=== PATIENT | female | born 1955 | race Caucasian/White ===

== ENCOUNTER → 2023-04-02 11:28 | Outpatient (CLI) | payer OTHER, SELFPAY | PROVIDERS: PCP Family Medicine; Visit Provider Specialist | DX: G47.33 Obstructive sleep apnea (adult) (pediatric) (principal) | CPT/HCPCS: 94762 ==

== ENCOUNTER 2025-02-22 16:36 | Outpatient (CLI) | payer MEDICARE, SELFPAY ==
--- OUTSIDE RECORDS SUMMARY | 2025-01-25 20:07 | XMS_ITS | Encounter Summary ---
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 No 01/26/2025 Overall Financial Resource Strain (CARDIA) Answe r Date Recorded How hard is it for you to pa y for the very basics like food, housing, medical care, and heating? Not very hard 01/26/2025 PHQ-2 Answer Date Recorded PHQ-2 Total Score 0 01/26/2025 [facility] - Occupational Stress Questionnaire Answer Date Recorded Do you feel stress - tense, restless, nervous, or anxious, or unable to sleep at night because your mind is troubled all the time - these days? Not at all 01/26/2025 Exercise Vital Sign Answer Date Recorde d On average, how many days pe r week do you engage in moderate to strenuous exercise (like a brisk walk)? 5 days 01/26/2025 On average, how many minutes do you engage in exercise at this level? 30 min 01/26/2025 Hunger Vital Sign Answer Date Recorded Within the past 12 months, y ou worried that your food would run out before you got the money to buy more. Never true 01/27/20 25 Within the past 12 months, t he food you bought just didn't last and you didn't have money to get more. Never true 01/26/2025 PRAPARE - Transportation Answer Date Re corded In the past 12 months, has l ack of transportation kept you from medical appointments or from getting medications? No 09/21 In the past 12 months, has l ack of transportation kept you from meetings, work, or from getting things needed for daily living? No 10/10/2021 [facility] IP Transportation Answer D ate Recorded In the past 12 months, has l ack of reliable transportation kept you from medical appointments, meetings, work or from getting things needed for daily living? No 01/26/2025 Sexually Active Control Partners Comments Yes Post-menopausal Male Comments No Sex and Gender Information Value Date Recorded Sex Assigned at Not on file Legal Sex Female 8:34 PM EDT Gender Identity Not on file Sexual Orientation Not on file documented as of this encounter Last Filed Vital Signs Vital Sign Reading Time Taken Comments Blood Pressure 135/60 01/27/2025 12:04 PM EDT Pulse 67 01/27/2025 12:04 PM EDT Temperature 36.4 C (97.5 F) 01/27/2025 12:04 PM EDT Respiratory Rate 16 01/27/2025 12:04 PM EDT Oxygen Saturation 95% 01/27/2025 12:04 PM EDT Inhaled Oxygen Concentration - - Weight - - Height - - Body Mass Index - - documented in this encounter Functional Status * Alcohol Screening Score Answer Date of Assessment Author 0 01/25/2025 10:00 PM EDT Cindi Lozano RN * Drug Screening Score Answer Date of Assessment Author 0 01/25/2025 10:00 PM EDT Cindi Lozano RN * Question Answer Date of Assessment Author How often do you have a drin k containing alcohol? 0 01/25/2025 10:00 PM EDT Deja Lozano R N How many drinks containing a lcohol do you have on a typical day when you are drinking? 0 01/25/2025 10:00 PM EDT Deja Lozano R N How often do you have six or more drinks on one occasion? 0 01/25/2025 10:00 PM BENITEZT Donta Lozano RN AUDIT-C to Determine Rows 4-10 0 01/25/2025 10:00 PM EDT Deja Lozano RN * Is the person deaf or does he/she have serious difficulty hearing? Answer Date of Assessment Author No 10/17/2021 11:46 AM Latha Atkins RN * Is the person blind or does he/she have serious difficulty seeing even when wearing glasses? Answer Date of Assessment Author No 10/17/2021 11:46 AM Latha Atkins RN * Does this person have serious difficulty walking or climbing stairs? Answer Date of Assessment Author No 10/17/2021 11:46 AM Latha Atkins RN * Does this person have difficulty dressing or bathing? Answer Date of Assessment Author No 10/17/2021 11:46 AM Latha Atkins RN * Because of a physical, mental or emotional condition, does this person have difficulty doing errands alone such as visiting a doctor's office or shopping? Answer Date of Assessment Author No 10/17/2021 11:46 AM Latha Atkins RN * Question Answer Date of Assessment Author Little interest or pleasure in doing things 0 01/26/2025 2:26 PM EDT Leatha Mansfield RN Feeling down, depressed, or hopeless 0 08/0 12/2024 2:26 PM EDT Leatha Mansfield RN PHQ-2 Total Score 0 01/26/2025 2:26 PM EDT Leatha Mansfield RN * PHQ-9 Total Score Answer Date of Assessment Author 0 01/26/2025 2:26 PM EDT Lyle Mansfield RN * PHQ-2 Total Score Answer Date of Assessment Author 0 01/26/2025 2:26 PM EDT Lyle Mansfield RN * Suicide Severity Rating Answer Date of Assessment Author No Risk 01/25/2025 10:49 PM EDT Cindi Lozano RN * [place] Suicide Severity Rating Scale (Q shift for moderate and high) Question Answer Date of Assessment Author 1. In the past month, have y ou wished you were or wished you could go to sleep and not wake up? 0 01/25/2025 10:49 PM EDT Deja Trujillo RN 2. In the past month, have y ou actually had any thoughts of killing yourself? (If no, skip to question 6) 0 01/25/2025 10:49 PM EDT Deja Lozano R N 6. Have you ever done anythi ng, started to do anything, or prepared to do anything to end your life? 0 01/25/2025 10:49 PM EDT Deja Oates RN documented as of this encounter Mental Status * Because of a physical, mental or emotional condition, does this person have serious difficulty concentrating, remembering or making decisions? Answer Entry Date Author No 10/17/2021 11:46 AM EDT Latha Loza RN documented in this encounter Discharge Summaries * Jone Watkins MD - 01/27/2025 12:00 PM EDT [facility] Discharge Summary Patient Name: Juani Arenas : 1955 Admit Date: 01/25/2025 Discharge Date: 01/27/2025 Admitting Physician: Edenilson Hirsch MD Discharging Physician: Jone Watkins MD Reason for Hospitalization: Active Hospital Problems *TIA (transient ischemic attack) Expressive aphasia Chronic a-fib (HCC) Coronary artery disease involving confederated salish coronary artery of confederated salish heart without angina pectoris Type 2 diabetes mellitus (HCC) Mild intermittent asthma without complication Hypothyroid Pure hypercholesterolemia Brief Hospital Summary: Juani Arenas is a 69 y.o. female admitted for transient neurologic event suspected to have beenTIA or recrudescence of prior stroke symptoms. Neurology consulted. Patient underwent CT head, CT angiogram head and neck, and MRI brain. EEG and echocardiogram completed as well. She was recommendedto remain on aspirin, Eliquis, and Crestor. LDL noted to be <70. Patient discharged home. ADDENDUM 02/01/2025: UA and urine culture results suggestive of UTI. Called patient and discussed. She denies any typical UTI symptoms, but reports she has had issues with UTI in the past with minimalsymptoms. Course of Keflex 500mg BID for 7 days sent to pharmacy. Patient in agreement with plan. Labs and imaging follow-up needed: Pending Labs Order Current Status Collection Date and Time URINE CULTURE (NO STAIN) In process 01/26/2025 11:39 AM Consultants: IP CONSULT TO NEUROLOGY Discharge Exam: General: Well appearing female. No acute distress. Lungs: Clear to auscultation bilaterally. Normal effort. Cardiac: Regular rate and rhythm. Abdomen: Soft. No tenderness. No distention. Normal bowel sounds. Extremities: No edema. Skin: Warm, dry. Neurologic: Alert. Oriented to person, place, time. Symmetrical face. PERRL, EOMI. Normal speech. Correct Full Discharge Med List: Medication List START taking these medications cephALEXin 500 mg Cap Dose: 500 mg Qty: 14 Capsule Refills: 0 Commonly known as: KEFLEX 500 mg, Oral, 2 TIMES DAILY CONTINUE taking these medications ACCU-CHEK GUIDE GLUCOSE METER Misc Refills: 0 Generic drug: Blood-Glucose Meter albuterol 90 mcg/actuation Hfaa Dose: 1 Puff Refills: 0 Commonly known as: PROVENTIL HFA;VENTOLIN HFA albuterol-ipratropium 3 mg-0.5 mg(2.5 mg base)/3 mL Nebu Dose: 3 mL Refills: 0 Commonly known as: DUO-NEB apixaban 5 mg Tab Dose: 5 mg Refills: 0 Commonly known as: ELIQUIS aspirin 81 mg Cap Dose: 1 Capsule Refills: 0 Blood Sugar Diagnostic Strp Refills: 0 BREZTRI AEROSPHERE 160-9-4.8 mcg/actuation Hfaa Dose: 1 Puff Refills: 0 Generic drug: zgugsofaxu-cefnexba-xfbsryhbod dilTIAZem 30 mg Tab Dose: 30 mg Refills: 0 Commonly known as: CARDIZEM fUROsemide 20 mg Tab Dose: 20 mg Refills: 0 Commonly known as: LASix Lancets Misc Refills: 0 LEVOthyroxine 88 mcg Tab Dose: 88 mcg Refills: 0 Commonly known as: SYNTHROID montelukast 10 mg Tab Dose: 10 mg Refills: 0 Commonly known as: SINGULAIR pantoprazole 40 mg Tbec Dose: 1 Tablet Refills: 0 Commonly known as: PROTONIX rosuvastatin 5 mg Tab Dose: 5 mg Refills: 0 Commonly known as: CRESTOR VITAMIN D3 10 mcg (400 unit) Cap Dose: 2 Capsule Refills: 0 Generic drug: cholecalciferol (vitamin D3) STOP taking these medications tirzepatide (weight loss) 2.5 mg/0.5 mL Pnij Commonly known as: Zepbound Where to Get Your Medications These medications were sent to [facility] [place] [id number] - [phone] - [phone] [facility] [address], [facility] [address] cephALEXin 500 mg Cap Condition at Discharge: good Disposition: Home Follow-up: MD Referral Line [phone] Please Call This Number To Establish A Family Physician. [phone] Follow up in 3 day(s) Primary care follow up Time spent on discharge: 30 to 74 minutes Jone Watkins MD documented in this encounter Medications at Time of Discharge albuterol (PROVENTIL HFA;VENTOLIN HFA) 90 mcg/actuation Inhl HFA Aerosol Inhaler Inhale 1 Puff into the lungs as needed. albuterol-ipratro pium (DUO-NEB) 0.5 mg-3 mg(2.5 mg base)/3 mL Inhl Solution for Nebulization Take 3 mL by nebulization as needed. apixaban (ELIQUIS) 5 mg Oral Tablet Take 5 mg by mouth 2 times daily. Blood Sugar Diagnostic Misc Strip by [facility].(Non-Drug; Combo Route) route 2 times daily. Blood-Glucose Meter (ACCU-CHEK GUIDE GLUCOSE METER) Misc Misc by [facility].(Non-Drug; Combo Route) route once. budesonide-glycop yr-formoterol (BREZTRI AEROSPHERE) 160-9-4.8 mcg/actuation Inhl HFA Aerosol Inhaler Inhale 1 Puff into the lungs daily. dilTIAZem (CARDIZEM) 30 mg Oral Tablet Take 30 mg by mouth 2 times daily. fUROsemide (LASIX) 20 mg Oral Tablet Take 20 mg by mouth daily as needed. 08/21/2021 Lancets Misc Misc by [facility].(Non-Drug; Combo Route) route 2 times daily. LEVOthyroxine (SYNTHROID) 88 mcg Oral Tablet Take 88 mcg by mouth every morning. 10/01/2021 montelukast (SINGULAIR) 10 mg Oral Tablet Take 10 mg by mouth daily. 10/01/2021 pantoprazole (PROTONIX) 40 mg Oral Tablet, Delayed Release (E.C.) Take 1 Tablet by mouth daily. 07/15/2022 rosuvastatin (CRESTOR) 5 mg Oral Tablet Take 5 mg by mouth daily. 07/21/2024 VITAMIN D3 10 mcg (400 unit) Oral Capsule Take 2 Capsules by mouth daily. 08/23/2021 aspirin 81 mg Oral Capsule Take 1 Capsule by mouth daily. cephALEXin (KEFLEX) 500 mg Oral Capsule Take 1 Capsule by mouth 2 times daily for 7 days. 14 Capsule 02/01/2025 5 documented as of this encounter Ordered Prescriptions Prescription Sig Dispense Quantity Refills Last Filled Start Date End Date cephALEXin (KEFLEX) 500 mg Oral Capsule Take 1 Capsule by mouth 2 times daily for 7 days. 14 Capsule 02/01/2025 5 documented in this encounter Discharge Disposition Disposition Code Departure Means Destination Comment s Home or Self [facility] documented in this encounter Progress Notes * Paige Hansen RN - 01/27/2025 12:30 PM EDT Patient being discharged. Discharge paperwork reviewed with patient, all questions/concerns answered at this time. IV removed, no complications. Heart monitor removed. All belongings are accounted for. * Juan Sneed MD - 01/27/2025 8:09 AM EDT Patient not seen. Discussed with this morning. No new symptoms reported and the patient continues to remain at baseline. EEG did not reveal any epileptiform abnormalities. Echo with no embolic sources. As such, the patient can continue aspirin and Eliquis as well as Crestor at home dose. No need for ASMs. Needs aggressive vascular risk factor modification as outpatient. Appreciate rest of the care per primary and consulting teams. No further recommendations from a neurological standpoint. We will sign off. Please call us with any questions or concerns. Thank you for allowing us to participate in this patient's care. Neurology Disposition- Will Sign off?: Yes (work up complete) Timeframe for follow-up?: No neurology follow up needed * Leatha Mansfield RN - 01/26/2025 2:34 PM EDT 01/26/25: CC initial/final note. CC met with patient at bedside. Pt lives with her spouse Garrett in [facility]. Pt has a rollator otherwise no further DME, home health or oxygen use prior to admit.PCP Paul, uses [facility]. PT recs reviewed and discussed. Patient declining home health and outpatient PT as recommended. PT aware she can follow up with PCP if decideonce discharged. Pt does drive, but states family will transport at time of discharge. CC to follow. * Nanda Arnold NA - 01/26/2025 12:22 PM EDT Followed up with patient on their request for additional information on Advance Directives. Patient declined information. * Jacob Caicedo PharmD - 01/26/2025 12:19 PM EDT The patient and/or family/caregiver has been educated on their direct oral anticoagulant therapy and provided with written anticoagulant education material including: Indication for the medication and what to do if they miss a dose Importance of compliance with medication regimen and physician follow-up visits. Medications that will increase their bleeding risk Signs and symptoms of bleeding Jacob Caicedo PharmD * Yanna Segal, PT - 01/26/2025 10:22 AM EDT 01/26/25 0857 PT Subjective Note Type Evaluation Patient Room/Unit 3610 PT Subjective Comments #1 Pt was agreeable, pleasant and cooperative. Second attempt. 1st attempt at 0730, pt at ECHO. Others Present/Assisting MENA Herndon in to do neuro check, Neurology student in to see pt. Discharge Information Evaluation to serve as discharge summary if no further treatment provided before the facility discharge Admitting Diagnosis Stroke Like Symptoms. Past Med Hx has a past medical history of A-fib (HCC), Asthma, Atrial fibrillation (HCC), Bladder infection, Diabetes mellitus (HCC), Hyperlipidemia, Kidney failure, Kidney infection, Obesity, Pulmonary embolism (HCC), Sleep apnea, Stroke (HCC), Thyroid disease, and Tuberculosis. has a past surgical history that includes Mediastinoscopy; hip surgery (Bilateral); knee surgery (Right); ERCP (N/A, 10/11/2021); ERCP (N/A, 10/15/2021); and Cholecystectomy, laparoscopic (N/A, 2021). Diagnostic Testing CT/CTA and MRI negative for acute process. Clinical Course Pt describes sudden onset of expressive aphasia and a few minutes of being completely unable to speak. Once she could say some words, she was still struggling to process and get wordsout. She also had some RUE weakness. She reports the weakness feels resolved but she still feels her processing and speaking is not back to baseline. Pt was slightly tearful with giving this information (labile?) and did state that when the sudden onset occurred, she had a feeling she was going to . Pain Screening PT/OT Patient Currently in Pain No Cognition Orientation Intact Arousal Impaired Arousal Impairment Delayed responses to stimuli (Very slight delay in processing and forumlating responses.) Safety Awareness Normal Affect/Ability to cope Impaired Affect/Ability to cope impairment Tearful Command Following Normal Memory Intact Communication Impaired Verbal processing While no speficic aphasia noted, no word finding or wrong words noted, pt does take slightly more time to think/process and respond. She has a perception that this has not yet fullyresolved. Additional comments Pt is able to answer, respond and give details. She is very engaged and puts forth good effort. Precautions Therapy Precautions Yes Precaution Info Given Yes;To use call light to request assistance with all mobility Other precautions Pt is a high falls risk due to previous RLE weakness. Home Living/Prior Function Type of Home Apartment Home Layout One level;Tub/Shower Number of Steps 0 Additional Comments Pt has an old rollator that was given to her by a neighbor. It is in poor repair. Pt does use 4WW at all times for gt. Home Equipment 4 wheeled walker;Grab bars Level of Assistance Independent with ADLs ;Independent with functional transfers;Needs assistance with homemaking;Ambulatory in home Lives With Spouse Additional Comments Pt reports she had a blood clot in R leg about 2 years ago that required extensive treatment. She states that it damaged her femoral nerve and that she has catastropic weakness inLLE and no sensation in LLE. This is why she always uses a RW. Coord/Sensation Assessed Impaired Light Touch Partial deficits in the RUE;Severe deficits in the LLE Perception Perception Grossly intact/normal Observation Presentation Patient seated edge of bed Posture 5'6 233# Observation Telemetry UE Assessment LUE Assessment WFL RUE Assessment X RUE Additional Comments RUE is WFL for AROM and strength, but there is a very slight asymmetry noted that RUE is slightly weaker than LUE. Sensation RUE intact, but takes longer to verbalize. LE Assessment LLE Assessment X LLE Additional Comments LLE has catastrophic weakness noted in hip flexors, quads. She is not able to hold RLE in LAQ with any resistance. She can take very touch resistance to hamstrings. She reports this is baseline for her since the blood clot in LLE. RLE Assessment WFL Bed Mobility Additional Comments Not tested, sitting on side of bed just back from ECHO with transport. Transfers Sit to Stand Contact guard assist Stand to Sit Contact guard assistance Bed to/from chair Contact guard assist Gait Gait Contact guard assist Gait Distance (Feet) 20 Feet (x3) Assistive Device 2 Wheel walker Pattern Decreased stance time L;Antalgic;Hip hike L;Foot flat L;L genurecurvatum;Decreased step length L Additional Comments Pt stands with LLE locked into extension-into some genurecurvatum. She does notuse knee motion in gt, but hikes hip to clear foot and ambulates with a straight leg. She states this is her baseline. PT/OT Mobility Documentation PT/OT Mobility Score 6 AM PAC: How much help from another person does the patient currently need... turning from your back to your side while in a flat bed without using bedrails? 3 moving from lying on your back to sitting on the side of a flat bed without using bedrails? 3 moving to and from a bed to a chair? 3 standing up from a chair using your arms (e.g. wheelchair, or bedside chair)? 3 need to walk in hospital room? 3 climbing 3-5 steps with a railing? 2 AM PAC: BASIC MOBILITY SCORING AM PAC Moblity Raw Score 17 AM PAC Mobility CMS 0-100% Functional Percentage 43.83 AM PAC Mobility CMS G Code Modifier CK Balance Sitting Balance 4/5 moves/returns trunkal midpoint 1-2 inches in multiple planes Standing Balance 2/5 indep, requires both UE support Additional comments Pt definately needs UE support for gt. Exercise Additional Comments Assisted to BR, pt washed hands/face, brushed teeth, combed hair. Then had pt ambulate again for neuro to observe. Menu obtained for pt to order breakfast. Education Education To use call light to request assistance with all mobility Patient Safety Patient Safety Patient left in chair with needs in reach;Nursing notified of status;Chair/personal alarm activated Assessment Assessment Decreased gait;Decreased Left Lower Extremity strength;Decreased Right Upper Extremity ROM Prognosis Good Rationale for Skilled Therapy Fall Risk;Balance Deficits;Not safe ambulating independently Additional Comments Pt is near baseline. She has baseline issues with LLE. She does have some very mild weakness RUE and still feels like her speech is not back to baseline. Goals Patient and/or Family Goal To go home. PT GOALS (Yes/No) Yes Add Goals Will Ambulate With 2 wheel walker;51-100 feet Goal Formulation With patient Time for Goal Achievement/Duration of Treatment 1 week Plan Treatment/Interventions Gait training PT Frequency 3-5x/week Recommendation PT Recommendation Home with prior support;Low frequency therapy with intensity appropriate for patient need recommended. Additional PT discharge information Pt may benefit from OP PT to address slight weakness in RUE andto possibly work towards strengthening of LLE to improve safety and decrease risk of falls with injury. Time In / Time Out [id number] IP PT Evaluation Minutes 10 IP PT Treatment Minutes 43 (23gt, 20 TA) * Edenilson Hirsch MD - 01/26/2025 9:54 AM EDT HOSPITALIST PROGRESS NOTE Admit Date: 01/25/2025 LOS: 1 day FOLLOW UP REASON (S): Transient expressive aphasia with right upper extremity weakness, history of A-fib, history of DVT/PE Subjective: Seen today, doing well. No fever. No sob. No nausea vomiting. Was transient expressive aphasia felt I was going to while eating with her . No recent headache. No recent stress. Was placed on aricept recently for memory loss (has not picked up med yet). Objective: I have reviewed all labs, imaging studies and current inpatient medications as of this date Scheduled Meds: apixaban 5 mg Oral BID aspirin 81 mg Oral Daily budesonide-formoteroL 2 Puff Inhalation RESP BID cholecalciferol (vitamin D3) 800 Units Oral Daily dilTIAZem 30 mg Oral 2 times per day Insulin Calculator (AMMONIA REFRIGERATION TECHNICIAN) - FSBS (Correction Only) Input 1 Each MISCELLANEOUS QID MEALTIME/HS And insulin aspart (NovoLOG) - Correction - Calculator 0-40 Units Subcutaneous QID MEALTIME/HS LEVOthyroxine 88 mcg Oral QAM montelukast 10 mg Oral Daily pantoprazole 40 mg Oral Daily rosuvastatin 5 mg Oral Daily Continuous Infusions: BP 135/62 (BP Location: Right arm, Patient Position: Sitting) Pulse 62 Temp 97.1 ??F (36.2 ??C)(Oral) Resp 16 SpO2 99% Patient is alert, awake, oriented x3 Clear lungs auscultation Regular heart rate, no audible murmur Soft, nontender to palpation No leg edema Radiology: EK EKG 12 LEAD Result Date: 01/26/2025 [facility] Test Date: 2025-01-25 Pat Name: JUANI ARENAS Department: DEPID Room: E3610 Gender: Female Instrument Designer: : 1955 Requested By: EDENILSON HIRSCH OrderNumber: [id number] Reading MD: Rikki Calderon Measurements Intervals [place] Rate: 60 P: 61 WA: 168 QRS: -8 QRSD: 92 T: 23 QT: 428 QTc: 430 Interpretive Statements SINUS RHYTHM BORDERLINE LEFT AXIS DEVIATION NONSPECIFIC T WAVE ABNORMALITY WARNING: DATA QUALITY MAY AFFECT INTERPRETATION Electronically Signed On 01-26-2025 06:47:17 EDT by Rikki Calderon MRI BRAIN WO CONTRAST Result Date: 01/25/2025 MRI BRAIN WITHOUT CONTRAST, 01/25/2025 10:16 PM CLINICAL HISTORY: -stroke. COMPARISON: None. PROCEDURE COMMENTS: Multiplanar multiecho MR imaging of the brain including standard spin echo and diffusionsequences. FINDINGS: Moderate motion degradation of the examination is noted. Background involutional change including white matter hyperintensities typical of chronic microvascular ischemic disease.No acute stroke, hemorrhage, or mass lesion identified. Included portions of the paranasal sinuses,mastoids, and orbits unremarkable. Moderate degenerative changes of the cervical spine are partially imaged. * No acute intracranial abnormality. - Note: Radiology results need to be interpreted within a comprehensive clinical context. If you have questions about the radiology report, please contact the office of the ordering clinician. 69-year-old female with history of A-fib, DVT PE on Eliquis, came in from [facility] for evaluation of expressive aphasia. MRI of the brain with no stroke. Pending EEG. Seen by neurology. Expect home later or in a.m. ASSESSMENT AND RECOMMENDATIONS: Transient expressive aphasia. Differential include TIA. 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 MRI of the brain here with no stroke Echocardiogram pending Currently has no neurological deficit Continue with telemetry Currently on Eliquis and aspirin, statin PT eval Seen by neurology, EEG pending History of atrial fibrillation On Eliquis, diltiazem History of DVT and PE Continue with Eliquis History of prior stroke Hypothyroidism Levothyroxine Previous retroperitoneal hemorrhage on coumadin History of obesity Discussed with patient Edenilson Hirsch MD * Jesse Merino MD - 01/26/2025 12:04 AM EDTAssociated Problem(s): TIA (transient ischemic attack) Likely TIA given near complete resolution of symptoms CT head, CTA head/neck negative for any acute abnormalities MRI brain here at [facility] showed no evidence of acute stroke Resume 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 Eliquis/aspirin/Crestor Patient inquiring if there is benefit for adding Plavix, will check with neurology 2D echo with bubble study Neurology consult No evidence of recurrent A-fib on EKG/telemetry so far Risk factor reduction * Jesse Merino MD - 01/26/2025 12:04 AM EDTAssociated Problem(s): Expressive aphasia Likely TIA given near complete resolution of symptoms CT head, CTA head/neck negative for any acute abnormalities MRI brain here at [facility] showed no evidence of acute stroke Resume 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 Eliquis/aspirin/Crestor Patient inquiring if there is benefit for adding Plavix, will check with neurology 2D echo with bubble study Neurology consult No evidence of recurrent A-fib on EKG/telemetry so far Risk factor reduction * Jesse Merino MD - 01/26/2025 12:04 AM EDTAssociated Problem(s): Pure hypercholesterolemia 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 Crestor Lipid panel in a.m. ordered * Jesse Merino MD - 01/26/2025 12:04 AM EDTAssociated Problem(s): Hypothyroid 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 levothyroxine Appears clinically euthyroid * Jesse Merino MD - 01/26/2025 12:04 AM EDTAssociated Problem(s): Mild intermittent asthma without complication Resume albuterol and Symbicort inhalers * Jesse Merino MD - 01/26/2025 12:04 AM EDTAssociated Problem(s): Type 2 diabetes mellitus (HCC) Sliding scale insulin Last A1c 5.9 in July * Jesse Merino MD - 01/26/2025 12:04 AM EDTAssociated Problem(s): Chronic a-fib (HCC) On rate control with Cardizem 30 Mg twice daily Resume 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 Eliquis Currently in sinus rhythm * Jesse Merino MD - 01/26/2025 12:04 AM EDTAssociated Problem(s): Coronary artery disease involving confederated salish coronary artery of confederated salish heart with out angina pectoris Resume aspirin, statin for secondary prevention Follows with cardiology at [place] documented in this encounter H&P Notes * Jesse Merino MD - 01/25/2025 8:28 PM EDT Images from the original note were not included. HISTORY AND PHYSICAL Name: Juani Arenas : 1955 AGE: 69 y.o. PCP: No primary care provider on file. Admitting Physician: Jesse Merino MD Date of Admit: 01/25/2025 ASSESSMENT AND PLAN Active Hospital Problems Diagnosis *Stroke-like symptoms Expressive aphasia Chronic a-fib (HCC) Coronary artery disease involving confederated salish coronary artery of confederated salish heart without angina pectoris Type 2 diabetes mellitus (HCC) Mild intermittent asthma without complication Hypothyroid Pure hypercholesterolemia Assessment & Plan Stroke-like symptoms Expressive aphasia Likely TIA given near complete resolution of symptoms CT head, CTA head/neck negative for any acute abnormalities MRI brain here at [facility] showed no evidence of acute stroke 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 ordered Hypothyroid 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 levothyroxine Appears clinically euthyroid Mild intermittent asthma without complication Resume albuterol and Symbicort inhalers Type 2 diabetes mellitus (HCC) Sliding scale insulin Last A1c 5.9 in July Chronic a-fib (HCC) On rate control with Cardizem 30 Mg twice daily Resume 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 Eliquis Currently in sinus rhythm Coronary artery disease involving confederated salish coronary artery of confederated salish heart without angina pectoris Resume aspirin, statin for secondary prevention Follows with cardiology at [place] 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 meds to be restarted/held as appropriate above once med rec is completed VTE Prophylaxis: Qualifying Pharmacologic Prophylaxis apixaban (ELIQUIS) tablet 5 mg 2 TIMES DAILY FEN: NPO DIET Dispo: Condition requiring admission to observation for further evaluation and management. Code Status: Full CHIEF COMPLAINT: Transfer from [facility] for strokelike symptoms HISTORY OF PRESENT ILLNESS: Juani Arenas is a 69 y.o. female who presented to the ED for above complaints. Pt has a pmhx significant for stroke 3 years ago, A-fib on Eliquis, CAD, type II DM, asthma, hypothyroidism, HLD Patient presented to the ED at [facility] in [facility] earlier today with speech problems. She reported at around 11:30 AM when she was consuming lunch she had sudden onset difficulty with her speech. She reported she was mispronouncing the words and could not bring out all the words that she wanted to speak. She reported her right upper extremity was slightly weak. Denied any numbness or tingling in the extremities. Denied any facial droop or facial numbness. Denied any vision problems. She reported she had some lightheadedness along with the speech problems. She went to the ED at [place]. They obtained CT scan of the head which was negative. CTA head and CTA neck was done which was negative as well. She was considered not a candidate for TNK because symptoms were getting better and that she was on Eliquis. Patient reported symptoms have gradually been getting better and her speech is almost back to normal but not there yet. She does report compliance with Eliquis and aspirin daily. Gets most of her care at [facility]. She denied any chest pain or palpitations. ROS: All other ROS negative except as noted above ALLERGIES: Allergies Allergen Reactions Venom-Honey Bee Anaphylaxis Latex Other (See Comments) Not specified Penicillins HOME MEDS: Prior to Admission medications Medication Sig Start Date End Date Taking? Authorizing Provider albuterol (PROVENTIL HFA;VENTOLIN HFA) 90 mcg/actuation Inhl HFA Aerosol Inhaler Inhale 1 Puff intothe lungs as needed. Provider, Historical albuterol-ipratropium (DUO-NEB) 0.5 mg-3 mg(2.5 mg base)/3 mL Inhl Solution for Nebulization Take 3mL by nebulization as needed. Provider, Historical apixaban (ELIQUIS) 5 mg Oral Tablet Take 5 mg by mouth 2 times daily. Provider, Historical aspirin 81 mg Oral Capsule Take 1 Capsule by mouth daily. Provider, Historical Blood Sugar Diagnostic Misc Strip by [facility].(Non-Drug; Combo Route) route 2 times daily. Provider, Historical Blood-Glucose Meter (ACCU-CHEK GUIDE GLUCOSE METER) [facility] Misc by [facility].(Non-Drug; Combo Route) routeonce. Provider, Historical budesonide-formoteroL (SYMBICORT) 160-4.5 mcg/actuation Inhl HFA Aerosol Inhaler Inhale 2 Puffs into the lungs 2 times daily. Provider, Historical dilTIAZem (CARDIZEM LA) 180 mg Oral Tablet Sustained Release 24 hr Take 180 mg by mouth daily. Provider, Historical fUROsemide (LASIX) 20 mg Oral Tablet Take 20 mg by mouth daily as needed. 08/21/21 Provider, Historical Lancets Misc Misc by [facility].(Non-Drug; Combo Route) route 2 times daily. Provider, Historical LEVOthyroxine (SYNTHROID) 88 mcg Oral Tablet Take 88 mcg by mouth every morning. 10/01/21 Provider, Historical montelukast (SINGULAIR) 10 mg Oral Tablet Take 10 mg by mouth daily. 10/01/21 Provider, Historical pantoprazole (PROTONIX) 40 mg Oral Tablet, Delayed Release (E.C.) Take 1 Tablet by mouth daily. 07/15/22 Provider, Historical rosuvastatin (CRESTOR) 5 mg Oral Tablet Take 5 mg by mouth daily. 07/21/24 Provider, Historical tirzepatide, weight loss, (ZEPBOUND) 2.5 mg/0.5 mL SubQ Pen Injector Subcutaneous (Inject under theskin) 2.5 mg once a week. 08/17/24 Ysabel Bhatt MD VITAMIN D3 10 mcg (400 unit) Oral Capsule Take 2 Capsules by mouth daily. 08/23/21 Provider, Historical PMH: Past Medical History: Diagnosis Date A-fib (HCC) Asthma Atrial fibrillation (HCC) Bladder infection Diabetes mellitus (HCC) pt states she is no longer diabetic 10/11/21 Hyperlipidemia Kidney failure Kidney infection Obesity Pulmonary embolism (HCC) Sleep apnea Stroke (HCC) Thyroid disease Tuberculosis PMHx reviewed. Pertinent history as listed in HPI. SURGICAL HX: Past Surgical History: Procedure Laterality Date CHOLECYSTECTOMY, LAPAROSCOPIC N/A 2021 LAPAROSCOPIC CHOLECYSTECTOMY WITH INTRAOPERATIVE CHOLANGIOGRAM, COMMON BILE DUCT EXPLORATION ; Surgeon: Portillo Kerr DO; Location: [facility] MA[facility] OR; Service: General ERCP N/A 10/11/2021 ENDOSCOPIC RETROGRADE CHOLANGIOPANCREOGRAPHY with stent placement; Surgeon: Emily Viveros MD; Location: [facility] ENDOSCOPY; Service: Endoscopy ERCP N/A 10/15/2021 ENDOSCOPIC RETROGRADE CHOLANGIOPANCREOGRAPHY with sphincterotomy and stent exchange; Surgeon: Nathaly Viveros MD; Location: [facility] ENDOSCOPY; Service: Endoscopy HIP SURGERY Bilateral KNEE SURGERY Right MEDIASTINOSCOPY Surgical hx reviewed. Pertinent history as listed in HPI. FHX: Family History Problem Relation Age of Onset Diabetes Mother Heart Attack Mother Diabetes Sister Diabetes Brother Family history reviewed. Pertinent history as listed in HPI. SOCIAL HX: Social History Tobacco Use Smoking status: Never Smokeless tobacco: Never Substance Use Topics Alcohol use: No Social hx reviewed. Pertinent history as listed in HPI. OBJECTIVE: Physical Exam Vitals: 01/25/252019 BP: 153/94 Pulse: 70 Temp: 98.1 ??F (36.7 ??C) BP 153/94 (BP Location: Right arm, Patient Position: Semi Fowlers) Pulse 70 Temp 98.1 ??F (36.7??C) (Oral) Wt Readings from Last 3 Encounters: 08/17/24 233 lb 3.2 oz (105.8 kg) 11/05/21 212 lb 12.8 oz (96.5 kg) 10/10/21 224 lb 6.9 oz (101.8 kg) There is no height or weight on file to calculate BMI. Gen: Pt appears well-developed and well-nourished, in no acute distress; awake; alert HENT: normocephalic, atraumatic, moist oral mucosa, conjunctiva normal, no scleral icterus, Conjunctivae and EOM are normal MMM, Nares patent, neck with normal range of motion. Neck supple. Pulm: Normal respiratory effort; symmetric chest rise, CTAB , no rales, wheeze or ronchi CV: S1-S2 heard, RRR, no murmur, no rub or gallop Extremities - well perfused extremities; distal pulses intact, Abd: soft, non tender, no guarding or rigidity, non-distended, + bowel sounds Skin: warm, No sores, ulcers or rashes visible with pt laying in bed Lymphatic: no retroauricular lymphadenopathy, no cervical lymphadenopathy MSK: No gross deformity or contracture, no LE edema Neuro: alert and oriented to person, place, and time, speech normal Cranial Nerves: No cranial nerve deficit. Sensory: No sensory deficit. Motor: No weakness. Psych: Mood and affect normal. calm and cooperative Radiology/ Procedures/Labs: Pertinent imaging and laboratory studies mentioned above were personally reviewed unless otherwise noted. I reviewed CT head, CTA head/neck done at [facility], no acute intracranial abnormality, no LVO or dissection seen in the intracranial and cervical vessels. I personally reviewed the MRI brain done here at [place], it did not show any evidence of stroke I reviewed the EKG personally, NSR, rate 84, normal intervals, no acute ischemic changes seen Media Information Document Information Clinical Images Ekg 01/25/2025 22:27 Attached To: Hospital Encounter on 01/25/25 Source Information Jesse Merino MD Md Adult Med Document History Labs: CBC: Lab Results Component Value Date WBC 7.8 01/25/2025 RBC 4.45 01/25/2025 HGB 13.5 01/25/2025 HCT 38.8 01/25/2025 MCV 87.2 01/25/2025 MCHC 34.8 01/25/2025 RDW 12.6 01/25/2025 MPV 9.4 01/25/2025 BMP: Lab Results Component Value Date NA 139 01/25/2025 K 3.7 01/25/2025 CL 107 01/25/2025 CO2 19 (L) 01/25/2025 BUN 20 01/25/2025 CREATININE 1.22 01/25/2025 CALCIUM 9.3 01/25/2025 GLU 136 (H) 01/25/2025 Hepatic: Lab Results Component Value Date ALKPHOS 89 01/25/2025 ALT 28 01/25/2025 AST 27 01/25/2025 PROT 6.7 01/25/2025 LABBILI 0.7 01/25/2025 BILIDIR 0.3 01/25/2025 No results found for: AMYLASE , LIPASE U/A:No results found for: SPECGRAV , UAPROTEIN , BLOODU , NITRITE , LEUKOCYTESUR , WBCUA , RBCUA Coagulation: Lab Results Component Value Date INR 1.41 (H) 01/25/2025 Cardiac markers: No results found for: CKMB , MYOGLOBIN ABGs:No results found for: PH , PCO2 , PO2 , HCO3 , TCO2 , BASEEXCESS , O2SAT , INSPIREDO2 , SPECIMENTYPE Radiology: EK EKG 12 LEAD Result Date: 01/25/2025 NOTICE: Preliminary tracing available for review; Final Interpretation by physician to follow. 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 Information might be incomplete. Narrative NOTICE: Preliminary tracing available for review; Final Interpretation by physician to follow. 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 COMPARISON: None. PROCEDURE COMMENTS: Multiplanar multiecho MR imaging of the brain including standard spin echo and diffusion sequences. FINDINGS: Moderate motion degradation of the examination is noted. Background involutional change including white matter hyperintensities typical of chronic microvascular ischemic disease. No acute stroke, hemorrhage, or mass lesion identified. Included portions of the paranasal sinuses, mastoids, and orbits unremarkable. Moderate degenerative changes of the cervical spine are partially imaged. Impression * No acute intracranial abnormality. - Note: Radiology results need to be interpreted within a comprehensive clinical context. If you have questions about the radiology report, please contact the office of the ordering clinician. Jesse Merino MD This chart was completed using voice recognition technology and may contain unintended errors documented in this encounter Consult Notes * Juan Sneed MD - 01/26/2025 8:18 AM EDTAssociated Order(s): IP CONSULT TO NEUROLOGY Neurology Consult Note Admit date: 01/25/2025 Current Length of stay: 1 day(s) Chief Complaint: Transient neurological spell Requesting Provider: Dr. Jesse Merino History of Presenting Illness This is a 69 y.o. female with history of stroke (affected the right side with good recovery, 3 years ago), A fib (on Eliquis), T2DM, HLD, CAD, and sleep apnea who I am seeing in neurologic consultation for evaluation of stroke. Ms. Arenas presented to the ED at [facility] on 01/25/25 due to concerns for speech difficulties. She reported eating lunch around 11:30 am when she experienced sudden onset speech difficulties, headache, and feeling like she was dying. She described difficulty with thinking of what shewanted to say and difficulty with getting words out. She reported her headache being all over thetop of her head. She also reported mild right upper extremity weakness but stated she could still use her arm. CT head and CTA H/N were conducted at the outside hospital with no acute findings, and she was then transferred to [place]. She reported overall subjective worsening of her symptoms throughout the day, with resolution shortly after she was transferred to [facility]. Today, she feelsback to her baseline. She reports compliance with eliquis, aspirin, crestor, and all other medications. She had presented to the [facility] in 2022 with right-sided weakness and at the time, suspicion for stroke was low per documentation review. There was some concern for functional etiology. 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 ROS: Relevant review of system was completed and was negative except as mentioned in HPI Past Medical/ Surgical History Past Medical History: Diagnosis Date A-fib (HCC) Asthma Atrial fibrillation (HCC) Bladder infection Diabetes mellitus (HCC) pt states she is no longer diabetic 10/11/21 Hyperlipidemia Kidney failure Kidney infection Obesity Pulmonary embolism (HCC) Sleep apnea Stroke (HCC) Thyroid disease Tuberculosis Active Hospital Problems Diagnosis *Stroke-like symptoms Expressive aphasia Chronic a-fib (HCC) Coronary artery disease involving confederated salish coronary artery of confederated salish heart without angina pectoris Type 2 diabetes mellitus (HCC) Mild intermittent asthma without complication Hypothyroid Pure hypercholesterolemia Past Surgical History: Procedure Laterality Date CHOLECYSTECTOMY, LAPAROSCOPIC N/A 2021 LAPAROSCOPIC CHOLECYSTECTOMY WITH INTRAOPERATIVE CHOLANGIOGRAM, COMMON BILE DUCT EXPLORATION ; Surgeon: Portillo Kerr DO; Location: [facility] OR; Service: General ERCP N/A 10/11/2021 ENDOSCOPIC RETROGRADE CHOLANGIOPANCREOGRAPHY with stent placement; Surgeon: Emily Viveros MD; Location: [facility] ENDOSCOPY; Service: Endoscopy ERCP N/A 10/15/2021 ENDOSCOPIC RETROGRADE CHOLANGIOPANCREOGRAPHY with sphincterotomy and stent exchange; Surgeon: Nathaly Viveros MD; Location: [facility] ENDOSCOPY; Service: Endoscopy HIP SURGERY Bilateral KNEE SURGERY Right MEDIASTINOSCOPY Medications No current facility-administered medications on file prior to encounter. Current Outpatient Medications on File Prior to Encounter Medication Sig Dispense Refill albuterol (PROVENTIL HFA;VENTOLIN HFA) 90 mcg/actuation Inhl HFA Aerosol Inhaler Inhale 1 Puff intothe lungs as needed. albuterol-ipratropium (DUO-NEB) 0.5 mg-3 mg(2.5 mg base)/3 mL Inhl Solution for Nebulization Take 3mL by nebulization as needed. apixaban (ELIQUIS) 5 mg Oral Tablet Take 5 mg by mouth 2 times daily. Blood Sugar Diagnostic Misc Strip by Misc.(Non-Drug; Combo Route) route 2 times daily. Blood-Glucose Meter (ACCU-CHEK GUIDE GLUCOSE METER) Misc Misc by [facility].(Non-Drug; Combo Route) routeonce. ocilamqxgm-slfcnoxb-hjrwybxvjl (BREZTRI AEROSPHERE) 160-9-4.8 mcg/actuation Inhl HFA Aerosol Inhaler Inhale 1 Puff into the lungs daily. dilTIAZem (CARDIZEM) 30 mg Oral Tablet Take 30 mg by mouth 2 times daily. fUROsemide (LASIX) 20 mg Oral Tablet Take 20 mg by mouth daily as needed. Lancets Misc Misc by Misc.(Non-Drug; Combo Route) route 2 times daily. LEVOthyroxine (SYNTHROID) 88 mcg Oral Tablet Take 88 mcg by mouth every morning. montelukast (SINGULAIR) 10 mg Oral Tablet Take 10 mg by mouth daily. pantoprazole (PROTONIX) 40 mg Oral Tablet, Delayed Release (E.C.) Take 1 Tablet by mouth daily. rosuvastatin (CRESTOR) 5 mg Oral Tablet Take 5 mg by mouth daily. VITAMIN D3 10 mcg (400 unit) Oral Capsule Take 2 Capsules by mouth daily. aspirin 81 mg Oral Capsule Take 1 Capsule by mouth daily. tirzepatide, weight loss, (ZEPBOUND) 2.5 mg/0.5 mL SubQ Pen Injector Subcutaneous (Inject under theskin) 2.5 mg once a week. (Patient not taking: Reported on 01/25/2025) 2 mL 3 Scheduled Meds: apixaban 5 mg Oral BID aspirin 81 mg Oral Daily budesonide-formoteroL 2 Puff Inhalation RESP BID cholecalciferol (vitamin D3) 800 Units Oral Daily dilTIAZem 30 mg Oral 2 times per day Insulin Calculator (AMMONIA REFRIGERATION TECHNICIAN) - FSBS (Correction Only) Input 1 Each MISCELLANEOUS QID MEALTIME/HS And insulin aspart (NovoLOG) - Correction - Calculator 0-40 Units Subcutaneous QID MEALTIME/HS LEVOthyroxine 88 mcg Oral QAM montelukast 10 mg Oral Daily pantoprazole 40 mg Oral Daily rosuvastatin 5 mg Oral Daily Continuous Infusions: PRN Meds:.acetaminophen, budesonide-formoteroL AND albuterol, dextrose, glucagon AND sterile water, melatonin, ondansetron OR ondansetron Allergies Allergen Reactions Venom-Honey Bee Anaphylaxis Latex Other (See Comments) Not specified Penicillins Family History Family History Problem Relation Age of Onset Diabetes Mother Heart Attack Mother Diabetes Sister Diabetes Brother Social History Social History Tobacco Use Smoking status: Never Smokeless tobacco: Never Substance Use Topics Alcohol use: No Physical Examination: Reviewed vitals trend over past 24 hours NEUROLOGICAL EXAMINATION: MENTAL STATUS: Alert and oriented to person place and time, follows 1 and 2 step commands. CORTEX: Speech fluent and without anomia or paraphasic errors. No difficulty with naming or repetition. No neglect. Affect normal. CRANIAL NERVES: Visual perales intact. Pupils 4mm, equal and reactive to light bilaterally. EOMI. Face symmetric. Sensation intact. Palate elevates equally bilaterally, tongue midline. MOTOR: Strength: RUE: 5/5, RLE: 5/5, LUE: 5/5, LLE: 4+/5 chronically ever since retroperitoneal hematoma. Tone is normal, bulk is symmetric. SENSORY: Intact to light touch. REFLEXES: 2+ throughout BL UE, absent patellars bilaterally. No Jiang's, no clonus, downgoing toes COORDINATION: Finger to Nose testing is normal. GAIT: walks with walker, antalgic gait (keeps left leg straight due to femoral nerve issue per patient) Results: Personally reviewed the following imaging studies CT head without contrast - no acute intracranial abnormalities CTA H/N - no LVO or significant stenosis MRI brain without contrast - no acute intracranial abnormality LDL 65 Impression and Plan Ms. Arenas is a 69 year old female with a PMHx of previous stroke affecting her right side with no baseline weakness (3 years ago), A fib (on Eliquis), T2DM, HLD, CAD, and sleep apnea who presented with acute onset aphasia, RUE weakness, and headache with resolution of symptoms within 24 hours. Acute onset expressive aphasia with RUE weakness and central headache History of previous stroke A-fib Differentials include recrudescence of prior stroke symptoms in the setting of hypertensive urgency, TIA. Does need further evaluation for partial seizures. -Continue aspirin and Eliquis for secondary stroke prophylaxis. No evidence of any benefit from switching either antiplatelet agent or anticoagulant - Continue Crestor at home dose. LDL at target - Blood pressure goal normotension - EEG 4. 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 No further workup required from the standpoint. Discussed with the patient and she is in agreement. Thank you for the opportunity to participate in the care of Juani Arenas. Please do not hesitate to call with further questions or concerns. Natalya See, Medical Student Neurology I saw and evaluated this patient with the medical student. I personally obtained the history, performed the physical exam and formulated the assessment and plan in the documentation has been modifiedto reflect accuracy. TIFFANY Riddle Neurology Neurology Disposition- Will Sign off?: No Anticipated discharge timeframe?: Today Discharge when / if?: EEG completion. This note was generated using voice recognition technology. It has been reviewed by the undersigned, however, may still contain unintended errors. documented in this encounter Miscellaneous Notes * Utilization Review Notes - Damaris Cano RN - 01/27/2025 11:31 AM EDT CONT'D STAY REVIEW FROM [facility] TO [facility] 3S TELEMETRY FOR STROKE LIKE SYMPTOMS, EXPRESSIVE APHASIA + OBS ORDER ON CHART ADMIT 01/25/25 TELEMETRY, NEUROLOGY -PT FOLLOWING, ELIQUIS PO BID, INSULIN PROTOCOL, NEBS PER RESP TX, NEURO CHECKS Q4 HRS PER NEUROLOGY: Discussed with this morning. No new symptoms reported and the patient continues to remain at baseline. EEG did not reveal any epileptiform abnormalities. Echo with no embolic sources. As such, the patient can continue aspirin and Eliquis as well as Crestor at home dose. No need for ASMs. Needs aggressive vascular risk factor modification as outpatient. Appreciate rest of the care per primary and consulting teams. No further recommendations from a neurological standpoint. We will sign off. Please call us with any questions or concerns. Thank you for allowing us to participate in this patient's care. Neurology Disposition- Will Sign off?: Yes (work up complete) Timeframe for follow-up?: No neurology follow up needed D/C PLAN: INDEPENDENT PRIOR TO ADMISSION - PT RECOMMENDS HOME HEALTH AND PATIENT DECLINES AT THIS TIME; PENDING FURTHER ASSESSMENTS. * RT Oxygen Plan of Care Note - Luz Higuera RRT - 01/27/2025 8:24 AM EDT Images from the original note were not included. January 27, 2025 Oxygen Therapy: Maintain Oxygen Sat greater than or equal to: O2 Device: Room Air SpO2: 97 % Will continue to wean oxygen as tolerated to maintain titration goal. Luz Higuera, ENERGY DERIVATIVES TRADER * Utilization Review Notes - Damaris Cano RN - 01/26/2025 12:50 PM EDT ADMIT REVIEW FROM [facility] TO [facility] 3S TELEMETRY FOR STROKE LIKE SYMPTOMS,EXPRESSIVE APHASIA + OBS ORDER ON CHART ADMIT 01/25/25 TELEMETRY, NEUROLOGY -PT CONSULT, ELIQUIS PO BID, INSULIN PROTOCOL, NEBS PER RESP TX, NEURO CHECKS Q4 HRS PER H & P: Stroke-like symptoms Expressive aphasia Likely TIA given near complete resolution of symptoms CT head, CTA head/neck negative for any acute abnormalities MRI brain here at T showed no evidence of acute stroke 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 documented in this encounter Plan of Treatment Not on file documented as of this encounter Procedures Procedure Name Priority Date/Time Associated Diagnosis Comments EXTRA TUBES PANEL Routine 01/27/2025 8:46 AM EDT EXTRA LAVENDER Routine 01/27/2025 8:46 AM EDT BASIC METABOLIC PANEL CRISTIANE 01/27/2025 8:46 AM EDT GLUCOSE METER POC Routine 01/27/2025 8:45 AM EDT ECG AND WAVEFORMS - TELEMETRY Routine 01/27/2025 7:49 AM EDT GLUCOSE METER POC Routine 01/26/2025 9:47 PM EDT ECG AND WAVEFORMS - TELEMETRY Routine 01/26/2025 7:03 PM EDT GLUCOSE METER POC Routine 01/26/2025 4:53 PM EDT GLUCOSE METER POC Routine 01/26/2025 12:18 PM EDT URINALYSIS REFLEX Routine 01/26/2025 11:39 AM EDT UA W/REFLEX TO CULTURE Routine 01/26/2025 11:39 AM EDT EXTRA SHORT URINE CX Routine 01/26/2025 11:39 AM EDT URINE CULTURE (NO STAIN) Routine 01/26/2025 11:39 AM EDT EEG AWAKE AND DROWSY Routine 01/26/2025 11:20 AM EDT GLUCOSE METER POC Routine 01/26/2025 8:38 AM EDT EC ECHOCARDIOGRAM COMPLETE W DOPPLER AND COLOR FLOW MAPPING Routine 01/26/2025 7:53 AM EDT ECG AND WAVEFORMS - TELEMETRY Routine 01/26/2025 7:00 AM EDT GLUCOSE METER POC Routine 01/25/2025 11:17 PM EDT MRI BRAIN WO CONTRAST CRISTIANE 01/25/2025 10:16 PM EDT CBC WITH DIFF Early AM 01/25/2025 9:00 PM EDT LIPID PANEL REFLEX Early AM 01/25/2025 8:59 PM EDT PT / INR Routine 01/25/2025 8:59 PM EDT HEMOGLOBIN A1C Routine 01/25/2025 8:59 PM EDT HEPATIC FUNCTION PANEL Routine 01/25/2025 8:59 PM EDT BASIC METABOLIC PANEL Routine 01/25/2025 8:59 PM EDT EK EKG 12 LEAD STAT 01/25/2025 8:48 PM EDT IP CONSULT TO NEUROLOGY Routine 01/25/2025 8:48 PM EDT Procedure Note - Juan Sneed MD - 01/26/2025 8:18 AM EDTThis note is in progress. Neurology Consult Note Admit date: 01/25/2025 Current Length of stay: 1 day(s) Chief Complaint: Transient neurological spell Requesting Provider: Dr. Jesse Merino History of Presenting Illness This is a 69 y.o. female with history of stroke (affected the right sidewith good recovery, 3 years ago), A fib (on Eliquis), T2DM, HLD, CAD, andsleep apnea who I am seeing in neurologic consultation for evaluation ofstroke. Ms. Arenas presented to the ED at [facility] on 01/25/25 due toconcerns for speech difficulties. She reported eating lunch around 11:30am when she experienced sudden onset speech difficulties, headache, and feeling like she was dying. She described difficulty with thinking ofwhat she wanted to say and difficulty with getting words out. She reportedher headache being all over the top of her head. She also reported mildright upper extremity weakness but stated she could still use her arm. CThead and CTA H/N were conducted at the outside hospital with no acutefindings, and she was then transferred to [place]. She reportedoverall subjective worsening of her symptoms throughout the day, withresolution shortly after she was transferred to [facility]. Today, shefeels back to her baseline. She reports compliance with eliquis, aspirin, crestor, and all othermedications. She had presented to the [facility] in 2022 with right-sidedweakness and at the time, suspicion for stroke was low per documentationreview. There was some concern for functional etiology. 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 ROS: Relevant review of system was completed and was negative except asmentioned in HPI Past Medical/ Surgical History Past Medical History: Diagnosis Date A-fib (HCC) Asthma Atrial fibrillation (HCC) Bladder infection Diabetes mellitus (HCC) pt states she is no longer diabetic 10/11/21 Hyperlipidemia Kidney failure Kidney infection Obesity Pulmonary embolism (HCC) Sleep apnea Stroke (HCC) Thyroid disease Tuberculosis Active Hospital Problems Diagnosis *Stroke-like symptoms Expressive aphasia Chronic a-fib (HCC) Coronary artery disease involving confederated salish coronary artery of confederated salish heartwithout angina pectoris Type 2 diabetes mellitus (HCC) Mild intermittent asthma without complication Hypothyroid Pure hypercholesterolemia Past Surgical History: Procedure Laterality Date CHOLECYSTECTOMY, LAPAROSCOPIC N/A 2021 LAPAROSCOPIC CHOLECYSTECTOMY WITH INTRAOPERATIVE CHOLANGIOGRAM, COMMONBILE DUCT EXPLORATION ; Surgeon: Portillo Kerr DO; Location: [facility]; Service: General ERCP N/A 10/11/2021 ENDOSCOPIC RETROGRADE CHOLANGIOPANCREOGRAPHY with stent placement;Surgeon: Nathaly Viveros MD; Location: [facility];Service: Endoscopy ERCP N/A 10/15/2021 ENDOSCOPIC RETROGRADE CHOLANGIOPANCREOGRAPHY with sphincterotomy andstent exchange; Surgeon: Nathaly Viveros MD; [facility]; Service: Endoscopy HIP SURGERY Bilateral KNEE SURGERY Right MEDIASTINOSCOPY Medications No current facility-administered medications on file prior to encounter. Current Outpatient Medications on File Prior to Encounter Medication Sig Dispense Refill albuterol (PROVENTIL HFA;VENTOLIN HFA) 90 mcg/actuation Inhl HFA AerosolInhaler Inhale 1 Puff into the lungs as needed. albuterol-ipratropium (DUO-NEB) 0.5 mg-3 mg(2.5 mg base)/3 mL InhlSolution for Nebulization Take 3 mL by nebulization as needed. apixaban (ELIQUIS) 5 mg Oral Tablet Take 5 mg by mouth 2 times daily. Blood Sugar Diagnostic Misc Strip by Misc.(Non-Drug; Combo Route) route 2times daily. Blood-Glucose Meter (ACCU-CHEK GUIDE GLUCOSE METER) Misc Misc byMisc.(Non-Drug; Combo Route) route once. qxdtcubnxk-sdjnibtc-vonzpgbnuc (BREZTRI AEROSPHERE) 160-9-4.8mcg/actuation Inhl HFA Aerosol Inhaler Inhale 1 Puff into the lungs daily. dilTIAZem (CARDIZEM) 30 mg Oral Tablet Take 30 mg by mouth 2 times daily. fUROsemide (LASIX) 20 mg Oral Tablet Take 20 mg by mouth daily as needed. Lancets Misc Misc by Mis.(Non-Drug; Combo Route) route 2 times daily. LEVOthyroxine (SYNTHROID) 88 mcg Oral Tablet Take 88 mcg by mouth everymorning. montelukast (SINGULAIR) 10 mg Oral Tablet Take 10 mg by mouth daily. pantoprazole (PROTONIX) 40 mg Oral Tablet, Delayed Release (E.C.) Take 1Tablet by mouth daily. rosuvastatin (CRESTOR) 5 mg Oral Tablet Take 5 mg by mouth daily. VITAMIN D3 10 mcg (400 unit) Oral Capsule Take 2 Capsules by mouth daily. aspirin 81 mg Oral Capsule Take 1 Capsule by mouth daily. tirzepatide, weight loss, (ZEPBOUND) 2.5 mg/0.5 mL SubQ Pen InjectorSubcutaneous (Inject under the skin) 2.5 mg once a week. (Patient nottaking: Reported on 01/25/2025) 2 mL 3 Scheduled Meds: apixaban 5 mg Oral BID aspirin 81 mg Oral Daily budesonide-formoteroL 2 Puff Inhalation RESP BID cholecalciferol (vitamin D3) 800 Units Oral Daily dilTIAZem 30 mg Oral 2 times per day Insulin Calculator (AMMONIA REFRIGERATION TECHNICIAN) - FSBS (Correction Only) Input 1 EachMISCELLANEOUS QID MEALTIME/HS And insulin aspart (NovoLOG) - Correction - Calculator 0-40 UnitsSubcutaneous QID MEALTIME/HS LEVOthyroxine 88 mcg Oral QAM montelukast 10 mg Oral Daily pantoprazole 40 mg Oral Daily rosuvastatin 5 mg Oral Daily Continuous Infusions: PRN Meds:.acetaminophen, budesonide-formoteroL AND albuterol,dextrose, glucagon AND sterile water, melatonin, ondansetron ORondansetron Allergies Allergen Reactions Venom-Honey Bee Anaphylaxis Latex Other (See Comments) Not specified Penicillins Family History Family History Problem Relation Age of Onset Diabetes Mother Heart Attack Mother Diabetes Sister Diabetes Brother Social History Social History Tobacco Use Smoking status: Never Smokeless tobacco: Never Substance Use Topics Alcohol use: No Physical Examination: Reviewed vitals trend over past 24 hours NEUROLOGICAL EXAMINATION: MENTAL STATUS: Alert and oriented to person place and time, follows 1 and2 step commands. CORTEX: Speech fluent and without anomia or paraphasic errors. Nodifficulty with naming or repetition. No neglect. Affect normal. CRANIAL NERVES: Visual perales intact. Pupils 4mm, equal and reactive tolight bilaterally. EOMI. Face symmetric. Sensation intact. Palate elevatesequally bilaterally, tongue midline. MOTOR: Strength: RUE: 5/5, RLE: 5/5, LUE: 5/5, LLE: 4+/5 chronically eversince retroperitoneal hematoma. Tone is normal, bulk is symmetric. SENSORY: Intact to light touch. REFLEXES: 2+ throughout BL UE, absent patellars bilaterally. No Jiang's,no clonus, downgoing toes COORDINATION: Finger to Nose testing is normal. GAIT: walks with walker, antalgic gait (keeps left leg straight due tofemoral nerve issue per patient) Results: Personally reviewed the following imaging studies CT head without contrast - no acute intracranial abnormalities CTA H/N - no LVO or significant stenosis MRI brain without contrast - no acute intracranial abnormality LDL 65 Impression and Plan Ms. Arenas is a 69 year old female with a PMHx of previous strokeaffecting her right side with no baseline weakness (3 years ago), A fib(on Eliquis), T2DM, HLD, CAD, and sleep apnea who presented with acuteonset aphasia, RUE weakness, and headache with resolution of symptomswithin 24 hours. Acute onset expressive aphasia with RUE weakness and central headache History of previous stroke A-fib Differentials include recrudescence of prior stroke symptoms in thesetting of hypertensive urgency, TIA. Does need further evaluation forpartial seizures. -Continue aspirin and Eliquis for secondary stroke prophylaxis. Noevidence of any benefit from switching either antiplatelet agent oranticoagulant - Continue Crestor at home dose. LDL at target - Blood pressure goal normotension - EEG 4. 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 No further workup required from thestandpoint. Discussed with the patient and she is in agreement. Thank you for the opportunity to participate in the care of Juani Miller. Please do not hesitate to call with further questions orconcerns. Natalya See, Medical Student Neurology I saw and evaluated this patient with the medical student. I personallyobtained the history, performed the physical exam and formulated theassessment and plan in the documentation has been modified to reflectaccuracy. TIFFANY Riddle Neurology Neurology Disposition- Will Sign off?: No Anticipated discharge timeframe?: Today Discharge when / if?: EEG completion. This note was generated using voice recognition technology. It has beenreviewed by the undersigned, however, may still contain unintendederrors. ADMIT Routine 01/25/2025 8:48 PM EDT ECG AND WAVEFORMS - TELEMETRY Routine 01/25/2025 8:22 PM EDT documented in this encounter Results * EXTRA LAVENDER (01/27/2025 8:46 AM EDT) Blood VENOUS BLOOD / Unknown Venipuncture / Unknown 01/27/2025 8:46 AM EDT 01/27/2025 10:38 AM EDT us Juan Sneed MD HEMATOLOGY ORDERABLES Final R esult [facility] [address] [place] [address] * (ABNORMAL) BASIC METABOLIC PANEL (01/27/2025 8:46 AM EDT) Sodium 140 136 - 145 mmol/L 01/27/2025 10:06 AM EDT [facility] Potassium 4.2 3.5 - 5.0 mmol/L 01/27/2025 10:06 AM EDT [facility] Chloride 106 98 - 107 mmol/L 01/27/2025 10:06 AM EDT [facility] Total CO2 21(L) 22 - 29 mmol/L 01/27/2025 10:06 AM EDT [facility] Anion Gap 13 7 - 16 mmol/L 01/27/2025 10:06 AM EDT [facility] Calcium 9.5 8.8 - 10.4 mg/dL 01/27/2025 10:06 AM EDT [facility] Glucose Lvl 128(H) 70 - 99 mg/dL 01/27/2025 10:06 AM EDT [facility] BUN 21 8 - 23 mg/dL 01/27/2025 10:06 AM EDT [facility] Creatinine 1.20 0.51 - 1.30 mg/dL 01/27/2025 10:06 AM EDT [facility] eGFR (CKD-EPIcr 2020) 48(L) >=60 mL/min/1.7 3 m2 01/27/2025 10:06 AM EDT [facility] Comment:Estimated GFR was ca lculated using the CKD-EPIcr (2020) equation refit without race. The equation is recommended by the National Kidney Foundation - [place] [employer] of Nephrology Task Force. Blood VENOUS BLOOD / Unknown Venipuncture / Unknown 01/27/2025 8:46 AM EDT 01/27/2025 9:41 AM EDT us Jone Watkins MD CHEMISTRY ORDERABLES Final Res ult [facility] [address] [place] [address] * (ABNORMAL) GLUCOSE METER POC (01/27/2025 8:45 AM EDT) Glucose Meter POC 141(H) 70 - 100 mg/dL 01/27/2025 8:46 AM EDT [facility] Sample Type Capillary 01/27/2025 8:46 AM EDT [facility] Patient Status Non-Critical Patient 01/27/2025 8:46 AM EDT [facility] Blood BLOOD SPECIMEN / Unknown 01/27/2025 8:45 AM EDT 01/27/2025 8:46 AM EDT Edenilson Hirsch MD POINT OF CARE TEST ORDERABLES Fi nal Result Performing Organization Address [facility] de Phone Number [facility] [address] [place] [address] * ECG AND WAVEFORMS - TELEMETRY (01/27/2025 7:49 AM EDT) ECG INTERPRET Sinus Bradycardia [facility] 01/27/2025 7:49 AM EDT Narrative [facility] - 01/27/2025 8:00 AM EDT ROUTINE/AK WA 0.19 QRS 0.08 RR 1.05 QT 0.43 QTc 0.42 See Clinical Report link for waveform capture us Unknown Provider POINT OF CARE CARDIOLOGY Final Result Performing Organization Address [facility] de Phone Number [facility] [address] [place] [address] * (ABNORMAL) GLUCOSE METER POC (01/26/2025 9:47 PM EDT) Glucose Meter POC 168(H) 70 - 100 mg/dL 01/26/2025 9:49 PM EDT [facility] Sample Type Capillary 01/26/2025 9:49 PM EDT [facility] Patient Status Non-Critical Patient 01/26/2025 9:49 PM EDT [facility] Blood BLOOD SPECIMEN / Unknown 01/26/2025 9:47 PM EDT 01/26/2025 9:49 PM EDT Edenilson Hirsch MD POINT OF CARE TEST ORDERABLES Fi nal Result Performing Organization Address [facility] de Phone Number [facility] [address] [place] [address] * ECG AND WAVEFORMS - TELEMETRY (01/26/2025 7:03 PM EDT) ECG INTERPRET NSR [facility] 01/26/2025 7:03 PM EDT Narrative [facility] - 01/26/2025 7:36 PM EDT ROUTINE/MS WA 0.16 QRS 0.10 RR 0.67 QT 0.37 QTc 0.45 See Clinical Report link for waveform capture us Unknown Provider POINT OF CARE CARDIOLOGY Final Result Performing Organization Address [facility]/ZIP Co de Phone Number [facility] [address] [place], [place] [id number] * (ABNORMAL) GLUCOSE METER POC (01/26/2025 4:53 PM EDT) Glucose Meter POC 213(H) 70 - 100 mg/dL 01/26/2025 4:55 PM EDT [facility] Sample Type Capillary 01/26/2025 4:55 PM EDT [facility] Patient Status Non-Critical Patient 01/26/2025 4:55 PM EDT [facility] Blood BLOOD SPECIMEN / Unknown 01/26/2025 4:53 PM EDT 01/26/2025 4:55 PM EDT us Edenilson Hirsch MD POINT OF CARE TEST ORDERABLES Fi nal Result Performing Organization Address City/[facility]/ZIP Co de Phone Number [facility] [address] [place] [address] * (ABNORMAL) GLUCOSE METER POC (01/26/2025 12:18 PM EDT) Glucose Meter POC 146(H) 70 - 100 mg/dL 01/26/2025 12:20 PM EDT [facility] Sample Type Capillary 01/26/2025 12:20 PM EDT [facility] Patient Status Non-Critical Patient 01/26/2025 12:20 PM EDT [facility] Blood BLOOD SPECIMEN / Unknown 01/26/2025 12:18 PM EDT 01/26/2025 12:20 PM EDT Edenilson Hirsch MD POINT OF CARE TEST ORDERABLES Fi nal Result [facility] [address] [place] [address] [place] [address] * (ABNORMAL) URINE CULTURE (NO STAIN) (01/26/2025 11:39 AM EDT) Culture Positive Growth(A) 01/28/2025 10:25 AM EDT [facility], [facility] Culture >100,000 CFU/mL Klebsiella pneumoniae SUSCEPTIBI LITY RESULT 01/28/2025 10:25 AM EDT [facility], [facility] Urine STRUCTURE OF URINARY TRACT PROPER / Unknown 01/26/2025 11:39 AM EDT 01/26/2025 1:48 PM EDT Narrative Organism Antibiotic Method Susceptibility Klebsiella pneumoniae Amikacin SUSCEPTIBILITY RESULT Klebsiella pneumoniae Amoxicillin/Clavulanat e SUSCEPTIBILITY RESULT <=8/4 ug/mL: Susceptible Klebsiella pneumoniae Ampicillin SUSCEPTIBILITY RESULT Klebsiella pneumoniae Ampicillin/Sulbactam SUSCEPTIBILITY RESULT 8/4 ug/mL: Susceptible Klebsiella pneumoniae Aztreonam SUSCEPTIBILITY RESULT <=4 ug/mL: Susceptible Klebsiella pneumoniae Cefazolin SUSCEPTIBILITY RESULT <=2 ug/mL: Susceptible Klebsiella pneumoniae Cefepime SUSCEPTIBILITY RESULT Klebsiella pneumoniae Cefotaxime SUSCEPTIBILITY RESULT Klebsiella pneumoniae Cefoxitin SUSCEPTIBILITY RESULT <=8 ug/mL: Susceptible Klebsiella pneumoniae Ceftazidime SUSCEPTIBILITY RESULT Klebsiella pneumoniae Ceftazidime/Avibactam SUSCEPTIBILITY RESULT Klebsiella pneumoniae Ceftolozane/Tazobactam SUSCEPTIBILITY RESULT Klebsiella pneumoniae Ceftriaxone SUSCEPTIBILITY RESULT Klebsiella pneumoniae Cefuroxime SUSCEPTIBILITY RESULT Klebsiella pneumoniae Ciprofloxacin SUSCEPTIBILITY RESULT <=0.25 ug/mL: Susceptible Klebsiella pneumoniae Ertapenem SUSCEPTIBILITY RESULT <=0.5 ug/mL: Susceptible Klebsiella pneumoniae Gentamicin SUSCEPTIBILITY RESULT <=2 ug/mL: Susceptible Klebsiella pneumoniae Imipenem SUSCEPTIBILITY RESULT <=1 ug/mL: Susceptible Klebsiella pneumoniae Levofloxacin SUSCEPTIBILITY RESULT <=0.5 ug/mL: Susceptible Klebsiella pneumoniae Meropenem SUSCEPTIBILITY RESULT <=1 ug/mL: Susceptible Klebsiella pneumoniae Meropenem/Vaborbactam SUSCEPTIBILITY RESULT Klebsiella pneumoniae Minocycline SUSCEPTIBILITY RESULT Klebsiella pneumoniae Moxifloxacin SUSCEPTIBILITY RESULT Klebsiella pneumoniae Nitrofurantoin SUSCEPTIBILITY RESULT >64 ug/mL: Resistant Klebsiella pneumoniae Piperacillin/Tazobacta m SUSCEPTIBILITY RESULT <=8 ug/mL: Susceptible Klebsiella pneumoniae Tetracycline SUSCEPTIBILITY RESULT <=4 ug/mL: Susceptible Klebsiella pneumoniae Tigecycline SUSCEPTIBILITY RESULT Klebsiella pneumoniae Tobramycin SUSCEPTIBILITY RESULT <=2 ug/mL: Susceptible Klebsiella pneumoniae Trimethoprim/Sulfameth oxazole SUSCEPTIBILITY RESULT <=0.5/9.5 ug/mL: Susceptible Edenilson Hirsch MD MICROBIOLOGY - GENERAL ORDERABLE S Final Result Performing Organization Address [facility]/ZIP Co de Phone Number [facility], [facility] [address] [facility], [place] [address] * EXTRA SHORT URINE CX (01/26/2025 11:39 AM EDT) Urine STRUCTURE OF URINARY TRACT PROPER / Unknown 01/26/2025 11:39 AM EDT 01/26/2025 1:40 PM EDT Edenilson Hirsch MD MICROBIOLOGY - GENERAL ORDERABLE S Final Result Performing Organization Address [facility] de Phone Number [address] [address] * (ABNORMAL) URINALYSIS REFLEX (01/26/2025 11:39 AM EDT) UA Color Yellow 01/26/2025 1:48 PM EDT [facility] UA Appear Slightly Cloudy(A) Clear 01/26/2025 1:48 PM EDT [facility] UA Glucose Negative Negative mg/dL 01/26/2025 1:48 PM EDT [facility] UA Ketones Negative Negative mg/dL 01/26/2025 1:48 PM EDT [facility] UA Blood Negative Negative 01/26/2025 1:48 PM EDT [facility] [facility] pH 6.0 5.0 - 8.0 pH 01/26/2025 1:48 PM EDT [facility] UA Protein Negative Negative mg/dL 01/26/2025 1:48 PM EDT [facility] UA Urobilinogen 0.2 <=1 mg/dL 1:48 PM EDT [facility] UA Bili Negative Negative 01/26/2025 1:48 PM EDT [facility] UA Nitrite Negative Negative 01/26/2025 1:48 PM EDT [facility] UA Leuk Est Trace(A) Negative 01/26/2025 1:48 PM EDT [facility] UA Spec Grav 1.025 1.001 - 1.035 no units 01/26/2025 1:48 PM EDT [facility] Comment:Reference range yara d for random specimens only. UA WBC 5(H) 0 - 4 /HPF 01/26/2025 1:48 PM EDT [facility] UA Squam Epi Rare /LPF 01/26/2025 1:48 PM EDT [facility] UA Bacteria 4+(A) Negative /HPF 01/26/2025 1:48 PM EDT [facility] Urine STRUCTURE OF URINARY TRACT PROPER / Unknown 01/26/2025 11:39 AM EDT 01/26/2025 1:40 PM EDT Edenilson Hirsch MD URINE ORDERABLES Final Result Performing Organization Address City/State/[facility] Co de Phone Number [place] [phone] * EEG AWAKE AND DROWSY (01/26/2025 11:20 AM EDT) Anatomical Region Laterality Modality Electroencephalo graphy Impressions 01/26/2025 12:14 PM EDT : This EEG was normal in wakefulness and drowsiness. There were no epileptiform abnormalities or seizures. Juan Sneed MD Neurology Narrative 01/26/2025 12:14 PM EDT [facility] DEPARTMENT OF NEUROLOGY [facility] Patient: Juani Arenas Age: 69 y.o. Date of Recordin01/26/2025 Referring Provider: Juan Sneed MD History: Juani Arenas is a 69 y.o. F with history of episodes of transient neurological spells. This study was performed in order to monitor for focal or epileptiform abnormalities and assist in determination of the nature of the patient's clinical events. Juani Arenas is not on antiseizure medications. Technical Description: This is a 21 channel digital EEG recording with time-locked video. Electrodes were placed in accordance with the 10-20 International System of Electrode Placement. Single lead EKG monitoring was included. Background During wakefulness, a posterior dominant rhythm of 9 Hz was seen. Beta activity was unremarkable. During drowsiness, there were bursts of diffuse slowing and waxing and waning of the posterior dominant rhythm. Sleep was not observed. Activating procedures No abnormalities were activated by photic stimulation. Epileptiform discharges: None Seizures: None The single lead EKG channel revealed a regular rhythm. Juan Sneed MD IMG EEG ORDERABLES Final Resu lt * (ABNORMAL) GLUCOSE METER POC (01/26/2025 8:38 AM EDT) [facility] Glucose Meter POC 127(H) 70 - 100 mg/dL 01/26/2025 8:39 AM EDT [facility] Sample Type Capillary 01/26/2025 8:39 AM EDT [facility] Patient Status Non-Critical Patient 01/26/2025 8:39 AM EDT [facility] [place] [facility] Blood BLOOD SPECIMEN / Unknown 01/26/2025 8:38 AM EDT 01/26/2025 8:39 AM EDT Edenilson Hirsch MD POINT OF CARE TEST ORDERABLES Fi nal Result [facility] [address] [place] [address] * EC ECHOCARDIOGRAM COMPLETE W DOPPLER AND COLOR FLOW MAPPING (01/26/2025 7:53 AM EDT) [facility] AORTIC STENOSIS no PYRAMIS MITRAL REGURGITATION trace PYRAMIS Ejection Fraction 60-65% PYRAMIS LV DIASTOLIC PLAX 4.84 cm PYRAMIS Anatomical Region Laterality Modality Electrocardiogra phy 01/26/2025 7:28 AM EDT Impressions 01/26/2025 4:25 PM EDT Conclusions * Left ventricular function is normal with an estimated ejection fraction of 60-65%. * Left ventricular chamber dimension is normal. * There is mildly increased left ventricular wall thickness. * Left ventricular segmental wall motion is normal. * The left ventricular diastolic function is consistent with stage I diastolic dysfunction (normal left atrial pressure). * Right ventricular systolic function is normal, with a tricuspid annular plane systolic excursion of 3.0 cm and a RV s' of 14.3 cm/s. Narrative Procedure Note Rikki Calderon MD - 01/26/2025 IMPRESSION Conclusions * Left ventricular function is normal with an estimated ejectionfraction of 60-65%. * Left ventricular chamber dimension is normal. * There is mildly increased left ventricular wall thickness. * Left ventricular segmental wall motion is normal. * The left ventricular diastolic function is consistent with stage I diastolic dysfunction (normal left atrial pressure). * Right ventricular systolic function is normal, with a tricuspidannular plane systolic excursion of 3.0 cm and a RV s' of 14.3 cm/s. us Edenilson Hirsch MD IMG ECHO ORDERABLES Final Result * ECG AND WAVEFORMS - TELEMETRY (01/26/2025 7:00 AM EDT) [facility] ECG INTERPRET Sinus Bradycardia [facility] 01/26/2025 7:00 AM EDT Narrative [facility] - 01/26/2025 8:45 AM EDT (DT)ROUTINE WA 0.19 QRS 0.10 RR 1.06 QT 0.50 QTc 0.48 See Clinical Report link for waveform capture us Unknown Provider POINT OF CARE CARDIOLOGY Final Result [facility] [address] [place] [address] * (ABNORMAL) GLUCOSE METER POC (01/25/2025 11:17 PM EDT) [facility] Glucose Meter POC 124(H) 70 - 100 mg/dL 01/25/2025 11:18 PM EDT [facility] Sample Type Capillary 01/25/2025 11:18 PM EDT [facility] Patient Status Non-Critical Patient 01/25/2025 11:18 PM EDT [facility] Blood BLOOD SPECIMEN / Unknown 01/25/2025 11:17 PM EDT 01/25/2025 11:18 PM EDT us Edenilson Hirsch MD POINT OF CARE TEST ORDERABLES Fi nal Result [facility] [address] [facility] [place] [address] * MRI BRAIN WO CONTRAST (01/25/2025 10:16 PM EDT) Anatomical Region Laterality Modality Head Magnetic Resonan ce 01/25/2025 10:1 6 PM EDT Impressions 01/25/2025 10:26 PM EDT * No acute intracranial abnormality. - Note: Radiology results need to be interpreted within a comprehensive clinical context. If you have questions about the radiology report, please contact the office of the ordering clinician. Narrative 01/25/2025 10:26 PM EDT MRI BRAIN WITHOUT CONTRAST, 01/25/2025 10:16 PM CLINICAL HISTORY: -stroke. COMPARISON: None. PROCEDURE COMMENTS: Multiplanar multiecho MR imaging of the brain including standard spin echo and diffusion sequences. FINDINGS: Moderate motion degradation of the examination is noted. Background involutional change including white matter hyperintensities typical of chronic microvascular ischemic disease. No acute stroke, hemorrhage, or mass lesion identified. Included portions of the paranasal sinuses, mastoids, and orbits unremarkable. Moderate degenerative changes of the cervical spine are partially imaged. Procedure Note Jone Sargent MD - 01/25/2025 MRI BRAIN WITHOUT CONTRAST, 01/25/2025 10:16 PM CLINICAL HISTORY: -stroke. COMPARISON: None. PROCEDURE COMMENTS: Multiplanar multiecho MR imaging of the brainincluding standard spin echo and diffusion sequences. FINDINGS: Moderate motion degradation of the examination is noted. Background involutional change including white matter hyperintensitiestypical of chronic microvascular ischemic disease. No acute stroke, hemorrhage, or mass lesion identified. Included portions of the paranasal sinuses, mastoids, and orbitsunremarkable. Moderate degenerative changes of the cervical spine are partiallyimaged. IMPRESSION: * No acute intracranial abnormality. - Note: Radiology results need to be interpreted within a comprehensiveclinical context. If you have questions about the radiology report, please contactthe office of the ordering clinician. Edenilson Hirsch MD [facility] MRI ORDERABLES Final Result * CBC WITH DIFF (01/25/2025 9:00 PM EDT) WBC 7.8 3.7 - 10.3 x10(3)/mcL 01/25/2025 9:10 PM EDT [facility] RBC 4.45 3.90 - 5.20 x10(6)/mcL 01/25/2025 9:10 PM EDT [facility] Hgb 13.5 11.2 - 15.7 g/dL 01/25/2025 9:10 PM EDT [facility] Hct 38.8 34.0 - 45.0 % 01/25/2025 9:10 PM EDT [facility] MCV 87.2 80.0 - 100.0 fL 01/25/2025 9:10 PM EDT [facility] MCH 30.3 26.0 - 34.0 pg 01/25/2025 9:10 PM EDT [facility] MCHC 34.8 30.7 - 35.5 g/dL 01/25/2025 9:10 PM EDT [facility] RDW 12.6 <=14.9 % 01/25/2025 9:10 PM EDT [facility] Platelet 193 155 - 369 x10(3)/mcL 01/25/2025 9:10 PM EDT [facility] MPV 9.4 8.8 - 12.5 fL 01/25/2025 9:10 PM EDT [facility] Neut Percent 53.9 % 01/25/2025 9:10 PM EDT [facility] Comment:Neutrophils equals s egs plus bands Imm Gran% 0.4 % 01/25/2025 9:10 PM EDT [facility] Comment:Automated count of m etamyelocytes, myelocytes and promyelocytes. Lymph Percent 35.7 % 01/25/2025 9:10 PM EDT [facility] Percent 8.7 % 01/25/2025 9:10 PM EDT [facility] Eos Percent 0.9 % 01/25/2025 9:10 PM EDT [facility] Baso Percent 0.4 % 01/25/2025 9:10 PM EDT [facility] Neut # 4.2 1.6 - 6.1 x10(3)/mcL 01/25/2025 9:10 PM EDT [facility] Comment:Neutrophils equals s egs plus bands IMMGRAN# 0.0 0.0 - 0.1 x10(3)/mcL 01/25/2025 9:10 PM EDT [facility] Comment:Automated count of m etamyelocytes, myelocytes and promyelocytes. An absolute IG <0.1 is reported as 0.0. Lymph # 2.8 1.2 - 3.9 x10(3)/mcL 01/25/2025 9:10 PM EDT [facility] [place] # 0.7 0.3 - 0.9 x10(3)/mcL 01/25/2025 9:10 PM EDT [facility] Eos# 0.1 0.0 - 0.5 x10(3)/mcL 01/25/2025 9:10 PM EDT [facility] Baso # 0.0 0.0 - 0.1 x10(3)/mcL 01/25/2025 9:10 PM EDT [facility] Blood VENOUS BLOOD / Unknown Venipuncture / Unknown 01/25/2025 9:00 PM EDT 01/25/2025 9:08 PM EDT us Edenilson Hirsch MD HEMATOLOGY ORDERABLES Final Resu lt [facility] [address] [place] [address] * LIPID PANEL REFLEX (01/25/2025 8:59 PM EDT) Cholesterol 128 <200 mg/dL 01/26/2025 9:16 AM EDT [facility] Comment: < 200 Desirable 200 - 239 Borderline High >= 240 High Triglyceride 130 <150 mg/dL 01/26/2025 9:16 AM EDT [facility] Comment: < 150 Normal 150 - 199 Borderline High 200 - 499 High >= 500 Very High HDL 44 >=40 mg/dL 01/26/2025 9:16 AM EDT [facility] Comment: > 60 Optimal 40 - 60 Acceptable < 40 Low LDL Calculated 61 <100 mg/dL 01/26/2025 9:16 AM EDT [facility] Comment: < 100 Optimal 100 - 129 Near or above optimal 130 - 159 Borderline High 160 - 189 High >= 190 Very High The National Institutes of Health (NIH) equation is used for all lipid panels that report calculated LDL (LDL-C). Non-HDL-C Calculated 84 <=129 mg/dL 01/26/2025 9:16 AM EDT [facility] Comment: <130 Desirable 130-159 Above Desirable 160-189 Borderline High 190-219 High >= 220 Very High Fasting Specimen? 025 9:16 AM EDT [facility] Blood VENOUS BLOOD / Unknown Venipuncture / Unknown 01/25/2025 8:59 PM EDT 01/25/2025 9:08 PM EDT us Jesse Merino MD CHEMISTRY ORDERABLES Jessie l Result [facility] [address] [facility] , [place] [place] [address] * HEPATIC FUNCTION PANEL (01/25/2025 8:59 PM EDT) Total Protein 6.7 6.4 - 8.3 gm/dL 01/25/2025 9:26 PM EDT [facility] Albumin 4.3 3.2 - 4.6 gm/dL 01/25/2025 9:26 PM EDT [facility] Bili Direct 0.3 0.0 - 0.3 mg/dL 01/25/2025 9:26 PM EDT [facility] Bili Total 0.7 0.2 - 1.3 mg/dL 01/25/2025 9:26 PM EDT [facility] AST 27 <=40 U/L 01/25/2025 9:26 PM EDT [facility] ALT 28 <=41 U/L 01/25/2025 9:26 PM EDT [facility] Alk Phos 89 36 - 123 U/L 01/25/2025 9:26 PM EDT [facility] Blood VENOUS BLOOD / Unknown Venipuncture / Unknown 01/25/2025 8:59 PM EDT 01/25/2025 9:08 PM EDT Edenilson Hirsch MD CHEMISTRY ORDERABLES Final Resul t [facility] [address] [place] [address] * (ABNORMAL) HEMOGLOBIN A1C (01/25/2025 8:59 PM EDT) Hgb A1C 6.1(H) 4.2 - 5.6 % 01/26/2025 2:18 AM EDT [facility]REF[facility]ED [facility] Est. Avg Glucose 128 mg/dL 01/26/2025 2:18 AM EDT [facility] Blood VENOUS BLOOD / Unknown Venipuncture / Unknown 01/25/2025 8:59 PM EDT 01/25/2025 9:08 PM EDT Narrative [facility] - 01/26/2025 2:18 AM EDT REFERENCE RANGE: Normal: 4.0-5.6% Pre-diabetes: 5.7-6.4% Provisional diagnosis of diabetes: >6.4% Hgb F>10% and anything which shortens red cell survival, such as hemolytic anemia, or unstable hemoglobin variants such as HbSS, HbSC, or HbCC, will lower the HbA1c value associated with a given level of glycemic control. Edenilson Hirsch MD CHEMISTRY ORDERABLES Final Resul t Performing Organization Address City/[facility]/ZIP Co de Phone Number [facility] [facility] [address] [facility], [place] [address] * (ABNORMAL) PT / INR (01/25/2025 8:59 PM EDT) PT 16.3(H) 10.5 - 13.6 second(s) 01/25/2025 9:18 PM EDT [facility] INR 1.41(H) 0.91 - 1.18 (ratio) 01/25/2025 9:18 PM EDT [facility] Comment: Level of Therapy Indications Target INR Range Standard Dose Treatment and prophylaxis of venous 2.0 - 3.0 thrombosis, pulmonary embolism High Dose High risk patients with mechanical 2.5 - 3.5 heart valves Blood VENOUS BLOOD / Unknown Venipuncture / Unknown 01/25/2025 8:59 PM EDT 01/25/2025 9:08 PM EDT Edenilson Hirsch MD HEMATOLOGY ORDERABLES Final Resu lt Performing Organization Address [facility] de Phone Number [facility] [address] [place] [phone] * (ABNORMAL) BASIC METABOLIC PANEL (01/25/2025 8:59 PM EDT) Sodium 139 136 - 145 mmol/L 01/25/2025 9:26 PM EDT [facility] Potassium 3.7 3.5 - 5.0 mmol/L 01/25/2025 9:26 PM EDT [facility] Chloride 107 98 - 107 mmol/L 01/25/2025 9:26 PM EDT [facility] Total CO2 19(L) 22 - 29 mmol/L 01/25/2025 9:26 PM EDT [facility] Anion Gap 13 7 - 16 mmol/L 01/25/2025 9:26 PM EDT [facility] Calcium 9.3 8.8 - 10.4 mg/dL 01/25/2025 9:26 PM EDT [facility] Glucose Lvl 136(H) 70 - 99 mg/dL 01/25/2025 9:26 PM EDT [facility] BUN 20 8 - 23 mg/dL 01/25/2025 9:26 PM EDT [facility] Creatinine 1.22 0.51 - 1.30 mg/dL 01/25/2025 9:26 PM EDT [facility] eGFR (CKD-EPIcr 2020) 48(L) >=60 mL/min/1.7 3 m2 01/25/2025 9:26 PM EDT [facility] Comment:Estimated GFR was ca lculated using the CKD-EPIcr (2020) equation refit without race. The equation is recommended by the National Kidney Foundation - [place] [employer] Nephrology Task Force. 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1955 Requested By: EDENILSON HIRSCH Order Number: [id number] Reading MD: Rikki Calderon Measurements Intervals [place] Rate: 60 P: 61 WA: 168 QRS: -8 QRSD: 92 T: 23 QT: 428 QTc: 430 Interpretive Statements SINUS RHYTHM BORDERLINE LEFT AXIS DEVIATION NONSPECIFIC T WAVE ABNORMALITY WARNING: DATA QUALITY MAY AFFECT INTERPRETATION Electronically Signed On 01-26-2025 06:47:17 EDT by Rikki Calderon us Edenilson Hirsch MD IMG ECG ORDERABLES Final Result * ECG AND WAVEFORMS - TELEMETRY (01/25/2025 8:22 PM EDT) ECG INTERPRET NSR [facility] 01/25/2025 8:22 PM EDT Narrative [facility] - 01/25/2025 8:28 PM EDT [place]/AJ WA 0.18 QRS 0.10 RR 0.90 QT 0.40 QTc 0.42 See Clinical Report link for waveform capture us Unknown Provider POINT OF CARE CARDIOLOGY Final Result [facility] [address] [place] [phone] documented in this encounter Visit Diagnoses Diagnosis 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, unspecified cerebrovascular disease type (HCC) Type 2 diabetes mellitus with stage 2 chronic kidney disease, unspecified 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 (HCC) Stage 3 chronic kidney disease, unspecified whether stage 3a or 3b CKD (HCC) Stroke-like symptoms Other symptoms involving nervous and musculoskeletal systems Expressive aphasia Aphasia Hypothyroid Unspecified hypothyroidism Pure hypercholesterolemia Mild intermittent asthma without complication Unspecified asthma Type 2 diabetes mellitus (HCC) Type II or unspecified type diabetes mellitus without mention of complication, not stated as uncontrolled Chronic a-fib (HCC) Atrial fibrillation Coronary artery disease involving [place] coronary artery of [place] heart without angina pectoris documented in this encounter Admitting Diagnoses Diagnosis Stroke-like symptoms Other symptoms involving nervous and musculoskeletal systems documented in this encounter Administered Medications Inactive Administered Medications - up to 1 most recent administrations Medication Order MAR Action Action Date Dose Rate Site acetaminophen (TYLENOL) tablet 650 mg 650 mg, Oral, EVERY 4 HOURS PRN, Starting on Thu01/25/25 at 2313, Until Thu01/27/25 at 1639, Headaches, Fever, Pain, Maximum adult dose of acetaminophen is 4000 mg from all sources in 24 hours. albuterol (PROVENTIL HFA; VENTOLIN HFA) INHALER 2 Puff 2 Puff, Inhalation, PRN, Starting on Thu01/25/25 at 2110, Until Thu01/27/25 at 1639, Wheezing, Shortness of Breath, Waste Sort Code = BLACK RCRA Hazardous Waste Container apixaban (ELIQUIS) tablet 5 mg 5 mg, Oral, 2 TIMES DAILY, First dose on Thu01/25/25 at 2230, Until Discontinued Given 01/27/2025 8:26 AM EDT 5 mg aspirin chewable tablet 81 mg 81 mg, Oral, DAILY, First dose on Thu01/26/25 at 0900, Until Discontinued Given 01/27/2025 8:26 AM EDT 81 mg budesonide-formoteroL (SYMBICORT) 160-4.5 mcg/actuation inhaler 2 Puff 2 Puff, Inhalation, 2 TIMES DAILY (RESP CARE), First dose on Thu01/26/25 at 0800, Until Discontinued, Waste Sort Code = BLACK RCRA Hazardous Waste Container Given 01/27/2025 8:21 AM EDT 2 Puffs cholecalciferol (vitamin D3) tablet 800 Units 800 Units, Oral, DAILY, First dose on Thu01/26/25 at 0900, Until Discontinued Given 01/27/2025 8:26 AM EDT 800 Units dextrose 50 % solution 25 mL 25 mL, Intravenous, PRN, Starting on Thu01/25/25 at 2057, Until Thu01/27/25 at 1639, Low blood sugar, If FSBS less than 70 mg/dl and patient cannot take orally, Check FSBS every 15 minutes and repeat 25 mL of D50 IV push and notify physician if FSBS less than 70 mg/dL VESICANT , Insulin Calculator dilTIAZem (CARDIZEM) tablet 30 mg 30 mg, Oral, EVERY 12 HOURS SCHEDULED (2 times per day), First dose on Thu01/26/25 at 0900, Until Discontinued, May not be appropriate to split, crush, or chew tablets. This varies by sanitation superintendent. Tablets NOT scored should not be split. Contact pharmacy to determine if appropriate. Given 01/27/2025 8:27 AM EDT 30 mg glucagon (GLUCAGEN) injection 1 mg 1 mg, Intramuscular, PRN, Starting on Thu01/25/25 at 2057, Until Thu01/27/25 at 1639, Low blood sugar, If FSBS less than 70 mg/dl, patient cannot take orally and without IV access, If patient is without IV access, give Glucagon 1 mg Intramuscularly, insert IV and call physician., Insulin Calculator insulin aspart U-100 (NovoLOG) injection 0-40 Units 0-40 Units, Subcutaneous, 4 TIMES DAILY AT MEALTIME AND BEDTIME, First dose on Thu01/25/25 at 2230, Until Discontinued, PO Diet: Obtain FSBS before patient begins eating. Administer this dose, which only provides correctional insulin, immediately after FSBS. If patient is NPO or declines meal tray, continue with calculated correction insulin dose. Tube Feeds and TPN: Obtain FSBS and administer this dose, which only provides correctional insulin, immediately after FSBS. Notify physician if FSBS less than 50 or greater than 350. Correction insulin doses must be by at least 3 hours. Insulin Calculator AMMONIA REFRIGERATION TECHNICIAN - DBN, SANJAY, FTT, ICUs, and CVSICU Only Waste Sort Code = BLACK RCRA Hazardous Waste Container, Blood Glucose Target - Daytime (mg/dL): 140, Blood Glucose Target - Nighttime (mg/dL): 180, Hyperglycemia Correction Factor: 50, Insulin Calculator Insulin Calculator (AMMONIA REFRIGERATION TECHNICIAN) - FSBS (Correction Only) Input MISCELLANEOUS, 4 TIMES DAILY AT MEALTIME AND BEDTIME, First dose on Thu01/25/25 at 2230, Until Discontinued, Blood Glucose Target - Daytime (mg/dL): 140, Blood Glucose Target - Nighttime (mg/dL): 180, Hyperglycemia Correction Factor: 50, Insulin Calculator LEVOthyroxine (SYNTHROID) tablet 88 mcg 88 mcg, Oral, EVERY MORNING, First dose on Thu01/26/25 at 0900, Until Discontinued, Take on empty stomach, at least 30 minutes to 1 hour before breakfast. Take at least 4 hours prior before or after calcium- or iron-containing products or bile acid sequestrants. If given via NG or other tubes administer dose as long as possible after feeding and at least 1 hour before resuming feeding. Given 01/27/2025 6:16 AM EDT 88 mcg melatonin tablet 5-10 mg 5-10 mg, Oral, NIGHTLY PRN, Starting on Thu01/25/25 at 2313, Until Thu01/27/25 at 1639, Sleep montelukast (SINGULAIR) tablet 10 mg 10 mg, Oral, DAILY, First dose on Thu01/26/25 at 0900, Until Discontinued Given 01/27/2025 8:26 AM EDT 10 mg nitrofurantoin (macrocrystal-monohydrate) (MACROBID) 100 mg capsule 100 mg 100 mg, Oral, 2 TIMES DAILY, 10 doses, First dose on Thu01/26/25 at 2100, Last dose on Thu01/31/25 at 0900, Take with food., Reason for Therapy: Infection Suspected, Indication: Urinary Tract Infection Given 01/27/2025 8:26 AM EDT 100 mg ondansetron (ZOFRAN) injection 4 mg 4 mg, Intravenous, EVERY 6 HOURS PRN, Starting on Thu01/25/25 at 2313, Until Thu01/27/25 at 1639, Nausea ondansetron (ZOFRAN) tablet 4 mg 4 mg, Oral, EVERY 6 HOURS PRN, Starting on Thu01/25/25 at 2313, Until Thu01/27/25 at 1639, Nausea pantoprazole (PROTONIX) tablet 40 mg 40 mg, Oral, DAILY, First dose on Thu01/26/25 at 0900, Until Discontinued, Do not crush or chew Given 01/27/2025 8:26 AM EDT 40 mg rosuvastatin (CRESTOR) tablet 5 mg 5 mg, Oral, DAILY, First dose on Thu01/26/25 at 0900, Until Discontinued Given 01/27/2025 8:26 AM EDT 5 mg sterile water injection 1 mL 1 mL, Injection, PRN, Starting on Thu01/25/25 at 2057, Until Thu01/27/25 at 1639, Use for drug dilution, Use to dilute and administer glucagon injection, Insulin Calculator documented in this encounter Discontinued Medications Medication Sig Discontinue Reason Start Date End Da te dilTIAZem (CARDIZEM LA) 180 mg Oral Tablet Sustained Release 24 hr Take 180 mg by mouth daily. Removed During Admission Medication Review 01/26/2025 budesonide-formoteroL (SYMBICORT) 160-4.5 mcg/actuation Inhl HFA Aerosol Inhaler Inhale 2 Puffs into the lungs 2 times daily. Removed During Admission Medication Review 01/26/2025 tirzepatide, weight loss, (ZEPBOUND) 2.5 mg/0.5 mL SubQ Pen InjectorIndications:C lass 2 severe obesity due to excess calories with serious comorbidity and body mass index (BMI) of 37.0 to 37.9 in adult (HCC) Subcutaneous (Inject under the skin) 2.5 mg once a week. Stop Taking at Discharge 08/17/2024 01/27/2025 documented as of this encounter Historical Medications * This list may reflect changes made after this encounter. budesonide-glycop yr-formoterol (BREZTRI AEROSPHERE) 160-9-4.8 mcg/actuation Inhl HFA Aerosol Inhaler Inhale 1 Puff into the lungs daily. dilTIAZem (CARDIZEM) 30 mg Oral Tablet Take 30 mg by mouth 2 times daily. added in this encounter Active and Recently Administered Medications Times are shown in EDT. Scheduled Medication Order 01/25/2025 01/26/2025 01/27/2025 apixaban (ELIQUIS) tablet 5 mg 5 mg, Oral, 2 TIMES DAILY, First dose on Thu01/25/25 at 2230, Until Discontinued 2229 (Not Given - Provider: Kirstin Thompson RN - Reason: Other - Comment: took at home) 0857 (Given - Provider: Yanna Clark RN)2045 (Given - Provider: Kirstin Thompson RN) 08 (Given - Provider: Paige Hansen, RN) aspirin chewable tablet 81 mg 81 mg, Oral, DAILY, First dose on Thu01/26/25 at 0900, Until Discontinued 856 (Given - Provider: Yanna Clark RN) 825 (Given - Provider: Paige Hansen, RN) budesonide-formoteroL (SYMBICORT) 160-4.5 mcg/actuation inhaler 2 Puff(Linked Group 1) 2 Puff, Inhalation, 2 TIMES DAILY (RESP CARE), First dose on Thu01/26/25 at 0800, Until Discontinued, Waste Sort Code = BLACK RCRA Hazardous Waste Container 799 (Not Given - Provider: Luz Higuera, ENERGY DERIVATIVES TRADER - Reason: Patient not available - Comment: pt gone)2058 (Given - Provider: Eduardo Johnson, SUKHI) 820 (Given - Provider: Luz Higuera, SUKHI) cholecalciferol (vitamin D3) tablet 800 Units 800 Units, Oral, DAILY, First dose on Thu01/26/25 at 0900, Until Discontinued 856 (Given - Provider: Yanna Clark RN) 825 (Given - Provider: Paige Hansen, RN) dilTIAZem (CARDIZEM) tablet 30 mg 30 mg, Oral, EVERY 12 HOURS SCHEDULED (2 times per day), First dose on Thu01/26/25 at 0900, Until Discontinued, May not be appropriate to split, crush, or chew tablets. This varies by sanitation superintendent. Tablets NOT scored should not be split. Contact pharmacy to determine if appropriate. 855 (Given - Provider: Yanna Clark RN)2044 (Given - Provider: Kirstin Thompson RN) 826 (Given - Provider: Paige Hansen, RN) insulin aspart U-100 (NovoLOG) injection 0-40 Units(Linked Group 2) 0-40 Units, Subcutaneous, 4 TIMES DAILY AT MEALTIME AND BEDTIME, First dose on Thu01/25/25 at 2230, Until Discontinued, PO Diet: Obtain FSBS before patient begins eating. Administer this dose, which only provides correctional insulin, immediately after FSBS. If patient is NPO or declines meal tray, continue with calculated correction insulin dose. Tube Feeds and TPN: Obtain FSBS and administer this dose, which only provides correctional insulin, immediately after FSBS. Notify physician if FSBS less than 50 or greater than 350. Correction insulin doses must be by at least 3 hours. Insulin Calculator AMMONIA REFRIGERATION TECHNICIAN - DBN, SANJAY, FTT, ICUs, and CVSICU Only Waste Sort Code = BLACK RCRA Hazardous Waste Container, Blood Glucose Target - Daytime (mg/dL): 140, Blood Glucose Target - Nighttime (mg/dL): 180, Hyperglycemia Correction Factor: 50, Insulin Calculator 2230 (Not Given - Provider: Kirstin Thompson RN - Reason: Contraindicated) 0800 (Not Given - Provider: Yanna Clark RN - Reason: Order parameters not met)1200 (Not Given - Provider: Yanna Clark RN - Reason: Order parameters not met)1700 (Not Given - Provider: Yanna Clark RN - Reason: Patient Declined - Comment: I refuse. )2100 (Not Given - Provider: Kirstin Thompson RN - Reason: Contraindicated) 0800 (Not Given - Provider: Paige Hansen RN - Reason: Order parameters not met)1200 (Due) Insulin Calculator (AMMONIA REFRIGERATION TECHNICIAN) - FSBS (Correction Only) Input(Linked Group 2) MISCELLANEOUS, 4 TIMES DAILY AT MEALTIME AND BEDTIME, First dose on Thu01/25/25 at 2230, Until Discontinued, Blood Glucose Target - Daytime (mg/dL): 140, Blood Glucose Target - Nighttime (mg/dL): 180, Hyperglycemia Correction Factor: 50, Insulin Calculator 2230 (Non- Med Documentation - Provider: Kirstin Thompson RN) 0800 (Non- Med Documentation - Provider: Yanna Clark RN)1200 (Non- Med Documentation - Provider: Yanna Clark RN)1700 (Non- Med Documentation - Provider: Yanna Clark RN)2100 (Non- Med Documentation - Provider: Kirstin Thompson RN) 0800 (Non- Med Documentation - Provider: Paige Hansen RN)1200 (Due) LEVOthyroxine (SYNTHROID) tablet 88 mcg 88 mcg, Oral, EVERY MORNING, First dose on Thu01/26/25 at 0900, Until Discontinued, Take on empty stomach, at least 30 minutes to 1 hour before breakfast. Take at least 4 hours prior before or after calcium- or iron-containing products or bile acid sequestrants. If given via NG or other tubes administer dose as long as possible after feeding and at least 1 hour before resuming feeding. 0857 (Given - Provider: Yanna Clark, RN) 0616 (Given - Provider: Kirstin Thompson, MENA) montelukast (SINGULAIR) tablet 10 mg 10 mg, Oral, DAILY, First dose on Thu01/26/25 at 0900, Until Discontinued 0857 (Given - Provider: Yanna Clark, RN) 08 (Given - Provider: Paige Hansen, RN) nitrofurantoin (macrocrystal-monohydr ate) (MACROBID) 100 mg capsule 100 mg 100 mg, Oral, 2 TIMES DAILY, 10 doses, First dose on Thu01/26/25 at 2100, Last dose on Thu01/31/25 at 0900, Take with food., Reason for Therapy: Infection Suspected, Indication: Urinary Tract Infection 2045 (Given - Provider: Kirstin Thompson, RN) 08 (Given - Provider: Paige Hansen, RN) pantoprazole (PROTONIX) tablet 40 mg 40 mg, Oral, DAILY, First dose on Thu01/26/25 at 0900, Until Discontinued, Do not crush or chew 0857 (Given - Provider: Yanna Clark, MENA) 08 (Given - Provider: Paige Hansen, RN) rosuvastatin (CRESTOR) tablet 5 mg 5 mg, Oral, DAILY, First dose on Thu01/26/25 at 0900, Until Discontinued 0856 (Given - Provider: Yanna Clark, RN) 08 (Given - Provider: Paige Hansen, RN) PRN Medication Order 01/25/2025 01/26/2025 01/27/2025 acetaminophen (TYLENOL) tablet 650 mg 650 mg, Oral, EVERY 4 HOURS PRN, Starting on Thu01/25/25 at 2313, Until Thu01/27/25 at 1639, Headaches, Fever, Pain, Maximum adult dose of acetaminophen is 4000 mg from all sources in 24 hours. albuterol (PROVENTIL HFA; VENTOLIN HFA) INHALER 2 Puff(Linked Group 1) 2 Puff, Inhalation, PRN, Starting on Thu01/25/25 at 2110, Until Thu01/27/25 at 1639, Wheezing, Shortness of Breath, Waste Sort Code = BLACK RCRA Hazardous Waste Container dextrose 50 % solution 25 mL 25 mL, Intravenous, PRN, Starting on Thu01/25/25 at 205, Until Thu01/27/25 at 1639, Low blood sugar, If FSBS less than 70 mg/dl and patient cannot take orally, Check FSBS every 15 minutes and repeat 25 mL of D50 IV push and notify physician if FSBS less than 70 mg/dL VESICANT , Insulin Calculator glucagon (GLUCAGEN) injection 1 mg(Linked Group 3) 1 mg, Intramuscular, PRN, Starting on Thu01/25/25 at 205, Until Thu01/27/25 at 1639, Low blood sugar, If FSBS less than 70 mg/dl, patient cannot take orally and without IV access, If patient is without IV access, give Glucagon 1 mg Intramuscularly, insert IV and call physician., Insulin Calculator melatonin tablet 5-10 mg 5-10 mg, Oral, NIGHTLY PRN, Starting on Thu01/25/25 at 2313, Until Thu01/27/25 at 1639, Sleep ondansetron (ZOFRAN) injection 4 mg(Linked Group 4) 4 mg, Intravenous, EVERY 6 HOURS PRN, Starting on Thu01/25/25 at 2313, Until Thu01/27/25 at 1639, Nausea ondansetron (ZOFRAN) tablet 4 mg(Linked Group 4) 4 mg, Oral, EVERY 6 HOURS PRN, Starting on Thu01/25/25 at 2313, Until Thu01/27/25 at 1639, Nausea sterile water injection 1 mL(Linked Group 3) 1 mL, Injection, PRN, Starting on Thu01/25/25 at 205, Until Thu01/27/25 at 1639, Use for drug dilution, Use to dilute and administer glucagon injection, Insulin Calculator Linked Groups Order Group 1: budesonide-formoteroL (SYMBICORT) 160-4.5 mcg/actuation inhaler 2 PuffJump to med 2 Puff, Inhalation, 2 TIMES DAILY (RESP CARE), First dose on Thu01/26/25 at 0800, Until Discontinued, Waste Sort Code = BLACK RCRA Hazardous Waste Container And albuterol (PROVENTIL HFA; VENTOLIN HFA) INHALER 2 PuffJump to med 2 Puff, Inhalation, PRN, Starting on Thu01/25/25 at 2110, Until Thu01/27/25 at 1639, Wheezing, Shortness of Breath, Waste Sort Code = BLACK RCRA Hazardous Waste Container Group 2: Insulin Calculator (AMMONIA REFRIGERATION TECHNICIAN) - FSBS (Correction Only) InputJump to med MISCELLANEOUS, 4 TIMES DAILY AT MEALTIME AND BEDTIME, First dose on Thu01/25/25 at 2230, Until Discontinued, Blood Glucose Target - Daytime (mg/dL): 140, Blood Glucose Target - Nighttime (mg/dL): 180, Hyperglycemia Correction Factor: 50, Insulin Calculator And insulin aspart U-100 (NovoLOG) injection 0-40 UnitsJump to med 0-40 Units, Subcutaneous, 4 TIMES DAILY AT MEALTIME AND BEDTIME, First dose on Thu01/25/25 at 2230, Until Discontinued, PO Diet: Obtain FSBS before patient begins eating. Administer this dose, which only provides correctional insulin, immediately after FSBS. If patient is NPO or declines meal tray, continue with calculated correction insulin dose. Tube Feeds and TPN: Obtain FSBS and administer this dose, which only provides correctional insulin, immediately after FSBS. Notify physician if FSBS less than 50 or greater than 350. Correction insulin doses must be by at least 3 hours. Insulin Calculator AMMONIA REFRIGERATION TECHNICIAN - DBN, SANJAY, FTT, ICUs, and CVSICU Only Waste Sort Code = BLACK LILIA Hazardous Waste Container, Blood Glucose Target - Daytime (mg/dL): 140, Blood Glucose Target - Nighttime (mg/dL): 180, Hyperglycemia Correction Factor: 50, Insulin Calculator Group 3: glucagon (GLUCAGEN) injection 1 mgJump to med 1 mg, Intramuscular, PRN, Starting on Thu01/25/25 at 205, Until Thu01/27/25 at 1639, Low blood sugar, If FSBS less than 70 mg/dl, patient cannot take orally and without IV access, If patient is without IV access, give Glucagon 1 mg Intramuscularly, insert IV and call physician., Insulin Calculator And sterile water injection 1 mLJump to med 1 mL, Injection, PRN, Starting on Thu01/25/25 at 205, Until Thu01/27/25 at 1639, Use for drug dilution, Use to dilute and administer glucagon injection, Insulin Calculator Group 4: ondansetron (ZOFRAN) tablet 4 mgJump to med 4 mg, Oral, EVERY 6 HOURS PRN, Starting on Thu01/25/25 at 2313, Until Thu01/27/25 at 1639, Nausea Or ondansetron (ZOFRAN) injection 4 mgJump to med 4 mg, Intravenous, EVERY 6 HOURS PRN, Starting on Thu01/25/25 at 2313, Until Thu01/27/25 at 1639, Nausea documented in this encounter Orders Medications Ordered That Camacho ht Not Have Been Administered Count Last Ordered Date First Ordered Date acetaminophen (TYLENOL) tablet 650 mg 1 11/2024 albuterol (PROVENTIL HFA; VE NTOLIN HFA) INHALER 2 Puff 1 01/25/2025 albuterol (PROVENTIL HFA;AUGIE TOLIN HFA) inhaler 1 Puff 1 01/25/2025 albuterol-ipratropium (DUO-N EB) 3 mg-0.5 mg(2.5 mg base)/3 mL nebulizer solution 3 mL 1 01/25/2025 budesonide-formoteroL (SYMBI JAMES) 160-4.5 mcg/actuation inhaler 2 Puff 1 01/25/2025 dextrose 50 % solution 25 mL 1 01/25/2025 glucagon (GLUCAGEN) injection 1 mg 1 2024 insulin aspart U-100 (NovoLO G) injection 0-40 Units 1 01/25/2025 Insulin Calculator (AMMONIA REFRIGERATION TECHNICIAN) - FSBS (Correction Only) Input 1 01/25/2025 melatonin tablet 5-10 mg 1 01/25/2025 ondansetron (ZOFRAN) injection 4 mg 1 01/25 ondansetron (ZOFRAN) tablet 4 mg 1 01/26/20 sterile water injection 1 mL 1 01/25/2025 Consult Count Last Ordered Date First Orde red Date IP CONSULT TO NEUROLOGY 1 01/25/2025 PT Count Last Ordered Date First Orde red Date PT PLAN OF CARE CERTIFICATION 1 01/26/2025 IP CONSULT TO PHYSICAL THERAPY 1 01/25/2025 Admission Count Last Ordered Date First Orde red Date ADMIT 1 01/25/2025 Discharge Count Last Ordered Date First Orde red Date DISCHARGE PATIENT 1 01/27/2025 documented in this encounter Care Teams Supervisor Major Appliance Assembly Relationship Specialty Start Date End Date No Pcp, Per Patient PCP - General 01/26/25 documented as of this encounter
--- OUTSIDE RECORDS SUMMARY | 2025-02-22 16:38 | XMS_ITS | Clinical Summary ---
Author Organization [facility] Address [address] [place] [id number] Care Team Providers Care Batch Roller Operator Name Role Phone Pcp, No Primary Care Provider Unavailabl e Social History Tobacco Use Types Packs/Day Years Used Date Smoking Tobacco: Never Tobacco Cessation:Counseling Given: Not Answered Alcohol Use Standard Drinks/Week Comments Never 0 (1 standard drink = 0.6 oz pur e alcohol) Comments Unknown Sex and Gender Information Value Date Recorded Sex Assigned at Not on file Legal Sex Female 8:00 PM EDT Gender Identity Not on file Sexual Orientation Not on file Last Filed Vital Signs Vital Sign Reading Time Taken Comments Blood Pressure 115/57 02/05/2023 3:01 PM EDT Pulse 75 02/05/2023 3:01 PM EDT Temperature 36.9 C (98.4 F) 02/05/2023 11:31 AM EDT Respiratory Rate 18 02/05/2023 3:01 PM EDT Oxygen Saturation 95% 02/05/2023 3:01 PM EDT Inhaled Oxygen Concentration - - Weight 114 kg (250 lb 7.1 oz) 02/05/2023 11:31 A M EDT Height 167.6 cm (5' 6 ) 08/17/2019 4:24 PM EST Body Mass Index 40.42 08/17/2019 4:24 PM EST Plan of Treatment Health Maintenance Due Date Last Done Comments [facility]-Bone Density Scan 1955 [facility]-Depression Screening 1955 [facility]-Medicare Annual Wellness (AWV) 1955 [facility]-Infant/Child/Adol SDOH Screenings 1954 [facility]-Obesity Intervention 1960 [facility]- SDOH Screenings 1972 [facility]-Adult SDOH Screenings 1972 [facility]-DTaP,Tdap,and Td Vaccines (1 - Tdap) 1973 CT Colonography 10/17/1999 Colonoscopy 10/17/1999 FIT-DNA 10/17/1999 FIT 10/17/1999 FOBT 10/17/1999 Sigmoidoscopy 10/17/1999 [facility]-Colorectal Cancer Screening 10/17/1999 [facility]-Breast Cancer Screening 2004 [facility]-RSV Vaccine: 60+ Years or (1 - Risk 60-74 years 1-dose series) 2014 [facility]-Zoster Vaccines (2 of 2) 05/27/2022 04/01/2022 [id number] Vaccine (3 - season) 2024 04/22/2021, 09/17/2020 [facility]-Influenza Vaccine (#1) 02/20/202504/01, 04/22/2021, 02/18/2017, Additional history exists [facility]-Hepatitis C Screening Completed 07/12/2019 [facility]-Pneumococcal Vaccine: 50+ Years Completed 04/01/2022, 05/27/2016 HPV Vaccines Aged Out No longer eligi ble based on patient's age to complete this topic [facility]-HIB Vaccines Aged Out No longer e ligible based on patient's age to complete this topic [facility]-Hepatitis A Vaccines Aged Out No longer eligible based on patient's age to complete this topic [facility]-IPV Vaccines Aged Out No longer e ligible based on patient's age to complete this topic [facility]-Rotavirus Vaccines Aged Out No lo nger eligible based on patient's age to complete this topic Procedures Procedure Name Priority Date/Time Associated Diagnosis Comments HEPATITIS C ANTIBODY - ED W/REFLEX TO HCV QUANT PCR Routine 07/12/2019 4:23 PM EST from Last 3 Months or Most Recently Relevant to Health Maintenance Results * Fly Hepatitis C Antibody (07/12/2019 4:23 PM EST) Fly Hepatitis C Ab NEGATIVE Reference Range: Negative SUNQUEST 07/12/2019 4:23 PM EST 07/12/2019 5:09 PM EST us Stormy Rodriguez MD LAB BLOOD ORDERABLES Final Re sult SUNQUEST from Last 3 Months or Most Recently Relevant to Health [place] [address] [employer] MEDICARE Care Teams Batch Roller Operator Relationship Specialty Start Date End Date Pcp, Amy [address] [place] [address] PCP - General Family Medicine 02/05/23
--- OUTSIDE RECORDS SUMMARY | 2025-02-22 16:38 | XMS_ITS | Clinical Summary ---
Author Organization [facility] ([place], [place], [place], [place]) Address [address] [place] [address] Care Team Providers Care Director Of Clinical Services Name Role Phone Ko Sexton MD Primary Care Provider [phone] Allergies Active Allergy Reactions Criticality Noted Date Comments Bee Sting Kit 08/04/2022 Latex Gloves 08/04/2022 Atorvastatin 08/04/2022 Penicillin 08/04/2022 Medications dilTIAZem (CARDIZEM) 60 MG tablet Take 60 mg by mouth 2 (two) times daily. 2 Active ezetimibe (ZETIA) 10 mg tablet Take 10 mg by mouth daily. 3 Active cholecalciferol, vitamin D3, 50 mcg (2,000 unit) Cap Take 1 capsule by mouth daily. 3 Active furosemide (LASIX) 20 MG tablet Take 20 mg by mouth. 2 Active levothyroxine (SYNTHROID, LEVOTHROID) 88 MCG tablet Take 88 mcg by mouth. 2 Active montelukast (SINGULAIR) 10 mg tablet Take 10 mg by mouth. 2 Active Contrave 8-90 mg TbER Take 2 tablets by mouth 2 (two) times daily. 3 Active pantoprazole (PROTONIX) 40 MG tablet Take 40 mg by mouth daily. 3 Active warfarin (COUMADIN, JANTOVEN) 5 MG tabletIndications :myocardial reinfarction prevention,hold now, need follo wup PCP on Thursday to check PT/INR Take 5 mg by mouth once a week Every Thursday . Active warfarin (COUMADIN, JANTOVEN) 2.5 MG tabletIndications :myocardial reinfarction prevention,hold now, need follo wup PCP on Thursday to check PT/INR Take 2.5 mg by mouth daily Except Thursday . Active dexAMETHasone (DECADRON) 4 MG tablet 1 tab q 6 hours x 2 days, then 1 tab 8 hour x 2 days, then 0.5 tab q8h X 2 days, then 0.5 tab bid X 2 days, then stop. 18 tablet 3 Active Active Problems Problem Noted Date Diagnosed Date Pain 08/04/2022 Social History Tobacco Use Types Packs/Day Years Used Date Smoking Tobacco: Never Smokeless Tobacco: Never Alcohol Use Standard Drinks/Week Comments Never 0 (1 standard drink = 0.6 oz pur e alcohol) PRAPARE - Transportation Answer Date Re corded In the past 12 months, has l ack of transportation kept you from medical appointments or from getting medications? No 08/05/2022 Lack of Transportation (Non-Medical) Not on file 08/05/2022 Family and Community Support Answer Masood e Recorded Help with Day to Day Activities Not on file 07/03/2023 Feeling Lonely or Isolated Not on file 07/03 Educational Attainment Answer Date Shun rded Speak language other than Ethiopian at home Not on file 07/03/2023 Want help with school or training Not on file 07/03/2023 Substance Use Answer Date Recorded Used prescription meds for non-medical reasons N ot on file 07/03/2023 Used illegal drugs past 12 months Not on file 07/03/2023 Comments No Sex and Gender Information Value Date Recorded Sex Assigned at Not on file Legal Sex Female 6:50 PM CDT Gender Identity Not on file Sexual Orientation Not on file Last Filed Vital Signs Vital Sign Reading Time Taken Comments Blood Pressure 136/60 08/06/2022 2:10 PM EST Pulse 81 08/06/2022 2:10 PM EST Temperature 36.7 C (98.1 F) 08/06/2022 2:10 PM EST Respiratory Rate 16 08/06/2022 2:03 AM EST Oxygen Saturation 94% 08/06/2022 2:10 PM EST Inhaled Oxygen Concentration - - Weight 104.3 kg (230 lb) 08/04/2022 12:19 PM EST Height 165.1 cm (5' 5 ) 08/04/2022 12:19 PM EST Body Mass Index 38.27 08/04/2022 12:19 PM EST Plan of Treatment Health Maintenance Due Date Last Done Comments CT Colonography 1954 Colonoscopy 1954 Colorectal Cancer Screening 1954 DXA SCAN 1954 FOBT/FIT 1954 Fit-DNA (Cologuard) 1954 Sigmoidoscopy 1954 Depression Screening (12+) 1966 Hepatitis C Screening 1972 DTAP/TDAP/TD VACCINES (1 - Tdap) 1973 Breast Cancer Screening 1994 Shingles Vaccine (Zoster) (2 of 2) 05/27/20222021 Tobacco Cessation Counseling and Screening (12+) 08/05/2023 08/05/2022 COVID-19 VACCINE (3 - season) 02/21/202406/2020, 09/17/2020 Falls Risk Screening 06/22/2024 Influenza Vaccine (#1) 2025 04/01/2022, 2020 Respiratory Syncytial Virus (RSV) Adult or (1 - 1-dose 75+ series) 2029 Pneumococcal 50+ years Completed 04/01/2022 Insurance * Guarantor: Juani Lamb Account Type Relation to Patient Date of Phone Billing Address Personal/Family Self [address] [place] [address] [address] [place] [address] [employer] PPO [employer] MEDICARE PPO Advance Directives For more information, please contact: [phone] * Full Code (Latest Code Status on File) Date Activated Date Inactivated Comments 08/04/2022 7:37 PM 08/06/2022 5:18 PM Care Teams Director Of Clinical Services Relationship Specialty Start Date End Date Ko Sexton MD [address] [place] [address] Dr [address]gs [address] [place] [phone] PCP - General Family Medicine 08/05/22
--- OUTSIDE RECORDS SUMMARY | 2025-02-22 16:38 | XMS_ITS | Continuity of Care Document ---
Author Organization [facility] Address [address] [place] [address] Phone Care Team Providers Care Serology Technician Name Role Phone No Pcp, Per Patient Primary Care Provider Unatonyai nita Encounters Date Type Department Care Team Description 01/25/2025 8:07 PM EDT - 01/27/2025 12:34 PM EDT Hospital Encounter [facility] [address] [address] 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, unspecified cerebrovascular disease type (HCC); Type 2 diabetes mellitus with stage 2 chronic kidney disease, unspecified whether intermediate project manager insulin use (HCC); Stage 3 chronic kidney disease, unspecified whether stage 3a or 3b CKD (HCC) Discharge Disposition: Home or Self Care 08/18/2024 Telephone [facility] [address] [address] Ysabel Bhatt MD Paperwork/forms 08/17/2024 Orders Only [facility] [address] [address] Ysabel Bhatt MD Hyperlipidemia associated with type 2 diabetes mellitus (HCC) (Primary Dx) 08/17/2024 9:20 AM EST Office Visit [facility] [address] [address] Ysabel Bhatt MD Pre-diabetes (Primary Dx); Class 2 severe obesity due to excess calories with serious comorbidity and body mass index (BMI) of 37.0 to 37.9 in adult (HCC) 08/16/2024 Telephone [facility] [place] [address] [facility] [address] [place] [address] Ysabel Bhatt MD Labs Only 11/05/2021 1:30 PM EDT Office Visit [facility] [address] [place] [address] Portillo Kerr DO Follow-up examination following surgery (Primary Dx) 10/10/2021 3:08 AM EDT - 10/17/2021 1:01 PM EDT Hospital Encounter [facility] [address] [facility] [address] [place] [address] Skyler Costa MD Cholecystitis Discharge Disposition: Home or Self Care 2021 3:48 PM EDT Anesthesia Event [facility] [address] [place] [address] Alfonso Hoang MD 2021 3:27 PM EDT - 2021 4:47 PM EDT Surgery [facility] [address] [place] [address] Portillo Kerr DO LAPAROSCOPIC CHOLECYSTECTOMY POSSIBLE OPEN 10/15/2021 1:18 PM EDT Anesthesia Event [facility] ENDOSCOPY [address] [place] [address] René Samson MD 10/15/2021 1:00 PM EDT - 10/15/2021 2:00 PM EDT Surgery [facility] ENDOSCOPY [address] [place] [address] Nathaly Viveros MD ENDOSCOPIC RETROGRADE CHOLANGIOPANCREOGRAPHY (ANESTHESIA) 2021 3:00 AM EDT Anesthesia Event [facility] [address] [facility] [address] [place] [address] Aleshia Rojo MD 10/14/2021 Orders Only [facility] Gen Surg [facility] [address] [facility] [address] [place] [address] Amita Jeffery, Clerical Staff Choledocholithiasis (Primary Dx); Biliary calculus of other site without obstruction 2021 9:59 AM EDT Anesthesia Event [facility] [address] [facility] [address] [place] [address] Aleshia Rojo MD 10/11/2021 9:30 AM EDT - 10/11/2021 10:30 AM EDT Surgery [facility] ENDOSCOPY [address] [place] [address] Nathaly Viveros MD ENDOSCOPIC RETROGRADE CHOLANGIOPANCREOGRAPHY (ANESTHESIA) 10/11/2021 9:44 AM EDT Anesthesia Event [facility] ENDOSCOPY [address] [place] [address] Ko Zambrano MD Corriveau, Matthew M, MD 10/10/2021 Travel 06/12/2020 Telephone [facility] [address] [place] [address] Juani Aguiar, assistant real estate manager 11/16/2009 5:16 AM EDT - 11/16/2009 11:59 PM EDT Hospital Encounter [facility] Raheem Negro MD 11/16/2009 3:15 PM EDT Office Visit [facility] [address] [place] [address] Raheem Negro MD Heart disease; Routine gynecological examination 11/15/2001 7:10 PM EDT - 11/15/2001 8:45 PM EDT Emergency [facility] Generic, Historical Provider 09/02/2000 Hospital Encounter [facility] Generic, Historical Provider Allergies Active Allergy Reactions Criticality Noted Date Comments Penicillins Latex Other (See Comments) 10/10/2021 Not specified Venom-Honey Bee Anaphylaxis High 10/11/2021 Medications VITAMIN D3 10 mcg (400 unit) Oral Capsule Take 2 Capsules by mouth daily. 08/24/19 22 Active fUROsemide (LASIX) 20 mg Oral Tablet Take 20 mg by mouth daily as needed. 08/22/19 22 Active LEVOthyroxine (SYNTHROID) 88 mcg Oral Tablet Take 88 mcg by mouth every morning. 10/02/19 22 Active montelukast (SINGULAIR) 10 mg Oral Tablet Take 10 mg by mouth daily. 10/02/19 22 Active apixaban (ELIQUIS) 5 mg Oral Tablet Take 5 mg by mouth 2 times daily. Active aspirin 81 mg Oral Capsule Take 1 Capsule by mouth daily. Active albuterol (PROVENTIL HFA;VENTOLIN HFA) 90 mcg/actuation Inhl HFA Aerosol Inhaler Inhale 1 Puff into the lungs as needed. Active albuterol-iprat ropium (DUO-NEB) 0.5 mg-3 mg(2.5 mg base)/3 mL Inhl Solution for Nebulization Take 3 mL by nebulization as needed. Active pantoprazole (PROTONIX) 40 mg Oral Tablet, Delayed Release (E.C.) Take 1 Tablet by mouth daily. 07/15/19 23 Active rosuvastatin (CRESTOR) 5 mg Oral Tablet Take 5 mg by mouth daily. 07/21/19 25 Active Blood-Glucose Meter (ACCU-CHEK GUIDE GLUCOSE METER) Misc Misc by Misc.(Non-Drug; Combo Route) route once. Active Blood Sugar Diagnostic Misc Strip by Misc.(Non-Drug; Combo Route) route 2 times daily. Active Lancets Misc Misc by Misc.(Non-Drug; Combo Route) route 2 times daily. Active dilTIAZem (CARDIZEM) 30 mg Oral Tablet Take 30 mg by mouth 2 times daily. Active budesonide-glyc opyr-formoterol (BREZTRI AEROSPHERE) 160-9-4.8 mcg/actuation Inhl HFA Aerosol Inhaler Inhale 1 Puff into the lungs daily. Active dilTIAZem (CARDIZEM LA) 180 mg Oral Tablet Sustained Release 24 hr Take 180 mg by mouth daily. 025 Discontinued (Removed During Admission Medication Review) budesonide-form oteroL (SYMBICORT) 160-4.5 mcg/actuation Inhl HFA Aerosol Inhaler Inhale 2 Puffs into the lungs 2 times daily. 025 Discontinued (Removed During Admission Medication Review) tirzepatide, weight loss, (ZEPBOUND) 2.5 mg/0.5 mL SubQ Pen InjectorIndicat ions:Class 2 severe obesity due to excess calories with serious comorbidity and body mass index (BMI) of 37.0 to 37.9 in adult (HCC) Subcutaneous (Inject under the skin) 2.5 mg once a week. 2 mL 3 08/17/19 025 Discontinued (Stop Taking at Discharge) cephALEXin (KEFLEX) 500 mg Oral Capsule Take 1 Capsule by mouth 2 times daily for 7 days. 14 Capsule 02/02/20 025 Active Problems Problem Noted Date Diagnosed Date TIA (transient ischemic attack) 01/25/2025 Assessment & Plan (01/26/2025 12:04 AM EDT): Likely TIA given near complete resolution of symptoms CT head, CTA head/neck negative for any acute abnormalities MRI brain here at [facility] showed no evidence of acute stroke Resume INSURANCE AGENCY SALES MANAGER Eliquis/aspirin/Crestor Patient inquiring if there is benefit for adding Plavix, will check with neurology 2D echo with bubble study Neurology consult No evidence of recurrent A-fib on EKG/telemetry so far Risk factor reduction Expressive aphasia 01/25/2025 Assessment & Plan (01/26/2025 12:04 AM EDT): Likely TIA given near complete resolution of symptoms CT head, CTA head/neck negative for any acute abnormalities MRI brain here at [facility] showed no evidence of acute stroke Resume INSURANCE AGENCY SALES MANAGER Eliquis/aspirin/Crestor Patient inquiring if there is benefit for adding Plavix, will check with neurology 2D echo with bubble study Neurology consult No evidence of recurrent A-fib on EKG/telemetry so far Risk factor reduction Chronic a-fib 01/25/2025 Assessment & Plan (01/26/2025 12:04 AM EDT): On rate control with Cardizem 30 Mg twice daily Resume INSURANCE AGENCY SALES MANAGER Eliquis Currently in sinus rhythm Coronary artery disease invo lving seminole coronary artery of seminole heart without angina pectoris 01/25/2025 Assessment & Plan (01/26/2025 12:04 AM EDT): Resume aspirin, statin for secondary prevention Follows with cardiology at [place] Type 2 diabetes mellitus 01/25/2024 Assessment & Plan (01/26/2025 12:04 AM EDT): Sliding scale insulin Last A1c 5.9 in July Mild intermittent asthma without complication Assessment & Plan (01/26/2025 12:04 AM EDT): Resume albuterol and Symbicort inhalers Common bile duct stone 10/10/2021 Current use of intermediate project manager anticoagulation 022 Pure hypercholesterolemia 10/10/2021 Assessment & Plan (01/26/2025 12:04 AM EDT): INSURANCE AGENCY SALES MANAGER Crestor Lipid panel in a.m. ordered Hypothyroid 10/10/2021 Assessment & Plan (01/26/2025 12:04 AM EDT): INSURANCE AGENCY SALES MANAGER levothyroxine Appears clinically euthyroid Cholelithiasis 10/10/2021 Overview (10/14/2021): Added automatically from request for surgery [id number] Heart disease Resolved Problems Problem Noted Date Diagnosed Date Resolved Date Paroxysmal atrial fibrillation 10/10/2021 08/17/2024 Family History Medical History Relation Name Comments Diabetes Brother Diabetes Mother Heart Attack Mother Diabetes Sister Relation Name Status Comments Brother Mother Sister Social History Smoking Status as of 02/22/2025 Tobacco Use Types Packs/Day Years Used Date Smoking Tobacco: Never Assessed [facility] Utilities Answer Date Recorded In the past 12 months has e electric, gas, oil, or water company threatened to shut off services in your home? No 01/26/2025 Overall Financial Resource Strain (CARDIA) Answe r Date Recorded How hard is it for you to pa y for the very basics like food, housing, medical care, and heating? Not very hard 01/26/2025 PHQ-2 Answer Date Recorded PHQ-2 Total Score 0 01/26/2025 [place] [facility] [employer] - Occupational Stress [...] things needed for daily living? No 10/10/2021 [facility] IP Transportation Answer D ate Recorded In the past 12 months, has l ack of reliable transportation kept you from medical appointments, meetings, work or from getting things needed for daily living? No 01/26/2025 Sex and Gender Information Value Date Recorded [...] 12:04 PM EDT Respiratory Rate 16 01/27/2025 12:0 4 PM EDT Oxygen Saturation 95% 01/27/2025 12: 04 PM EDT Inhaled Oxygen Concentration - - Weight 105.8 kg (233 lb 3.2 oz) 08/17/2024 9:21 AM EST Height 167.6 cm (5' 6 ) 08/17/2024 9:21 AM EST Body Mass Index 37.64 08/17/2024 9:21 AM EST Plan of Treatment Not on file Medical Devices Implanted Type Area Cut Out Operator Device Identifier Shelf Expiration Date Model / Serial / Lot Stent Panc [id number] Geenen 170/320cm Sprl Sh Tapr 0.018in Gw - [id number] Implanted:Qty: 1 on 10/15/2021 by Nathaly Viveros MD at [facility] Stent COOK:ENDOSCOPY 02/06/2024 [id number] / / [id number] Explanted Type Area Cut Out Operator Device Identifier Shelf Expiration Date Model / Serial / Lot Stent Panc [id number] Geenen 170/320cm Sprl Sh Tapr 0.025in Gw - [id number] Implanted:Qty: 1 on 10/11/2021 by Nathaly Viveros MD at [facility] Explanted:Qty: 1 on 10/15/2021 at [facility] N/A: Bile Duct COOK:ENDOSCOPY 12/08/2021 [id number] / / [id number] Procedures Procedure Name Priority Date/Time Associated Diagnosis Comments EXTRA LAVENDER Routine 01/27/2025 8:46 AM EDT EXTRA TUBES PANEL Routine 01/27/2025 8:46 AM EDT BASIC METABOLIC [...] AM EDT UA W/REFLEX TO CULTURE Routine 11:39 AM EDT URINE CULTURE (NO STAIN) Routine 025 11:39 AM EDT EXTRA SHORT URINE CX Routine 01/26/2025 11:39 AM EDT EEG AWAKE [...] REFLEX Early AM 01/25/2025 8:59 PM EDT HEPATIC FUNCTION PANEL Routine 8:59 PM EDT HEMOGLOBIN A1C Routine 01/25/2025 8:59 PM EDT PT / INR Routine 01/25/2025 8:59 PM EDT BASIC METABOLIC PANEL Routine 01/25/2025 8:59 PM EDT EK EKG 12 LEAD STAT 01/25/2025 8:48 PM EDT ADMIT Routine 01/25/2025 8:48 PM EDT IP CONSULT TO NEUROLOGY Routine 01/26/20 8:48 PM EDT Procedure Note - Juan [...] Ms. Arenas presented to the ED at [facility] on 01/25/25 due toconcerns for speech difficulties. [...] acutefindings, and she was then transferred to [place]. She reportedoverall subjective worsening of her symptoms throughout the day, withresolution shortly after she was transferred to [facility]. Today, shefeels back to her baseline. She reports compliance with eliquis, aspirin, crestor, and all othermedications. She had presented to the [facility] in 2022 with right-sidedweakness and at the [...] Chronic a-fib (HCC) Coronary artery disease involving seminole coronary artery of seminole heartwithout angina pectoris Type 2 diabetes mellitus (HCC) Mild intermittent asthma without complication Hypothyroid Pure hypercholesterolemia Past Surgical History: Procedure Laterality Date CHOLECYSTECTOMY, LAPAROSCOPIC N/A 2021 LAPAROSCOPIC CHOLECYSTECTOMY WITH INTRAOPERATIVE CHOLANGIOGRAM, COMMONBILE DUCT EXPLORATION ; Surgeon: Portillo Kerr DO; [facility]; Service: General ERCP N/A 10/11/2021 ENDOSCOPIC RETROGRADE CHOLANGIOPANCREOGRAPHY with stent placement;Surgeon: Nathaly Viveros MD; Location: [facility] ENDOSCOPY;Service: Endoscopy ERCP N/A 10/15/2021 ENDOSCOPIC RETROGRADE CHOLANGIOPANCREOGRAPHY with sphincterotomy andstent exchange; Surgeon: Nathaly Viveros MD; Location: [facility]; Service: Endoscopy HIP SURGERY Bilateral KNEE SURGERY [...] Misc Misc byMisc.(Non-Drug; Combo Route) route once. nfdfyjdcbs-ypcafjya-lafczvjdqw (BREZTRI AEROSPHERE) 160-9-4.8mcg/actuation Inhl HFA Aerosol Inhaler [...] Oral 2 times per day Insulin Calculator (SHIPPER) - FSBS (Correction Only) Input 1 EachMISCELLANEOUS [...] the undersigned, however, may still contain unintendederrors. ECG AND WAVEFORMS - TELEMETRY Routine 01/25/2025 8:22 PM EDT POCT GLYCATED HEMOGLOBIN, TOTAL Routine 08/17/2024 9:28 AM EST Pre-diabetes SCANNED RHYTHM STRIPS 10/18/2021 9:44 PM EDT SCANNED EKG 10/18/2021 9:44 PM EDT HEMOGLOBIN AND HEMATOCRIT Early AM 2021 6:34 AM EDT MAGNESIUM LEVEL Early AM 10/17/2021 6:34 AM EDT BASIC METABOLIC PANEL Early AM 10/17/2021 6:34 AM EDT FL CHOLANGIOGRAM INTRAOPERATIVE CRISTIANE 2021 5:15 PM EDT PATHOLOGY TISSUE REQUEST Routine 022 4:59 PM EDT Cholecystiti s INTRAOP AIRWAY PLACEMENT Routine 022 3:55 PM EDT LAPAROSCOPIC CHOLECYSTECTOMY POSSIBLE OPEN 2021 3:48 PM EDT Cholecystiti s HEPATIC FUNCTION PANEL Early AM 6:50 AM EDT BASIC METABOLIC PANEL Early AM 2021 6:50 AM EDT LIPASE LEVEL Routine 2021 6:50 AM EDT HEMOGLOBIN AND HEMATOCRIT Early AM 2021 6:49 AM EDT DISCONTINUE IV Routine 10/15/2021 4:18 PM EDT DISCONTINUE IV Routine 10/15/2021 4:18 PM EDT EK EKG 12 LEAD STAT 10/15/2021 4:03 PM EDT FL ERCP BILIARY AND PANCREATIC CRISTIANE 10/15/2021 2:58 PM EDT INTRAOP AIRWAY PLACEMENT Routine 022 1:26 PM EDT ENDOSCOPIC RETROGRADE CHOLANGIOPANCREOGRAPHY (ANESTHESIA) 10/15/2021 1:17 PM EDT Common bile duct stone LIPASE LEVEL STAT 10/15/2021 11:33 AM EDT HEPATIC FUNCTION PANEL Early AM 11:33 AM EDT BASIC METABOLIC PANEL Early AM 10/15/2021 11:33 AM EDT CBC WITH DIFF Early AM 10/15/2021 11:33 AM EDT GMED ERCP Routine 10/15/2021 1:00 AM EDT CORONAVIRUS 2019 Routine 10/14/2021 10:01 AM EDT CBC WITH DIFF Routine 10/14/2021 6:43 AM EDT LIPASE LEVEL Routine 10/14/2021 6:06 AM EDT HEPATIC FUNCTION PANEL Routine 6:06 AM EDT BASIC METABOLIC PANEL Routine 10/14/2021 6:06 AM EDT LIPASE LEVEL Routine 10/13/2021 7:07 AM EDT CBC WITH DIFF Routine 10/13/2021 7:07 AM EDT COMPREHENSIVE METABOLIC PANEL Early AM 10/13/2021 7:07 AM EDT IP CONSULT TO GENERAL SURGERY Routine 10/12/2021 12:48 PM EDT Procedure Note - Brent New MD - 10/13/2021 12:54 PM EDTThis note is in progress. Surgery Consult Note CSN:[id number] NAME:Juani Arenas :1955 Referring MD/Provider: Dr Cash Impression: Cholelithiasis with choledocholithiasis Patient Active Problem List Diagnosis Heart disease Common bile duct stone Paroxysmal atrial fibrillation (HCC) Current use of intermediate project manager anticoagulation Pure hypercholesterolemia Hypothyroid Plan: Will discuss with GI regarding plan for the common bile duct stone Will need eventual cholecystectomy on this admission Continue to hold Rivka Wilcoxay to have clears Keep n.p.o. past midnight Medical Decision Making 65-year-old lady with gallstone disease complicated by stone in the commonbile duct. Unfortunately an ERCP was performed by GI team and was notsuccessful. Plan for definitive management of the common bile duct stoneis necessary prior to any surgery for the gallbladder. I shared this withthe patient. Eventually the patient would benefit from a laparoscopiccholecystectomy. I have discussed this case with my partner Dr. Waldo tuttle be rounding at [facility] tomorrow. Patient understandsthe plan above. All questions answered. CC: History of Present Illness: Ms. Arenas is a 65-year-old female with past medical history of A. kemi Jenkinsis, DM, HLD, PE and stroke She was admitted via ER with epigastric pain that started 5 days back.This was associated with multiple episodes of vomiting. Ultrasound of thebiliary tree showed a common bile duct stone. GI team was consulted.ERCP was attempted. There was found to be a periampullary diverticulumdue to which cannulation of the common bile duct was not successful. Apancreatic duct stent was placed at the time of this procedure. Surgicalteam has been consulted for further management of gallstones. At presentpatient denies having any abdominal pain. She is eager to know thesubsequent plan for management of stone in the common bile duct. PSFH: Past Medical History: Diagnosis Date Atrial fibrillation (HCC) Diabetes mellitus (HCC) pt states she is no longer diabetic 10/11/21 Hyperlipidemia Pulmonary embolism (HCC) Stroke (HCC) Thyroid disease Tuberculosis Past Surgical History: Procedure Laterality Date ERCP N/A 10/11/2021 ENDOSCOPIC RETROGRADE CHOLANGIOPANCREOGRAPHY with stent placement;Surgeon: Nathaly Viveros MD; Location: [facility] ENDOSCOPY;Service: Endoscopy HIP SURGERY Bilateral KNEE SURGERY Right MEDIASTINOSCOPY No current facility-administered medications on file prior to encounter. Current Outpatient Medications on File Prior to Encounter Medication Sig Dispense Refill acetaminophen 325 mg Oral Tab Take 325 mg by mouth every 6 hours asneeded. apixaban (ELIQUIS) 5 mg Oral Tablet Take 5 mg by mouth 2 times daily. diltiazem (CARDIZEM LA) 180 mg 24 hr tablet Take 180 mg by mouth daily. ezetimibe (ZETIA) 10 mg Oral Tablet Take 10 mg by mouth daily. fUROsemide (LASIX) 20 mg Oral Tablet Take 20 mg by mouth daily asneeded. LEVOthyroxine (SYNTHROID) 88 mcg Oral Tablet Take 88 mcg by mouth everymorning. montelukast (SINGULAIR) 10 mg Oral Tablet Take 10 mg by mouth daily. OZEMPIC 0.25 mg or 0.5 mg(2 mg/1.5 mL) SubQ Pen Injector Subcutaneous(Inject under the skin) 0.25 mg once a week. VITAMIN D3 10 mcg (400 unit) Oral Capsule Take 2 Capsules by mouthdaily. Allergies Allergen Reactions Venom-Honey Bee Anaphylaxis Latex Other (See Comments) Not specified Penicillins Family History Problem Relation Age of Onset Diabetes Sister Diabetes Brother Social History Socioeconomic History Marital status: Spouse name: Not on file Number of children: Not on file Years of education: Not on file Highest education level: Not on file Occupational History Not on file Tobacco Use Smoking status: Never Smoker Smokeless tobacco: Never Used Vaping Use Vaping Use: Never used Substance and Sexual Activity Alcohol use: No Drug use: No Sexual activity: Yes Partners: Male control/protection: Post-menopausal Other Topics Concern Not on file Social History Narrative Not on file Social Determinants of Health Financial Resource Strain: Low Risk Difficulty of Paying Living Expenses: Not very hard Food Insecurity: No Food Insecurity Worried About Running Out of Food in the Last Year: Never true Ran Out of Food in the Last Year: Never true Transportation Needs: No Transportation Needs Lack of Transportation (Medical): No Lack of Transportation (Non-Medical): No Physical Activity: Not on file Stress: Not on file Social Connections: Not on file Intimate Partner Violence: Not on file Housing Stability: Not on file ROS: Positive for: As above More than 10 systems were reviewed, no abnormalities were reported by thepatient except for those mentioned above. Vitals: Vitals: 10/14/21 0828 BP: 108/41 Pulse: 88 Resp: 18 Temp: 99.5 F (37.5 C) SpO2: 90% Physical Exam Exam: General: comfortable, in no acute distress Eyes: Sclerae anicteric ENT: mucus membranes moist. Respiratory: Bilateral symmetric respiratory excursion Skin: Warm and dry with normal skin turgor, no peripheral edema Neuro: Grossly intact, Psychiatric: Appropriate mood and affect GI/Abd: Abdomen is soft, nontender, nondistended, no palpable masses, nohepatosplenomegaly, no ascites Labs: Lab Results Component Value Date WBC 12.6 (H) 10/13/2021 HGB 11.6 10/13/2021 HCT 33.7 (L) 10/13/2021 MCV 87.3 10/13/2021 PLT 182 10/13/2021 Lab Results Component Value Date NA 143 10/13/2021 K 3.9 10/13/2021 CL 112 (H) 10/13/2021 CO2 19 (L) 10/13/2021 BUN 11 10/13/2021 CREATININE 0.92 10/13/2021 CALCIUM 8.3 (L) 10/13/2021 GLU 100 10/13/2021 Lab Results Component Value Date INR 1.44 (H) 10/10/2021 No results found for: [facility] Imaging Reviewed: No results found for this or any previous visit. No results found for this or any previous visit. Results for orders placed during the hospital encounter of 04/21/22 CT ABDOMEN PELVIS WO ORAL OR IV CONTRAST Narrative CT ABDOMEN AND PELVIS WITHOUT IV OR ORAL CONTRAST, 10/11/2021 1:37 PM CLINICAL HISTORY: -CBD stone, CBD dilatation. COMPARISON: 10/09/2021 PROCEDURE COMMENTS: Multidetector CT examination of the abdomen andpelvis without IV or oral contrast per protocol. Multiplanar reconstructions. Dose 1 : CT DLP Total : 1009.88 mGycm DLP Spiral Max : 1002.95 mGycm Maximum CTDI Vol : 21.33 mGy SSDE : 15.9975 mGy SSDE Diameter : 43.4 cm SSDE Source : Lat FINDINGS: LOWER THORAX: Lung bases unremarkable. ABDOMEN AND PELVIS: No intrahepatic biliary dilatation. No hepatic mass. Gallstones seen on recent ultrasound not seen on CT. No CT evidence ofacute cholecystitis. There is a stent in the pancreatic duct. Nocholedocholithiasis is seen on CT. Common bile duct measures up to 8 mm in diameter. Remaindersolid abdominal organs within normal limits. No bowel obstruction or acute inflammatory process. No evidence ofappendicitis. Pelvic viscera unremarkable. No abnormal fluid or adenopathy. No acute osseous abnormality identified. Impression : 1. No intrahepatic biliary dilatation. 2. No choledocholithiasis seen. - Note: Radiology results need to be interpreted within a comprehensiveclinical context. If you have questions about the radiology report, please contactthe office of the ordering clinician. No results found for this or any previous visit. No results found for this or any previous visit. No results found for this or any previous visit. Labs: Lab results were reviewed in [employer] and pertinent positives are: seesynopsis Imaging: Imaging studies (both written report and images on file) werereviewed in [employer] and pertinent positives are: see synopsis Existing medical record: progress notes, consults and miscellaneousrecords were reviewed in [employer] and pertinent positives are: see synopsis 1. The patient indicates understanding of these issues and agrees with theplan. 2. I have reviewed the patient's past medical, family, social history andcurrent medications 3. I reviewed all the relevant labs and imaging I would like to thank you for letting me participate in the care of thisinteresting patient. Brent New MD Colon and Rectal Surgeon [facility] Office phone (EDG): [phone] Office phone (FTT): [phone] This note was created using voice recognition technology and despiteproof-reading efforts may contain unintended errors. HEPATIC FUNCTION PANEL Timed 6:03 AM EDT COMPREHENSIVE METABOLIC PANEL Early AM 10/12/2021 6:03 AM EDT MRI MRCP WO CONTRAST [facility] 10/11/2021 4:[address] ABDOMEN PELVIS WO ORAL OR IV CONTRAST [facility] 10/11/2021 1:37 PM EDT IP CONSULT TO INTERVENTIONAL RADIOLOGY [facility] 10/11/2021 11:57 AM EDT Procedure Note - Michelle Sr PA-C - 10/11/2021 2:09 PM EDTThis note is in progress. Images from the original note were not included. INTERVENTIONAL RADIOLOGY CONSULT Date: 10/11/2021 Time: 2:09 PM Name:Juani Arenas :1955 Age:65 y.o. M/F: female Attending Provider: Skyler Costa MD Primary Care Physician: Gilberto Cates MD CC: Common bile duct stone HPI: 65 y.o. 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 Dr. Viveros discussed this case with Dr. Chanel forpotential PTC drain placement with hope for rendezvous procedure inseveral weeks. CT without contrast was ordered of the abdomen to evaluatefor intrahepatic biliary dilatation. FMH: Family History Problem Relation Age of Onset Diabetes Sister Diabetes Brother Social HX: Social History Socioeconomic History Marital status: Spouse name: None Number of children: None Years of education: None Highest education level: None Tobacco Use Smoking status: Never Smoker Smokeless tobacco: Never Used Vaping Use Vaping Use: Never used Substance and Sexual Activity Alcohol use: No Drug use: No Sexual activity: Yes Partners: Male control/protection: Post-menopausal Social Determinants of Health Financial Resource Strain: Low Risk Difficulty of Paying Living Expenses: Not very hard Food Insecurity: No Food Insecurity Worried About Running Out of Food in the Last Year: Never true Ran Out of Food in the Last Year: Never true Transportation Needs: No Transportation Needs Lack of Transportation (Medical): No Lack of Transportation (Non-Medical): No PMH: Past Medical History: Diagnosis Date Atrial fibrillation (HCC) Diabetes mellitus (HCC) pt states she is no longer diabetic 10/11/21 Hyperlipidemia Pulmonary embolism (HCC) Stroke (HCC) Thyroid disease Tuberculosis PSxHx: Past Surgical History: Procedure Laterality Date ERCP N/A 10/11/2021 ENDOSCOPIC RETROGRADE CHOLANGIOPANCREOGRAPHY with stent placement;Surgeon: Nathaly Viveros MD; Location: [facility] END[facility]COPY;Service: Endoscopy HIP SURGERY Bilateral KNEE SURGERY Right MEDIASTINOSCOPY Allergies: Allergies as of 10/10/2021 - Verified 10/10/2021 Allergen Reaction Noted Latex Other (See Comments) 10/10/2021 Penicillins Meds: Current Facility-Administered Medications: dextrose 50 % solution 25 mL, 25 mL, Intravenous, PRN, Ysameen Costa MD dilTIAZem CD capsule 180 mg, 180 mg, Oral, Daily, Skyler Costa MD,180 mg at 10/11/21 0841 glucagon (GLUCAGEN) injection 1 mg, 1 mg, Intramuscular, PRN ANDsterile water injection 1 mL, 1 mL, Injection, PRN, Skyler Costa MD LEVOthyroxine (SYNTHROID) tablet 88 mcg, 88 mcg, Oral, QAM, Skyler Costa MD, 88 mcg at 10/11/21 0841 morphine injection 1-2 mg, 1-2 mg, Intravenous, Q4H PRN, Yasmeen Costa MD ondansetron (ZOFRAN) tablet 4 mg, 4 mg, Oral, Q4H PRN ORondansetron (ZOFRAN) injection 4 mg, 4 mg, Intravenous, Q4H PRN, Skyler Costa MD pantoprazole (PROTONIX) 40 mg in sodium chloride 0.9% 10 mL injection,40 mg, Intravenous, Daily, 40 mg at 10/10/21 0807 OR pantoprazole(PROTONIX) tablet 40 mg, 40 mg, Oral, Daily, Skyler Costa MD sodium chloride 0.9% IV line flush 20-50 mL, 20-50 mL, Intravenous,PRN, Skyler Costa MD sodium chloride 0.9% syringe, , Intravenous, 2 times per day, Skyler Costa MD, Given at 10/10/21 0900 sodium chloride 0.9% syringe, , Intravenous, PRN, Skyler Costa MD Vitals: 10/11/21 1304 BP: 122/58 Pulse: 64 Resp: 16 Temp: SpO2: 96% Labs: Lab Results Component Value Date CREATININE 1.03 10/11/2021 BUN 11 10/11/2021 NA 141 10/11/2021 K 4.0 10/11/2021 CL 107 10/11/2021 CO2 22 10/11/2021 Lab Results Component Value Date WBC 6.9 10/10/2021 HGB 13.1 10/10/2021 HCT 39.6 10/10/2021 MCV 91.2 10/10/2021 PLT 232 10/10/2021 Imaging: CT ABDOMEN AND PELVIS WITHOUT IV OR ORAL CONTRAST, 10/11/2021 1:37 PM CLINICAL HISTORY: -CBD stone, CBD dilatation. COMPARISON: 10/09/2021 PROCEDURE COMMENTS: Multidetector CT examination of the abdomen andpelvis without IV or oral contrast per protocol. Multiplanar reconstructions. Dose 1 : CT DLP Total : 1009.88 mGycm DLP Spiral Max : 1002.95 mGycm Maximum CTDI Vol : 21.33 mGy SSDE : 15.9975 mGy SSDE Diameter : 43.4 cm SSDE Source : Lat FINDINGS: LOWER THORAX: Lung bases unremarkable. ABDOMEN AND PELVIS: No intrahepatic biliary dilatation. No hepatic mass. Gallstones seen on recent ultrasound not seen on CT. No CT evidence ofacute cholecystitis. There is a stent in the pancreatic duct. Nocholedocholithiasis is seen on CT. Common bile duct measures up to 8 mm in diameter. Remaindersolid abdominal organs within normal limits. No bowel obstruction or acute inflammatory process. No evidence ofappendicitis. Pelvic viscera unremarkable. No abnormal fluid or adenopathy. No acute osseous abnormality identified. IMPRESSION: 1. No intrahepatic biliary dilatation. 2. No choledocholithiasis seen. Assessment/Plan: 1. Patient reviewed with Drs. Lee and Yanique. At this time, there is nodilatation present thereby making placement of a PTC drain difficult.There is no IR procedure indicated at this time. This information wasconveyed to Dr. Viveros via PS. Please reach out to the departmentwith any further questions Signature: Michelle Sr PA-C [place] ERCP BILIARY AND PANCREATIC CRISTIANE 10/11/2021 11:55 AM EDT INTRAOP AIRWAY PLACEMENT Routine 022 9:51 AM EDT ENDOSCOPIC RETROGRADE CHOLANGIOPANCREOGRAPHY (ANESTHESIA) 10/11/2021 9:44 AM EDT Choledocholi thiasis GMED ERCP Routine 10/11/2021 9:30 AM EDT HEPATIC FUNCTION PANEL Timed 6:42 AM EDT COMPREHENSIVE METABOLIC PANEL Early AM 10/11/2021 6:42 AM EDT MICROALBUMIN/CREATININE RATIO URINE Routine 10/10/2021 1:44 PM EDT PT / INR Routine 10/10/2021 9:20 AM EDT HEPATIC FUNCTION PANEL Routine 9:20 AM EDT GLUCOSE METER POC Routine 10/10/2021 7:58 AM EDT COMPREHENSIVE METABOLIC PANEL Routine 10/10/2021 7:58 AM EDT CBC WITH DIFF Routine 10/10/2021 7:58 AM EDT HEMOGLOBIN A1C Routine 10/10/2021 7:58 AM EDT EK EKG 12 LEAD Routine 10/10/2021 7:39 AM EDT ADMIT Routine 10/10/2021 3:33 AM EDT CORONAVIRUS 2019 - EXT LAB Routine 10/09/2021 8:53 PM EDT XR HIP LEFT AP LATERAL W AP PELVIS Routine 10/07/2013 12:36 PM EDT Causalgia of lower limb SCANNED PATHOLOGY REPORT 010 12:00 AM EDT SCANNED LABS 03/28/2010 12:00 AM EDT HPV RESULTS Routine 11/16/2009 11:19 AM EDT PARCEL POST CARRIER CYTOLOGY REPORT Routine 11/16/2009 6:03 AM EDT Results * EXTRA LAVENDER (01/27/2025 8:46 AM EDT) Blood VENOUS BLOOD / Unknown Venipuncture / Unknown 01/27/2025 8:46 AM EDT 01/27/2025 10:38 AM EDT Juan Sneed MD HEMATOLOGY ORDERABLES Final R esult [facility] [address] [place] [address] * (ABNORMAL) BASIC METABOLIC PANEL (01/27/2025 8:46 AM EDT) Only the most recent of6 resultswithin the time period is included. Sodium 140 136 - 145 mmol/L 01/27/2025 10:06 AM EDT [facility] Potassium 4.2 3.5 - 5.0 mmol/L 01/27/2025 10:06 AM EDT [facility] Chloride 106 98 - 107 mmol/L 01/27/2025 10:06 AM EDT [facility] Total CO2 21(L) 22 - 29 mmol/L 01/27/2025 10:06 AM EDT [facility] Anion Gap 13 7 - 16 mmol/L 01/27/2025 10:06 AM EDT [facility] Calcium 9.5 8.8 - 10.4 mg/dL 01/27/2025 10:06 AM EDT [facility] Glucose Lvl 128(H) 70 - 99 mg/dL 01/27/2025 10:06 AM EDT [facility] BUN 21 8 - 23 mg/dL 01/27/2025 10:06 AM EDT [facility] Creatinine 1.20 0.51 - 1.30 mg/dL 01/27/2025 10:06 AM EDT [facility] eGFR (CKD-EPIcr 2020) 48(L) >=60 mL/min/1.7 3 m2 01/27/2025 10:06 AM EDT [facility] Comment:Estimated GFR was ca lculated using the CKD-EPIcr (2020) equation refit without race. The equation is recommended by the National Kidney Foundation - [place] Society of Nephrology Task Force. Blood VENOUS BLOOD / Unknown Venipuncture / Unknown 01/27/2025 8:46 AM EDT 01/27/2025 9:41 AM EDT us Jone Watkins MD CHEMISTRY ORDERABLES Final Res ult [facility] [address] [place] [address] * (ABNORMAL) GLUCOSE METER POC (01/27/2025 8:45 AM EDT) Only the most recent of7 resultswithin the time period is included. Glucose Meter POC 141(H) 70 - 100 mg/dL 01/27/2025 8:46 AM EDT [facility] Sample Type Capillary 01/27/2025 8:46 AM EDT [facility] Patient Status Non-Critical Patient 01/27/2025 8:46 AM EDT [facility] Blood BLOOD SPECIMEN / Unknown 01/27/2025 8:45 AM EDT 01/27/2025 8:46 AM EDT Edenilson Hirsch MD POINT OF CARE TEST ORDERABLES Fi nal Result Performing Organization Address [facility] Co de Phone Number [facility] [address] [place] [address] * ECG AND WAVEFORMS - TELEMETRY (01/27/2025 7:49 AM EDT) Only the most recent of4 resultswithin the time period is included. [facility] ECG INTERPRET Sinus Bradycardia [facility] 01/27/2025 7:49 AM EDT Narrative [facility] - 01/27/2025 8:00 AM EDT ROUTINE/AK [place] 0.19 QRS 0.08 RR 1.05 QT 0.43 QTc 0.42 See Clinical Report link for waveform capture us Unknown Provider POINT OF CARE CARDIOLOGY Final Result Performing Organization Address [facility] de Phone Number [facility] [address] [place] [address] * (ABNORMAL) URINALYSIS REFLEX (01/26/2025 11:39 AM EDT) Pathologist [facility] UA Color Yellow 01/26/2025 1:48 PM EDT [facility] UA Appear Slightly Cloudy(A) Clear 01/26/2025 1:48 PM EDT [facility] UA Glucose Negative Negative mg/dL 01/26/2025 1:48 PM EDT [facility] UA Ketones Negative Negative mg/dL 01/26/2025 1:48 PM EDT [facility] UA Blood Negative Negative 01/26/2025 1:48 PM EDT [facility] UA pH 6.0 5.0 - 8.0 pH 01/26/2025 1:48 PM EDT [facility] UA Protein Negative Negative mg/dL 01/26/2025 1:48 PM EDT [facility] UA Urobilinogen 0.2 <=1 mg/dL 1:48 PM EDT [facility] UA Bili Negative Negative 01/26/2025 1:48 PM EDT [facility] UA Nitrite Negative Negative 01/26/2025 1:48 PM EDT [facility] UA Leuk Est Trace(A) Negative 01/26/2025 1:48 PM EDT [facility] UA Spec Grav 1.025 1.001 - 1.035 no units 01/26/2025 1:48 PM EDT [facility] Comment:Reference range yara d for random specimens only. UA WBC 5(H) 0 - 4 /HPF 01/26/2025 1:48 PM EDT [facility] UA Squam Epi Rare /LPF 01/26/2025 1:48 PM EDT [facility] UA Bacteria 4+(A) Negative /HPF 01/26/2025 1:48 PM EDT [facility] Urine STRUCTURE OF URINARY TRACT PROPER / Unknown 01/26/2025 11:39 AM EDT 01/26/2025 1:40 PM EDT us Edenilson Hirsch MD URINE ORDERABLES Final Result Performing Organization Address [facility] Co de Phone Number [address] [address] * EXTRA SHORT URINE CX (01/26/2025 11:39 AM EDT) Urine STRUCTURE OF URINARY TRACT PROPER / Unknown 01/26/2025 11:39 AM EDT 01/26/2025 1:40 PM EDT us Edenilson Hirsch MD MICROBIOLOGY - GENERAL ORDERABLE S Final Result Performing Organization Address [facility] Co de Phone Number [address] [address] * (ABNORMAL) URINE CULTURE (NO STAIN) (01/26/2025 11:39 AM EDT) Culture Positive Growth(A) 01/28/2025 10:25 AM EDT [facility] Culture >100,000 CFU/mL Klebsiella pneumoniae SUSCEPTIBI LITY RESULT 01/28/2025 10:25 AM EDT [facility] Urine STRUCTURE OF URINARY TRACT PROPER / [...] MICROBIOLOGY - GENERAL ORDERABLE S Final Result [facility] [address] [facility] , [place] [address] * EEG AWAKE AND DROWSY (01/26/2025 11:20 AM EDT) Anatomical Region Laterality Modality Electroencephalo graphy Impressions 01/26/2025 12:14 PM EDT : This EEG was normal in wakefulness and drowsiness. There were no epileptiform abnormalities or seizures. Juan Sneed MD Neurology Narrative 01/26/2025 12:14 PM EDT [facility] DEPARTMENT OF NEUROLOGY [facility] Patient: Juani Arenas Age: 69 y.o. [...] lead EKG channel revealed a regular rhythm. us Juan Sneed MD IMG EEG ORDERABLES Final Resu lt * EC ECHOCARDIOGRAM COMPLETE W DOPPLER AND COLOR FLOW MAPPING (01/26/2025 7:53 AM EDT) AORTIC STENOSIS no PYRAMIS MITRAL REGURGITATION trace [...] and a RV s' of 14.3 cm/s. Edenilson Hirsch MD IMG ECHO ORDERABLES Final Result * MRI BRAIN WO CONTRAST (01/25/2025 10:16 [...] of the ordering clinician. Edenilson Hirsch MD IM MRI ORDERABLES Final Result * CBC WITH DIFF (01/25/2025 9:00 PM EDT) Only the most recent of5 resultswithin the time period is included. WBC 7.8 3.7 - 10.3 x10(3)/mcL 01/25/2025 9:10 PM EDT [facility] RBC 4.45 3.90 - 5.20 x10(6)/mcL 01/25/2025 9:10 PM EDT [facility] Hgb 13.5 11.2 - 15.7 g/dL 01/25/2025 9:10 PM EDT [facility] Hct 38.8 34.0 - 45.0 % 01/25/2025 9:10 PM EDT [facility] MCV 87.2 80.0 - 100.0 fL 01/25/2025 9:10 PM EDT [facility] MCH 30.3 26.0 - 34.0 pg 01/25/2025 9:10 PM EDT [facility] MCHC 34.8 30.7 - 35.5 g/dL 01/25/2025 9:10 PM EDT [facility] RDW 12.6 <=14.9 % 01/25/2025 9:10 PM EDT [facility] Platelet 193 155 - 369 x10(3)/mcL 01/25/2025 9:10 PM EDT [facility] MPV 9.4 8.8 - 12.5 fL 01/25/2025 9:10 PM EDT [facility] Neut Percent 53.9 % 01/25/2025 9:10 PM EDT [facility] Comment:Neutrophils equals s egs plus bands Imm Gran% 0.4 % 01/25/2025 9:10 PM EDT [facility] Comment:Automated count of m etamyelocytes, myelocytes and promyelocytes. Lymph Percent 35.7 % 01/25/2025 9:10 PM EDT [facility] Grainger Percent 8.7 % 01/25/2025 9:10 PM EDT [facility] Eos Percent 0.9 % 01/25/2025 9:10 PM EDT [facility] Baso Percent 0.4 % 01/25/2025 9:10 PM EDT [facility] Neut # 4.2 1.6 - 6.1 x10(3)/mcL 01/25/2025 9:10 PM EDT [facility] Comment:Neutrophils equals s egs plus bands IMMGRAN# 0.0 0.0 - 0.1 x10(3)/mcL 01/25/2025 9:10 PM EDT [facility] Comment:Automated count of m etamyelocytes, myelocytes and promyelocytes. An absolute IG <0.1 is reported as 0.0. Lymph # 2.8 1.2 - 3.9 x10(3)/mcL 01/25/2025 9:10 PM EDT [facility] Grainger # 0.7 0.3 - 0.9 x10(3)/mcL 01/25/2025 9:10 PM EDT [facility] Eos# 0.1 0.0 - 0.5 x10(3)/mcL 01/25/2025 9:10 PM EDT [facility] Baso # 0.0 0.0 - 0.1 x10(3)/[facility] 01/25/2025 9:10 PM EDT [facility] Blood VENOUS BLOOD / Unknown Venipuncture / Unknown 01/25/2025 9:00 PM EDT 01/25/2025 9:08 PM EDT us Edenilson Hirsch MD HEMATOLOGY ORDERABLES Final Resu lt Performing Organization Address [facility]/ZIP Co de Phone Number [facility] [address] [facility] [place] [address] * LIPID PANEL REFLEX (01/25/2025 8:59 PM EDT) Cholesterol 128 <200 mg/dL 01/26/2025 9:16 AM EDT [facility] [place] Comment: < 200 Desirable 200 - 239 Borderline High >= 240 High Triglyceride 130 <150 mg/dL 01/26/2025 9:16 AM EDT [facility] Comment: < 150 Normal 150 - 199 Borderline High 200 - 499 High >= 500 Very High HDL 44 >=40 mg/dL 01/26/2025 9:16 AM EDT [facility] Comment: > 60 Optimal 40 - 60 Acceptable < 40 Low LDL Calculated 61 <100 mg/dL 01/26/2025 9:16 AM EDT [facility] Comment: < 100 Optimal 100 - 129 Near or above optimal 130 - 159 Borderline High 160 - 189 High >= 190 Very High The National Institutes of Health (NIH) equation is used for all lipid panels that report calculated LDL (LDL-C). Non-HDL-C Calculated 84 <=129 mg/dL 01/26/2025 9:16 AM EDT [employer] Comment: <130 Desirable 130-159 Above Desirable 160-189 Borderline High 190-219 High >= 220 Very High Fasting Specimen? 025 9:16 AM EDT [facility] Blood VENOUS BLOOD / Unknown Venipuncture / Unknown 01/25/2025 8:59 PM EDT 01/25/2025 9:08 PM EDT us Jesse Merino MD CHEMISTRY ORDERABLES Jessie l Result [facility] [address] [place] [address] , [place] [address] * (ABNORMAL) PT / INR (01/25/2025 8:59 PM EDT) Only the most recent of2 resultswithin the time period is included. PT 16.3(H) 10.5 - 13.6 second(s) 01/25/2025 9:18 PM EDT [facility] INR 1.41(H) 0.91 - 1.18 (ratio) 01/25/2025 9:18 PM EDT [facility] Comment: Level of Therapy Indications Target INR Range Standard Dose Treatment and prophylaxis of venous 2.0 - 3.0 thrombosis, pulmonary embolism High Dose High risk patients with mechanical 2.5 - 3.5 heart valves Blood VENOUS BLOOD / Unknown Venipuncture / Unknown 01/25/2025 8:59 PM EDT 01/25/2025 9:08 PM EDT Edenilson Hirsch MD HEMATOLOGY ORDERABLES Final Resu lt [facility] [address] [place] [address] * (ABNORMAL) HEMOGLOBIN A1C (01/25/2025 8:59 PM EDT) Only the most recent of2 resultswithin the time period is included. Hgb A1C 6.1(H) 4.2 - 5.6 % 01/26/2025 2:18 AM EDT [facility]. Avg Glucose 128 mg/dL 01/26/2025 2:18 AM EDT [facility] Blood VENOUS BLOOD / Unknown Venipuncture / Unknown 01/25/2025 8:59 PM EDT 01/25/2025 9:08 PM EDT Narrative [facility] - 01/26/2025 2:18 AM EDT REFERENCE RANGE: Normal: 4.0-5.6% Pre-diabetes: 5.7-6.4% Provisional diagnosis of diabetes: >6.4% Hgb F>10% and anything which shortens red cell survival, such as hemolytic anemia, or unstable hemoglobin variants such as HbSS, HbSC, or HbCC, will lower the HbA1c value associated with a given level of glycemic control. Edenilson Hirsch MD CHEMISTRY ORDERABLES Final Resul t Performing Organization Address [facility] Co de Phone Number [facility] [employer] [facility] [address] [facility] , [address] [place] [id number] * HEPATIC FUNCTION PANEL (01/25/2025 8:59 PM EDT) Only the most recent of7 resultswithin the time period is included. Total Protein 6.7 6.4 - 8.3 gm/dL 01/25/2025 9:26 PM EDT [facility] Albumin 4.3 3.2 - 4.6 gm/dL 01/25/2025 9:26 PM EDT [facility] Bili Direct 0.3 0.0 - 0.3 mg/dL 01/25/2025 9:26 PM EDT [facility] Bili Total 0.7 0.2 - 1.3 mg/dL 01/25/2025 9:26 PM EDT [facility] AST 27 <=40 U/L 01/25/2025 9:26 PM EDT [facility] ALT 28 <=41 U/L 01/25/2025 9:26 PM EDT [facility] Alk Phos 89 36 - 123 U/L 01/25/2025 9:26 PM EDT [facility] Blood VENOUS BLOOD / Unknown Venipuncture / Unknown 01/25/2025 8:59 PM EDT 01/25/2025 9:08 PM EDT Edenilson Hirsch MD CHEMISTRY ORDERABLES Final Resul t Performing Organization Address [facility] Co de Phone Number [facility] [address] [place] [address] * EK EKG 12 LEAD (01/25/2025 8:48 PM EDT) Only the most recent of3 resultswithin the time period is included. Anatomical Region Laterality Modality Electrocardiogra phy 01/25/2025 8:56 PM EDT Impressions 01/26/2025 6:47 AM EDT [facility] Test Date: 2025-01-25 Pat Name: 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: : 1955 Requested By: EDENILSON HIRSCH Order Number: [id number] Reading : Rikki Calderon Measurements Intervals [place] Rate: 60 P: 61 [place]: 168 QRS: -8 QRSD: 92 T: 23 QT: 428 QTc: 430 Interpretive Statements SINUS RHYTHM BORDERLINE LEFT AXIS DEVIATION NONSPECIFIC T WAVE ABNORMALITY WARNING: DATA QUALITY MAY AFFECT INTERPRETATION Electronically Signed On 01-26-2025 06:47:17 EDT by Rikki Calderon Edenilson Hirsch MD IMG ECG ORDERABLES Final Result * POCT GLYCATED HEMOGLOBIN, TOTAL (08/17/2024 9:28 AM EST) Hemoglobin A1C 5.9 4 - 6 % SEP OFFICE Lot Number SEP OFFICE Expiration Date SEP OFFICE SeriAl # SEP OFFICE 08/17/2024 9:28 AM EST us Ysabel Bhatt MD POINT OF CARE TEST ORDERABLE S Final Result Performing Organization Address [facility] Co de Phone Number SEP OFFICE * SCANNED EKG (10/18/2021 9:44 PM EDT) Anatomical Region Laterality Modality Other 10/18/2021 9:44 PM EDT us Unknown Provider IMG ECG ORDERABLES Final Result * SCANNED RHYTHM STRIPS (10/18/2021 9:44 PM EDT) Anatomical Region Laterality Modality Other 10/18/2021 9:44 PM EDT us Unknown Provider IMG ECG ORDERABLES Final Result * HEMOGLOBIN AND HEMATOCRIT (10/17/2021 6:34 AM EDT) Only the most recent of2 resultswithin the time period is included. Hgb 12.1 11.2 - 15.7 g/dL 10/17/2021 7:00 AM EDT [facility] Hct 36.0 34.0 - 45.0 % 10/17/2021 7:00 AM EDT [facility] Blood VENOUS BLOOD / Unknown Venipuncture / Unknown 10/17/2021 6:34 AM EDT 10/17/2021 6:55 AM EDT Jose R Otero MD HEMATOLOGY ORDERABLES Final Result Performing Organization Address [facility] Co de Phone Number [facility] [address] [place] [address] * MAGNESIUM LEVEL (10/17/2021 6:34 AM EDT) Magnesium 2.0 1.6 - 2.4 mg/dL 10/17/2021 7:19 AM EDT [facility] Blood Venipuncture / Unknown 10/17/2021 6:34 AM EDT 10/17/2021 6:55 AM EDT us Jose R Otero MD CHEMISTRY ORDERABLES Final R esult [facility] [address] [place] [address] * FL CHOLANGIOGRAM INTRAOPERATIVE (2021 5:15 PM EDT) Anatomical Region Laterality Modality Radio Fluoroscop y 2021 5:15 PM EDT Impressions 2021 5:37 PM EDT A single fluoroscopic spot image is provided and shows adequate opacification of the biliary tree. Antegrade flow into the duodenum is documented. No discrete focal filling defect is identified. - Note: Radiology results need to be interpreted within a comprehensive clinical context. If you have questions about the radiology report, please contact the office of the ordering clinician. Narrative 2021 5:37 PM EDT FL CHOLANGIOGRAM INTRAOPERATIVE, 2021 5:15 PM CLINICAL HISTORY: Intraoperative imaging COMPARISON: MRCP from October 11, 2021 PROCEDURE COMMENTS: Fluoroscopy time 0.5 minutes. 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 Procedure Note Jone Sargent MD - 2021 [place] CHOLANGIOGRAM INTRAOPERATIVE, 2021 5:15 PM CLINICAL HISTORY: Intraoperative imaging COMPARISON: MRCP from October 11, 2021 PROCEDURE COMMENTS: Fluoroscopy time 0.5 minutes. 1 representativeimages archived in PACS. IMPRESSION: A single fluoroscopic spot image is provided and shows adequate opacification of the biliary tree. Antegrade flow into the duodenum is documented. No discrete focal filling defect is identified. - Note: Radiology results need to be interpreted within a comprehensiveclinical context. If you have questions about the radiology report, please contactthe office of the ordering clinician. us Portillo Kerr DO IMG FLUOROSCOPY ORDERABLES Final Result * PATHOLOGY TISSUE REQUEST (2021 4:59 PM EDT) CASE REPORT Surgical Pathology Case: [id number] Authorizing Provider: Portillo Kerr DO Collected: 2021 1659 Ordering Location: [facility] SURGERY Received: 10/17/2021 0801 Pathologist: Lorelei Romero MD Specimen: Gallbladder, gallbladder 10/18/2021 11:13 AM EDT [facility] FINAL DIAGNOSIS Gallbladder, cholecystectomy: - Chronic cholecystitis with cholelithiasis and cholesterolosis. 10/18/2021 11:13 AM EDT [facility] at 1113 EDT GROSS DESCRIPTION Recieved in formalin, in a container labeled with the patient's name, hospital number, and gallbladder , is a 12.1 x 4.4 x 3.9 cm intact gallbladder with green-blue, smooth serosa. The wall averages 0.2 cm in thickness and the lumen contains viscous green bile with a 0.8 x 0.4 x 0.3 cm aggregate of yellow stones identified. The mucosa is green, granular and trabeculated with diffuse guzmán-yellow stippling. No periductal lymph node is identified. Retail Supervisor sections of the fundus, body, and neck of the gallbladder, and the cystic duct margin (en face) are submitted in A1. ZN 10/17/2021 8:34 AM 10/18/2021 11:13 AM EDT [facility] MICROSCOPIC DESCRIPTION Microscopic examination is performed and the findings corroborate the diagnosis. 10/18/2021 11:13 AM EDT [facility] EMBEDDED IMAGES 10/18/2021 11:13 AM EDT [facility] Tissue ENTIRE GALLBLADDER / Unknown 2021 4:59 PM EDT 10/17/2021 8:01 AM EDT us Portillo Kerr DO PATHOLOGY ORDERABLES Final Result [facility] [address] [place] [address] * INTRAOP AIRWAY PLACEMENT (2021 3:55 PM EDT) Narrative [facility] - 2021 3:55 PM EDT Damaris Singh CRNA 2021 4:07 PM Intraop Airway Placement: Date/Time: 2021 3:55 PM Induction type: IV Mask size: Standard adult Pre-Oxygenation: Standard Mask ventilation: Easy mask ventilation Technique: Video laryngoscope Laryngoscope blade: Gimenez Blade size: 3 Grade view: I Airway type: ETT- cuffed Topical Anesthetic/Lubricant: Lidocaine 2% jelly Intubation assist devices: Stylet 14fr Airway location: Oral Device size: 7mm Secured at: 20 cm Secured by: Tape Measured from: Lips Placement verified: Symmetric chest wall motion, Auscultation and End tidal CO2 Condition: Atraumatic and Unchanged Insertion attempts: 1 Title: CHAIN SAW MECHANIC us Alfonso Hoang MD [place] ANESTHESIA Final Result Performing Organization Address [facility] de Phone Number [facility] [address] [place] [id number] * LIPASE LEVEL (2021 6:50 AM EDT) Only the most recent of4 resultswithin the time period is included. Lipase Lvl 29 13 - 60 U/L 2021 8:26 AM EDT [facility] Blood VENOUS BLOOD / Unknown Venipuncture / Unknown 2021 6:50 AM EDT 2021 7:27 AM EDT Radha López MEDICAL PLANNER CHEMISTRY ORDERABLES Final Re sult Performing Organization Address [facility] de Phone Number [facility] [address] [place] [address] * [place] ERCP BILIARY AND PANCREATIC (10/15/2021 2:58 PM EDT) Only the most recent of2 resultswithin the time period is included. Anatomical Region Laterality Modality Abdomen Radio Fluoroscop y 10/15/2021 2:58 PM EDT Impressions 10/15/2021 3:58 PM EDT Procedure performed by Dr. Viveros. Single image obtained showing an endoscope in place with wire extending through the patient's known pancreatic duct. No contrast injected. - Note: Radiology results need to be interpreted within a comprehensive clinical context. If you have questions about the radiology report, please contact the office of the ordering clinician. Narrative 10/15/2021 3:58 PM EDT [place] ERCP BILIARY AND PANCREATIC, 10/15/2021 2:58 PM CLINICAL HISTORY: Common duct stones. COMPARISON: MRCP 10/11/2021 PROCEDURE COMMENTS: Fluoroscopy time 7.6 minutes. 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 Procedure Note Jay Arnold MD - 10/15/2021 FL ERCP BILIARY AND PANCREATIC, 10/15/2021 2:58 PM CLINICAL HISTORY: Common duct stones. COMPARISON: MRCP 10/11/2021 PROCEDURE COMMENTS: Fluoroscopy time 7.6 minutes. 1 representativeimages archived in PACS. IMPRESSION: Procedure performed by Dr. Viveros. Single image obtained showing an endoscope in place with wire extending through the patient's knownpancreatic duct. No contrast injected. - Note: Radiology results need to be interpreted within a comprehensiveclinical context. If you have questions about the radiology report, please contactthe office of the ordering clinician. us Radha López APRN IMG FLUOROSCOPY ORDERABLES Fi nal Result * INTRAOP AIRWAY PLACEMENT (10/15/2021 1:26 PM EDT) Narrative [facility] - 10/15/2021 1:26 PM EDT Damaris Singh CRNA 10/15/2021 1:39 PM Intraop Airway Placement: Date/Time: 10/15/2021 1:26 PM Induction type: IV Mask size: Standard adult Pre-Oxygenation: Standard Mask ventilation: Easy mask ventilation Technique: Video laryngoscope Laryngoscope blade: Gimenez Blade size: 3 Grade view: I Airway type: ETT- cuffed Topical Anesthetic/Lubricant: LTA 4% Lidocaine Intubation assist devices: Stylet 14fr Airway location: Oral Device size: 7mm Secured at: 20 cm Secured by: Tape Measured from: Lips Placement verified: Auscultation, End tidal CO2 and Symmetric chest wall motion Condition: Atraumatic and Unchanged Insertion attempts: 1 Title: CHAIN SAW MECHANIC us René Samson MD [place] ANESTHESIA Final Result [facility] [address] [place] [id number] * GMED ERCP (10/15/2021 1:00 AM EDT) 10/15/2021 1:00 AM EDT Impressions [facility] - 10/15/2021 3:55 PM EDT Plan: This section is an excerpt of the full report. us Nathaly Viveros MD GI PROCEDURE ORDERAB LES Final Result Performing Organization Address [facility]/ZIP Co de Phone Number [facility] [address] [place] [address] * CORONAVIRUS 2019 (10/14/2021 10:01 AM EDT) [facility] CORONAVIRUS [id number] Not Detected Not Detected 10/14/2021 8:45 PM EDT [facility] Comment: Caution should be exercised when interpreting a result of 'Not Detected'. A result of 'Not Detected' does not rule out COVID-19 and cannot be used as sole basis for treatment or patient management decisions. If COVID-19 is still suspected following a 'Not Detected' result, re-testing should be considered. This test is a nucleic acid amplification test intended for the qualitative detection of nucleic acid from the SARS-CoV-2 in upper respiratory samples collected from individuals suspected of COVID-19. Test is performed on the [employer] platform under the FDA's Emergency Use Authorization (EUA). [employer] Provider Fact Sheet: https://www.fda.gov/media/411349/download [employer] Patient Fact Sheet: https://www.fda.gov/media/900448/download Performed at [email or web address] [address] [place] [address]. [id number] CLIA [id number] Swab BOTH ANTERIOR NARES / Unknown 10/14/2021 10:01 AM EDT 10/14/2021 10:21 AM EDT us Skyler Costa MD MICROBIOLOGY - GENERAL ORDERA BLES Final Result Performing Organization Address City/[facility]/ZIP Co de Phone Number [facility] [address] [place] [address], [place] [address] * (ABNORMAL) COMPREHENSIVE METABOLIC PANEL (10/13/2021 7:07 AM EDT) Only the most recent of4 resultswithin the time period is included. Sodium 143 136 - 145 mmol/L 10/13/2021 7:31 AM [facility] Potassium 3.9 3.5 - 5.0 mmol/L 10/13/2021 7:31 AM EDT [facility] Chloride 112(H) 98 - 107 mmol/L 10/13/2021 7:31 AM [facility] Total CO2 19(L) 22 - 29 mmol/L 10/13/2021 7:31 AM [facility] Anion Gap 12 7 - 16 mmol/L 10/13/2021 7:31 AM [facility] Calcium 8.3(L) 8.8 - 10.4 mg/dL 10/13/2021 7:31 AM [facility] Glucose Lvl 100 82 - 100 mg/dL 10/13/2021 7:31 AM [facility] BUN 11 8 - 23 mg/dL 10/13/2021 7:31 AM [facility] Creatinine 0.92 0.51 - 1.30 mg/dL 10/13/2021 7:31 AM [facility] Albumin 3.6 3.2 - 4.6 gm/dL 10/13/2021 7:31 AM [facility] Total Protein 5.9(L) 6.4 - 8.3 gm/dL 10/13/2021 7:31 AM [facility] Bili Total 1.1 0.1 - 1.3 mg/dL 10/13/2021 7:31 AM [facility] ALT 111(H) <=41 U/L 10/13/2021 7:31 AM [facility] AST 29 <=40 U/L 10/13/2021 7:31 AM [facility] Alk Phos 137(H) 36 - 123 U/L 10/13/2021 7:31 AM EDT [facility] eGFR (CKD-EPIcr 2020) 68 >=60 mL/min/1.7 3 m2 10/13/2021 7:31 AM EDT [facility] Comment:Estimated GFR was ca lculated using the CKD-EPIcr (2020) equation refit without race. The equation is recommended by the National Kidney Foundation - [place] Society of Nephrology Task Force. Blood VENOUS BLOOD / Unknown Venipuncture / Unknown 10/13/2021 7:07 AM EDT 10/13/2021 7:11 AM EDT us Skyler Costa MD CHEMISTRY ORDERABLES Final Re sult [facility] [address] [facility] [place] [address] * MRI MRCP WO CONTRAST (10/11/2021 4:55 PM EDT) Anatomical Region Laterality Modality Abdomen Magnetic Resonan ce 10/11/2021 4:55 PM EDT Impressions 10/11/2021 5:11 PM EDT Choledocholithiasis and cholecystolithiasis present - Note: Radiology results need to be interpreted within a comprehensive clinical context. If you have questions about the radiology report, please contact the office of the ordering clinician. Narrative 10/11/2021 5:11 PM EDT MRI ABDOMEN WITHOUT CONTRAST WITH MRCP, 10/11/2021 4:55 PM CLINICAL HISTORY: -choledocholithiasis. COMPARISON: CT scan abdomen and pelvis 10/11/2021 PROCEDURE COMMENTS: Multiplanar multiecho MR imaging of the abdomen with MRCP per protocol. No contrast given. FINDINGS: Best seen on T2-weighted axial images are multiple 2 to 3 mm filling defects in the common bile duct representing choledocholithiasis. Common bile duct measures 8 mm. No intrahepatic biliary dilatation. Stones are present in the gallbladder. The pancreatic duct is now at the upper limits of normal in caliber. A pancreatic duct stent is present and is faintly visible. No evidence of pancreatic mass. Visualized portions of the liver, spleen, kidneys and adrenal glands are normal. Procedure Note Yared Cee MD - 10/11/2021 MRI ABDOMEN WITHOUT CONTRAST WITH MRCP, 10/11/2021 4:55 PM CLINICAL HISTORY: -choledocholithiasis. COMPARISON: CT scan abdomen and pelvis 10/11/2021 PROCEDURE COMMENTS: Multiplanar multiecho MR imaging of the abdomen withMRCP per protocol. No contrast given. FINDINGS: Best seen on T2-weighted axial images are multiple 2 to 3 mmfilling defects in the common bile duct representing choledocholithiasis. Commonbile duct measures 8 mm. No intrahepatic biliary dilatation. Stones are presentin the gallbladder. The pancreatic duct is now at the upper limits of normal in caliber. A pancreatic duct stent is present and is faintly visible. No evidence of pancreatic mass. Visualized portions of the liver, spleen, kidneys andadrenal glands are normal. IMPRESSION: Choledocholithiasis and cholecystolithiasis present - Note: Radiology results need to be interpreted within a comprehensiveclinical context. If you have questions about the radiology report, please contactthe office of the ordering clinician. Radha López APRN IMG MRI ORDERABLES Final Resu lt * CT ABDOMEN PELVIS WO ORAL OR IV CONTRAST (10/11/2021 1:37 PM EDT) Anatomical Region Laterality Modality Abdomen, Pelvis Computed Tomogra phy 10/11/2021 1:37 PM EDT Impressions 10/11/2021 1:48 PM EDT 1. No intrahepatic biliary dilatation. 2. No choledocholithiasis seen. - Note: Radiology results need to be interpreted within a comprehensive clinical context. If you have questions about the radiology report, please contact the office of the ordering clinician. Narrative 10/11/2021 1:[address] ABDOMEN AND PELVIS WITHOUT IV OR ORAL CONTRAST, 10/11/2021 1:37 PM CLINICAL HISTORY: -CBD stone, CBD dilatation. COMPARISON: 10/09/2021 PROCEDURE COMMENTS: Multidetector CT examination of the abdomen and pelvis without IV or oral contrast per protocol. Multiplanar reconstructions. Dose 1 : CT DLP Total : 1009.88 mGycm DLP Spiral Max : 1002.95 mGycm Maximum CTDI Vol : 21.33 mGy SSDE : 15.9975 mGy SSDE Diameter : 43.4 cm SSDE Source : Lat FINDINGS: LOWER THORAX: Lung bases unremarkable. ABDOMEN AND PELVIS: No intrahepatic biliary dilatation. No hepatic mass. Gallstones seen on recent ultrasound not seen on CT. No CT evidence of acute cholecystitis. There is a stent in the pancreatic duct. No choledocholithiasis is seen on CT. Common bile duct measures up to 8 mm in diameter. Remainder solid abdominal organs within normal limits. No bowel obstruction or acute inflammatory process. No evidence of appendicitis. Pelvic viscera unremarkable. No abnormal fluid or adenopathy. No acute osseous abnormality identified. Procedure Note Zachary Lee MD - 10/11/2021 CT ABDOMEN AND PELVIS WITHOUT IV OR ORAL CONTRAST, 10/11/2021 1:37 PM CLINICAL HISTORY: -CBD stone, CBD dilatation. COMPARISON: 10/09/2021 PROCEDURE COMMENTS: Multidetector CT examination of the abdomen andpelvis without IV or oral contrast per protocol. Multiplanar reconstructions. Dose 1 : CT DLP Total : 1009.88 mGycm DLP Spiral Max : 1002.95 mGycm Maximum CTDI Vol : 21.33 mGy SSDE : 15.9975 mGy SSDE Diameter : 43.4 cm SSDE Source : Lat FINDINGS: LOWER THORAX: Lung bases unremarkable. ABDOMEN AND PELVIS: No intrahepatic biliary dilatation. No hepatic mass. Gallstones seen on recent ultrasound not seen on CT. No CT evidence ofacute cholecystitis. There is a stent in the pancreatic duct. Nocholedocholithiasis is seen on CT. Common bile duct measures up to 8 mm in diameter. Remaindersolid abdominal organs within normal limits. No bowel obstruction or acute inflammatory process. No evidence ofappendicitis. Pelvic viscera unremarkable. No abnormal fluid or adenopathy. No acute osseous abnormality identified. IMPRESSION: 1. No intrahepatic biliary dilatation. 2. No choledocholithiasis seen. - Note: Radiology results need to be interpreted within a comprehensiveclinical context. If you have questions about the radiology report, please contactthe office of the ordering clinician. Michelle Sr PA-C IMSylvia CT ORDERABLES Fi nal Result * INTRAOP AIRWAY PLACEMENT (10/11/2021 9:51 AM EDT) Narrative [facility] - 10/11/2021 9:51 AM EDT Johnson José Eda, CHAIN SAW MECHANIC 10/11/2021 10:02 AM Intraop Airway Placement: Date/Time: 10/11/2021 9:51 AM Induction type: IV Mask size: Standard adult Pre-Oxygenation: Standard Mask ventilation: Easy mask ventilation Technique: Video laryngoscope Laryngoscope blade: Gimenez Blade size: 3 Grade view: I Airway type: ETT- cuffed Topical Anesthetic/Lubricant: None Intubation assist devices: Stylet 14fr Airway location: Oral Device size: 7mm Secured at: 21 cm Secured by: Tape Measured from: Lips Placement verified: Auscultation, End tidal CO2 and Symmetric chest wall motion Condition: Atraumatic and Unchanged Insertion attempts: 1 Title: CHAIN SAW MECHANIC us Ko Zambrano MD [place] ANESTHESIA Final Res ult Performing Organization Address [facility] de Phone Number [facility] [address] [place] [address] * GMED ERCP (10/11/2021 9:30 AM EDT) 10/11/2021 9:30 AM EDT Impressions [facility] - 10/11/2021 12:15 PM EDT Plan: This section is an excerpt of the full report. us Nathaly Viveros MD GI PROCEDURE ORDERAB LES Final Result Performing Organization Address [facility] Phone Number [facility] [address] [place] [address] * MICROALBUMIN/CREATININE RATIO URINE (10/10/2021 1:44 PM EDT) Urine Microalb <12.0 mg/L 10/10/2021 7:43 PM EDT [email or web address], [facility] Urine Creatinine 52.2 mg/dL 10/11/19 7:43 PM EDT [email or web address], [facility] Ur Microalb/Creat 022 7:43 PM EDT [email or web address], [facility] Comment: Because the albumin level is below the level of detection in this urine specimen, the laboratory is unable to calculate a reliable albumin/creatinine ratio. Microalbuminuria is unlikely if the urine albumin concentration is less than 20- 30 mg/L in a random specimen. Urine URINE SPECIMEN COLLECTION / Unknown 10/10/2021 1:44 PM EDT 10/10/2021 4:09 PM EDT us Skyler Costa MD URINE ORDERABLES Final Result [facility] [place] [address], [place] [address] * CORONAVIRUS 2019 - EXT LAB (10/09/2021 8:53 PM EDT) EXT CORONAVIRUS [id number] Not Detected Not Detected [facility] us [facility] Provider MICROBIOLOGY - GENERAL ORDER XIOMARA Final Result Performing Organization Address [facility] Co de Phone Number [facility] [address] [place] [address] * XR HIP LEFT AP AND LATERAL (10/07/2013 12:36 PM EDT) Anatomical Region Laterality Modality Hip Radiographic Nelly ging Impressions 10/11/2013 9:11 AM EDT : 1. Severe osteoarthritis of the left hip. 2. Total right hip arthroplasty, only partially imaged. Lul Morataya M.D. Narrative 10/11/2013 9:11 AM EDT EXAMINATION: AP Radiograph of the Pelvis and Frog Leg Radiograph of the Left Hip Dated 10/07/2013 CLINICAL HISTORY: 57-year-old female with left hip pain. COMPARISON: No prior studies are available for comparison. FINDINGS: The pelvic ring is intact. The sacroiliac joints and pubic symphysis have a normal appearance. Moderate to severe joint space loss of the left hip. Subchondral degenerative cyst like change of the left acetabulum and left femoral head. Mild marginal osteophyte formation of the left hip. Patient is status post total right hip arthroplasty, only partially imaged. No fractures or dislocations are identified. Procedure Note Jossue Morataya MD - 10/11/2013 EXAMINATION: AP Radiograph of the Pelvis and Frog Leg Radiograph of theLeft Hip Dated 10/07/2013 CLINICAL HISTORY: 57-year-old female with left hip pain. COMPARISON: No prior studies are available for comparison. FINDINGS: The pelvic ring is intact. The sacroiliac joints andpubic symphysis have a normal appearance. Moderate to severe joint spaceloss of the left hip. Subchondral degenerative cyst like change of theleft acetabulum and left femoral head. Mild marginal osteophyte formationof the left hip. Patient is status post total right hip arthroplasty,only partially imaged. No fractures or dislocations are identified. IMPRESSION: 1. Severe osteoarthritis of the left hip. 2. Total right hip arthroplasty, only partially imaged. Lul Morataya M.D. us Bhavana Valentine PA-C IMG DIAGNOSTIC IMAGING ORDERA BLES Final Result * SCANNED PATHOLOGY REPORT (04/02/2010 12:00 AM EDT) Narrative 04/02/2010 7:01 PM EDT Ordered by an unspecified provider. Transcriptions Unknown, U - 04/02/2010 7:01 PM EDT us U Unknown PATHOLOGY ORDERABLES Final Resul t * SCANNED LABS (03/28/2010 12:00 AM EDT) Narrative 03/28/2010 10:34 AM EDT Ordered by an unspecified provider. Transcriptions Unknown, U - 03/28/2010 10:34 AM EDT us U Unknown HEMATOLOGY ORDERABLES Final Resu lt * HPV RESULTS (11/16/2009 11:19 AM EDT) HPV Specimen Thin Prep [facility] Comment: TEST INFORMATION: HPV DNA Probe, High Risk, Thin Prep Specimen. The High-risk HPV test detects HPV genotypes 16,18,31,33,39,45,51,52,58,59, and 68, which are associated with cervical cancer and its precursor lesions. However, cross-reactions with other genotypes may occur. Results should be correlated with cytologic and histologic findings. This test is an amplfied DNA signal assay by [employer], validated by [facility] in conjunction with [employer]. HPV dsDNA, Qualitative Negative [facility] Liquid based cytologic material (specimen) 11/16/2009 11:19 AM EDT 12/13/2009 11:20 AM EDT Raheem Negro MD MICROBIOLOGY - GENERAL ORDE [facility] Final Result Performing Organization Address [facility] Co de Phone Number [facility] [address] [place] [address] * PARCEL POST CARRIER CYTOLOGY REPORT (11/16/2009 6:03 AM EDT) Clinical Rn Manager Cytology Report PATIENT NAME:JUANI ARENAS Clinical Rn Manager Cytology Report Accession Number Collected Date/Time Received Date/Time [id number] 11/16/09 06:03 EDT 11/20/09 06:03 EDT GY Specimen Source Specimen Vag/Cerv/Endocx?: Cervical/Endocervi destinee Statement of Adequacy Satisfactory for Evaluation. Transformation Zone Absent. This is not unusual in a post-menopausal woman. Diagnosis NEGATIVE FOR INTRAEPITHELIAL LESION OR MALIGNANCY. Comment The Pap Smear is a screening test that aids in the detection of cervical cancer and cancer precursors. Both false positive and false negative results can occur. The test should be used at regular intervals, and positive results should be confirmed before definitive therapy. Processed using the ThinPrep Booth Manager automated cytology screening device ([employer]). Spinner Continuous: ADELAIDE 12/05/2009 Completed by: MARCUS Whitley (Electronically signed by) 12/05/2009 [facility] 11/16/2009 6:03 AM EDT Raheem Negro MD PATHOLOGY ORDERABLES Final Result Performing Organization Address [facility]/ZIP Co de Phone Number [facility] [address] [place] [address] Visit Diagnoses Diagnosis Start Date Heart disease Heart disease, unspecified 11/16/2009 Routine gynecological examination 11/16/2009 Choledocholithiasis Calculus of bile duct without mention of cholecystitis or obstruction 10/11/2021 Choledocholithiasis Calculus of bile duct without mention of cholecystitis or obstruction 10/14/2021 Biliary calculus of other site without obstruction 10/14/2021 Common bile duct stone Calculus of bile duct without mention of cholecystitis or obstruction 10/15/2021 Cholecystitis Cholecystitis, unspecified 2021 Cholecystitis Cholecystitis, unspecified 10/10/2021 Follow-up examination following surgery Follow-up examination, following unspecified surgery 11/05/2021 Hyperlipidemia associated with type 2 diabetes mellitus (HCC) 08/17/2024 Pre-diabetes Other abnormal glucose 08/17/2024 Class 2 severe obesity due to excess calories with serious comorbidity and body mass index (BMI) of 37.0 to 37.9 in adult (HCC) 08/17/2024 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, unspecified cerebrovascular disease type (HCC) 01/25/2025 Type 2 diabetes mellitus with stage 2 chronic kidney disease, unspecified whether intermediate project manager insulin use ([facility]) 01/25/2025 Stage 3 chronic kidney disease, unspecified whether stage 3a or 3b CKD ([facility]) 01/25/2025 Common bile duct stone Calculus of bile duct without mention of cholecystitis or obstruction 10/10/2021 Paroxysmal atrial fibrillation (HCC) Atrial fibrillation 10/10/2021 Current use of intermediate project manager anticoagulation Encounter for long-term (current) use of anticoagulants 10/10/2021 Pure hypercholesterolemia 10/10/2021 Hypothyroid Unspecified hypothyroidism 10/10/2021 Cholelithiasis Calculus of gallbladder without mention of cholecystitis or obstruction 10/10/2021 Stroke-like symptoms Other symptoms involving nervous and musculoskeletal systems 01/25/2025 Expressive aphasia Aphasia 01/25/2025 Hypothyroid Unspecified hypothyroidism 01/25/2025 Pure hypercholesterolemia 01/25/2025 Mild intermittent asthma without complication Unspecified asthma 01/25/2025 Type 2 diabetes mellitus (HCC) Type II or unspecified type diabetes mellitus without mention of complication, not stated as uncontrolled 01/25/2025 Chronic a-fib (HCC) Atrial fibrillation 01/25/2025 Coronary artery disease involving seminole coronary artery of seminole heart without angina pectoris 01/25/2025 Care Teams Serology Technician Relationship Specialty Start Date End Date No Pcp, Per Patient PCP - General 01/26/25
--- OUTSIDE RECORDS SUMMARY | 2025-02-22 16:39 | XMS_ITS | Referral Summary ---
Author Organization [facility] ([place], [place], [place], [place]) Address [address] [place] [address] Care Team Providers Care Unhairing Inspector Name Role Phone Ko Sexton MD Primary Care Provider [phone] Allergies Active Allergy Reactions Criticality Noted Date [...] Date Shun rded Speak language other than [place] at home Not on file 07/03/2023 Want [...] 08/04/2022 12:19 PM EST Plan of Treatment Not on file Insurance [address] [place] [address] [employer] PPO Member Subscriber Plan / Payer (Ef fective 2022-Present) Name:Juani Lamb Relation to Subscriber:Self Name:Juani Lamb Payer ID:[id number] Group ID:[id number] Type:Not on file Address: [place] [id number] [employer] MED[employer] PPO Advance Directives For more information, please contact: [phone] * Full Code (Latest Code Status on File) Date Activated Date Inactivated Comments 08/04/2022 7:37 PM 08/06/2022 5:18 PM Care Teams Unhairing Inspector Relationship Specialty Start Date End Date Ko Sexton MD [address] [place] [address] PCP - General Family Medicine 08/05/22
== END 2025-02-22 23:59 | disposition home or self-care (01) ==
LOC: RT 16:36
PROVIDERS: PCP Internal Medicine; Visit Provider Specialist
DX: I49.1 Atrial premature depolarization (principal); I47.19 Other supraventricular tachycardia; I49.3 Ventricular premature depolarization; I48.91 Unspecified atrial fibrillation; I63.9 Cerebral infarction, unspecified
CPT/HCPCS: 93270